=== PATIENT | male | born 1940 | race Caucasian/White ===

== ENCOUNTER → 2017-01-22 | Outpatient (CLI) | payer MEDICARE ==
--- NOTE | 2017-01-22 09:26 | US ---
EXAMINATION TYPE: US abdomen complete DATE OF EXAM: 01/22/2017 8:11 AM COMPARISON: CT chest April 20, 2010. CLINICAL HISTORY: R10.9 Abdominal pain. Pelvic pain per patient with scrotal pain. Patient had bilate ral inguinal hernia repair with mesh EXAM MEASUREMENTS: Liver Length: 10.5 cm Gallbladder Wall: 0.1 cm CBD: 0.4 cm Spleen: 11.0 cm Right Kidney: 9.7 x 6.0 x 5.4 cm Left Kidney: 10.1 x 5.5 x 5.0 cm Pancreas: hyperchoic Liver: fatty and heterogeneous Gallbladder: wnl Evidence for sonographic Benitez's sign: No CBD: wnl Spleen: wnl Right Kidney: wnl Left Kidney: wnl Upper IVC: wnl Abd Aorta: intimal wall thickening mid and distally, ectatic appearance distally Visualized liver is heterogeneously hyperechoic in appearance. Evaluation for focal masses is subopti mal due to the heterogeneity. Aorta is ectatic measuring up to 2.8 cm transversely distally. IMPRESSION: Diffuse fatty infiltration of liver is felt present. Ectasia of distal abdominal aorta bu t no greater than 3 cm aneurysmal change. No significant acute finding is seen.
--- NOTE | 2017-01-22 10:16 | US ---
EXAMINATION TYPE: US scrotum with doppler. Grayscale and color Doppler Duplex imaging performed of eugenio pittman scrotum. DATE OF EXAM: 01/22/2017 8:39 AM COMPARISON: NONE CLINICAL HISTORY: N45.1 Epididymitis; bilateral scrotal pain radiating to pelvis; taking testosterone injections for small gland size; bilateral inguinal hernia repair with mesh per patient history. EXAM MEASUREMENTS: TESTICLES: Right Testicle: 2.2 x 1.2 x 1.5 cm Left Testicle: 2.2 x 1.0 x 1.6 cm EPIDIDYMIS HEAD: Right Epididymis: 0.7 x 0.6 x 0.6 cm Left Epididymis: 1.0 x 0.4 x 0.6 cm Doppler performed to assess for testicular vascularity; good bilateral color flow and waveforms are s een. There is no evidence of testicular torsion. Hydrocele noted in right scrotal sac = 1.0 x 1.1 x 1.5cm . Left epididymal head cyst is imaged = 1.0 x 0.3 x 1.0cm. Left testicular appendix noted superiorly = 0.2 x 0.3 x 0.4cm. Cyst noted medially within left testicle = 0.2 x 0.1 x 0.1cm. Hydrocele is noted i n left scrotal sac = 3.2 x 1.7 x 0.5cm. Presence of varicoceles: none There is small right scrotal fluid collection or hydroceles seen medially. There is 3 mm cyst in the left epididymis. There is slightly larger but small sized left scrotal flui d collection or hydrocele. There is 1 mm simple appearing cyst in the periphery of the left testicle. Comparison views shows symmetric blood flow to both testicles without abnormal eccentric skin thicken ing. IMPRESSION: Symmetric small appearing bilateral testicles confirmed.
== END | disposition home or self-care (01) ==
LOC: RADUSWWP 07:36
PROVIDERS: ATTEND Family Medicine
DX: K76.0 Fatty (change of) liver, not elsewhere classified (principal); I77.811 Abdominal aortic ectasia
CPT/HCPCS: 76700; 76870; 93975

== ENCOUNTER → 2018-04-04 | Outpatient (CLI) | payer MEDICARE ==
--- NOTE | 2018-04-04 12:31 | XR ---
EXAMINATION TYPE: XR foot complete bilateral DATE OF EXAM: 04/04/2018 CLINICAL HISTORY: Bilateral feet pain for 8 months with no known injury. TECHNIQUE: Frontal, lateral, and oblique images of the bilateral feet were obtained. COMPARISON: None FINDINGS: There is no acute fracture/dislocation evident in either foot. With regards to the left foot there is a small Achilles enthesophyte and spurring of the dorsal midfo ot. There is also mild joint space narrowing and small marginal osteophytes as well as opposing surfa ce sclerosis of the first metatarsophalangeal joint and distal interphalangeal joints. No suspicious osseous lesion is seen. Small vessel atherosclerosis is noted. With regards to the right foot there is a similar-appearing degree of opposing surface sclerosis, nicole nt space narrowing and small marginal osteophytes of the first metatarsal phalangeal joint and distal interphalangeal joints with a lesser degree of dorsal spurring of the midfoot. Small vessel atherosc lerosis is also seen. No suspicious osseous lesion. IMPRESSION: 1. No acute fracture or dislocation in either foot. 2. Moderate midfoot and forefoot arthropathy, left greater than right. 3. Small left Achilles enthesophyte/heel spur. 4. Small vessel atherosclerosis that may indicate peripheral arterial disease.
== END | disposition home or self-care (01) ==
LOC: RADXRMAIN 11:15
PROVIDERS: ATTEND Podiatrist Foot Surgery
DX: M19.072 Primary osteoarthritis, left ankle and foot (principal); M19.071 Primary osteoarthritis, right ankle and foot; M77.52 Other enthesopathy of left foot and ankle; I70.203 Unspecified atherosclerosis of native arteries of extremities, bilateral legs

== ENCOUNTER 2018-04-16 10:32 | Emergency (ER) | payer MEDICARE ==
[2018-04-16 10:45] VITALS: BP 137/80; PULSE 83; RESP 18; TEMP 98.4
[2018-04-16] MEDS ORDERED: AMOXIC-POT CLAV 875-125MG 1 EACH TAB PO STA (11:05)
[2018-04-16] MEDS ORDERED: DIPH,PERTUS(ACELL)TETVAC-LF 0.5 ML VIAL IM ONE (11:05)
--- NOTE | 2018-04-16 11:06 | ED ---
General Adult HPI - General Chief complaint: Animal Bite Stated complaint: Cat Bite Time Seen by Provider: 04/16/18 10:54 Source: patient, RN notes reviewed, old records reviewed Mode of arrival: ambulatory Limitations: no limitations - History of Present Illness Initial comments: This is a 77-year-old male the ER for evaluation. Patient presents today for evaluation for Rate. Patient is Right to right hand. Right arm. Patient denies medical complaints. Patient was just concerned about possible need of tetanus shot. Patient remains asymptomatic. Denies any bleeding from the site currently, he did wash site thoroughly - Related Data Home Medications Medication Instructions Recorded Confirmed Aspirin 81 mg PO DAILY 05/23/15 08/29/16 Atorvastatin [Lipitor] 80 mg PO DAILY 05/23/15 08/29/16 Metoprolol Succinate [Toprol XL] 25 mg PO DAILY 05/23/15 08/29/16 Omeprazole 20 mg PO DAILY 05/23/15 08/29/16 Previous Rx's Medication Instructions Recorded Acetaminophen-Codeine 300-30mg 1 each PO Q6H PRN #20 tablet 05/23/15 [Tylenol #3] Acyclovir [Zovirax] 800 mg PO 5XD 7 Days cap 05/23/15 Hofzdwlw-Pvqsopahj-Ox Ophth 2 drops BOTH EYES TID 7 Days ml 05/23/15 [Cortisporin Ophth Susp] Amoxic-Pot Clav 875-125Mg 1 tab PO Q12HR #20 tablet 04/16/18 [Augmentin 875-125] Allergies Allergy/AdvReac Type Severity Reaction Status Date / Time heparin Allergy Unknown Verified 04/16/18 10:45 Childhood Review of Systems ROS Statement: Those systems with pertinent positive or pertinent negative responses have been documented in the HPI. ROS Other: All systems not noted in ROS Statement are negative. Past Medical History Past Medical History: Coronary Artery Disease (CAD), Chest Pain / Angina, GERD/ Reflux, Hyperlipidemia, Hypertension History of Any Multi-Drug Resistant Organisms: None Reported Past Surgical History: Coronary Bypass/CABG, Heart Catheterization With Stent, Hernia Repair Additional Past Surgical History / Comment(s): quadruple bypass Past Psychological History: No Psychological Hx Reported Smoking Status: Never smoker Past Alcohol Use History: Occasional Past Drug Use History: None Reported General Exam - General Exam Comments Initial Comments: Right hand puncture wound forearm Limitations: no limitations General appearance: alert, in no apparent distress Head exam: Present: atraumatic, normocephalic, normal inspection Eye exam: Present: normal appearance, PERRL, EOMI. Absent: scleral icterus, conjunctival injection, periorbital swelling ENT exam: Present: normal exam, mucous membranes moist Neck exam: Present: normal inspection. Absent: tenderness, meningismus, lymphadenopathy Respiratory exam: Present: normal lung sounds bilaterally. Absent: respiratory distress, wheezes, rales, rhonchi, stridor Cardiovascular Exam: Present: regular rate, normal rhythm, normal heart sounds. Absent: systolic murmur, diastolic murmur, rubs, gallop, clicks GI/Abdominal exam: Present: soft, normal bowel sounds. Absent: distended, tenderness, guarding, rebound, rigid Extremities exam: Present: normal inspection, full ROM, normal capillary refill. Absent: tenderness, pedal edema, joint swelling, calf tenderness Back exam: Present: normal inspection Neurological exam: Present: alert, oriented X3, CN II-XII intact Psychiatric exam: Present: normal affect, normal mood Skin exam: Present: warm, dry, intact, normal color. Absent: rash Course Vital Signs 04/16/18 10:41 Temperature 98.4 F Pulse Rate 83 Respiratory 18 Rate Blood Pressure 137/80 O2 Sat by Pulse 97 Oximetry - Reevaluation(s) Reevaluation #1: Patient spoke at length regarding possible need for rabies shots prophylaxis, patient is refusing treatment at this time Medical Decision Making - Medical Decision Making 77 male the ER for Leg, patient given antibiotics and tetanus, patient can be discharged home, patient encouraged to return if he second gases not taking medication today as the cat is a feral cat Disposition Clinical Impression: Bite by animal, Cat bite Disposition: HOME SELF-CARE Condition: Good Instructions: Animal Bite (ED) Prescriptions: Amoxic-Pot Clav 875-125Mg [Augmentin 875-125] 1 tab PO Q12HR #20 tablet Is patient prescribed a controlled substance at d/c from ED?: No Referrals: Kevin Gann MD [Primary Care Provider] - 1-2 days
== END 2018-04-16 11:40 | disposition home or self-care (01) ==
LOC: EC 10:32
DX: S51.831A Puncture wound without foreign body of right forearm, initial encounter (principal); S61.431A Puncture wound without foreign body of right hand, initial encounter; I25.119 Atherosclerotic heart disease of native coronary artery with unspecified angina pectoris; K21.9 Gastro-esophageal reflux disease without esophagitis; E78.5 Hyperlipidemia, unspecified; I10 Essential (primary) hypertension; Z23 Encounter for immunization; Z79.82 Long term (current) use of aspirin; Z79.899 Other long term (current) drug therapy; Z88.8 Allergy status to other drugs, medicaments and biological substances; Z95.5 Presence of coronary angioplasty implant and graft; W55.01XA Bitten by cat, initial encounter
CPT/HCPCS: 90471; 90715; 99283

== ENCOUNTER → 2018-12-28 | Outpatient (CLI) | payer OTHER ==
--- NOTE | 2018-12-28 17:16 | CT ---
EXAMINATION TYPE: CT chest wo con DATE OF EXAM: 12/28/2018 COMPARISON: 04/20/2010 HISTORY: cough. exposure to asbestos years ago. CT DLP: 678.3 mGycm, Automated exposure control for dose reduction was used. CONTRAST: None TECHNIQUE: Axial images were obtained at 1 mm thick sections at 10 mm intervals. This will limit po rtions of the examination which may not be visualized within the [id number]. Images were obtained in the prone and supine views. FINDINGS: Portion of the thyroid visualized is normal. Scattered peripheral linear markings are pres ent compatible some pulmonary fibrosis. Tiny nodules within the periphery of the right upper lobe. Se rachel 4 image 14. Additional nodules are not identified. Significant change between the prone and supi ne views is not identified. There is a prominent pretracheal lymph node measuring 1.2 cm. The ascending aorta diameter at the le bharati of the main pulmonary artery is 3.2 cm. The main pulmonary artery diameter at the bifurcation is 2.7 cm. Moderate coronary artery calcification is present. Limited CT sections are obtained through the upper abdomen. Large hiatal hernia is present. IMPRESSIONS: 1. Peripheral increased lung markings compatible some early pulmonary fibrosis. 2. Large hiatal hernia. 3. Prominent lymph node measuring 1.2 cm. Normal less than 1 cm pretracheal space.
== END | disposition home or self-care (01) ==
LOC: RADCTMAIN 14:30
PROVIDERS: ATTEND Internal Medicine Critical Care Medicine
DX: J98.4 Other disorders of lung (principal); K44.9 Diaphragmatic hernia without obstruction or gangrene
CPT/HCPCS: 71250

== ENCOUNTER → 2019-02-02 | Outpatient (CLI) | payer MEDICARE, OTHER ==
[2019-02-02 15:38] LABS: Basophils % (A) 1 %; Eosinophils # (A) 0.1 k/uL (0-0.7); Eosinophils % (A) 1 %; HCT 43.1 % (39.0-53.0); HGB 13.8 gm/dL (13.0-17.5); Lymphocytes # (A) 1.5 k/uL (1.0-4.8); Lymphocytes % (A) 23 %; MCH 27.5 pg (25.0-35.0); Mean Platelet Volume 7.3; Monocytes # (A) 0.4 k/uL (0-1.0); Monocytes % (A) 7 %; Neutrophils # (A) 4.2 k/uL (1.3-7.7); Neutrophils % (A) 66 %; Platelet Count 216 k/uL (150-450); RBC 5.01 m/uL (4.30-5.90); RDW 15.4 % (11.5-15.5); WBC 6.5 k/uL (3.8-10.6)
[2019-02-02 15:58] LABS: INR 0.9 (<1.2); Partial Thromboplastin Time 23.3 sec (22.0-30.0); Prothrombin Time 10.2 sec (9.0-12.0)
[2019-02-02 16:00] LABS: Anion Gap 7 mmol/L; Blood Urea Nitrogen 16 mg/dL (9-20); Carbon Dioxide 28 mmol/L (22-30); Chloride 104 mmol/L (98-107); Potassium 4.8 mmol/L (3.5-5.1); Sodium 139 mmol/L (137-145)
== END ==
LOC: LABWHC1 14:12
PROVIDERS: ATTEND Thoracic Surgery (Cardiothoracic Vascular Surgery)
DX: Z01.818 Encounter for other preprocedural examination (principal); Z01.812 Encounter for preprocedural laboratory examination; R91.8 Other nonspecific abnormal finding of lung field
CPT/HCPCS: 36415; 80051; 82565; 84520; 85025; 85610; 85730; 93005

== ENCOUNTER 2019-02-16 05:56 | Inpatient (IN) | payer OTHER ==
[2019-02-14 08:22] VITALS: BMI 22.2
[~2019-02-16 05:56] MED LIST: ceFAZolin IN SWFI 2 GM/20 ML SYRINGE IVP ONE
[2019-02-16] MEDS ORDERED: LACTATED RINGERS 1,000 ML IV SCH (06:08)
[2019-02-16] MEDS ORDERED: ONDANSETRON 4 MG/2 ML VIAL IVP ONE (06:08)
[2019-02-16] MEDS ORDERED: LIDOCAINE 1% 20 ML VIAL (10MG/ML) FOR IV START INTRADERMA PRN (06:08)
[2019-02-16] MEDS ORDERED: DEXAMETHASONE SOD PHOSPHATE 10 MG/ML 1 ML VIAL IV ONE (06:08)
[2019-02-16] MEDS ORDERED: MIDAZOLAM 2 MG/2 ML VIAL IV PRN (06:08)
[2019-02-16] MEDS ORDERED: HYDROmorphone 0.5 MG/0.5 ML SYRINGE IVP PRN (06:08)
[2019-02-16] MEDS ORDERED: SCOPOLAMINE 1.5MG/72HR PATCH TRANSDERM ONE (06:08)
[2019-02-16 06:34] LABS: Glucose,Whole Blood 99 mg/dL (75-99)
[2019-02-16] MEDS ORDERED: NEOSTIGMINE 1 MG/ML 10 ML VIAL ONE (07:25)
[2019-02-16] MEDS ORDERED: SUCCINYLCHOLINE CHLORIDE 100 MG/5 ML SYR IV ONE (07:25)
[2019-02-16] MEDS ORDERED: ROCURONIUM BROMIDE 10 MG/ML 10 ML VIAL IV ONE (07:25)
[2019-02-16] MEDS ORDERED: MIDAZOLAM 2 MG/2 ML VIAL ONE (07:25)
[2019-02-16] MEDS ORDERED: PHENYLEPHRINE-0.9% NACL SYG 1 MG/10 ML SYRINGE ONE (07:25)
[2019-02-16] MEDS ORDERED: LIDOCAINE 1% INJ 10MG/ML (20 ML MDV) ONE (07:25)
[2019-02-16] MEDS ORDERED: GLYCOPYRROLATE 0.2 MG/ML 2 ML VIAL ONE (07:25)
[2019-02-16] MEDS ORDERED: fentaNYL (PF) 50 MCG/ML 2 ML AMP ONE (07:25)
[2019-02-16] MEDS ORDERED: PROPOFOL 10 MG/ML 20 ML VIAL IV ONE (07:25)
[2019-02-16] MEDS ORDERED: HYDROmorphone (PF) 1 MG/ML ONE (07:25)
[2019-02-16] MEDS ORDERED: BUPIVACAINE (PF) 0.5% 30 ML VIAL SQ ONE ×2 (07:33→08:37)
[2019-02-16] MEDS ORDERED: GLUCOSAMINE CHONDR PO SCH (09:00)
[2019-02-16] MEDS ORDERED: NON-FORMULARY DRUG (Omega-3 Fatty Acids/Fish Oil [Fish Oil 1,000 Mg Softgel] 1 EACH) PO SCH (09:00)
--- NOTE | 2019-02-16 09:02 | P.OP ---
Date of Procedure: 02/16/19 Preoperative Diagnosis: Bilateral pulmonary infiltrates, history of his asbestos exposure Postoperative Diagnosis: Same Procedure(s) Performed: Right thoracoscopic lung biopsy Anesthesia: JERICHOA Surgeon: Juan David Gonzalez Flour Distributor #1: Ludin Harrison Estimated Blood Loss (ml): 5 IV fluids (ml): 250 Pathology: other (Biopsies of right upper middle and lower lobe were each sent for pathology and culture including routine AFB and fungal cultures) Condition: stable Disposition: PACU Indications for Procedure: 78-year-old male with history of his spasticity exposure well in the [place]. He presents with progressive dyspnea. He is noted to have marketed interstitial disease on his computed tomography scan of the chest. Bronchoscopic workup was negative. Lung biopsy was requested by pulmonary medicine. Operative Findings: There were moderate intrapleural adhesions. The lung tissue itself was of poor compliance and somewhat gritty in consistency. There was moderate anthracotic pigmentation of the lung. Description of Procedure: The patient was brought to the operating room, placed supine on the operating table, anesthetized and intubated. Double lumen endotracheal tube was placed and positioned with fiberoptic bronchoscopy and secured. Patient was turned in the left lateral decubitus position and the right chest sterilely prepped and draped. Bronchoscopic reevaluation of the endotracheal tube noted it to be out of position and it was repositioned appropriately. 3 one-inch incisions were made in the right chest. The right lung was deflated. Pleural space was e ntered and the video thoracoscope placed. The lung was examined with findings as noted above. Biopsies of the upper middle and lower lobes were taken with multiple firings of Endo HUI stapler. Some electrocautery was used to take down adhesions. Each specimen was divided on the back table and portions sent for culture and the remainder sent for pathology. A 28-Japanese chest tube was placed through separate stab incision and positioned posterior apically. It was secured with 0 Ethibond suture. Rib blocks were performed at the level of the incisions with half percent Marcaine. Incisions were closed with layers of Vicryl suture. Prior to closure the lung was reinflated under thoracoscopic guidance. On completion of the procedure skin glue and dry sterile dressings were applied. The patient was turned supine and extubated and transferred to recovery in stable condition.
[2019-02-16 09:20] LABS: Glucose,Whole Blood 108 mg/dL (75-99)
--- NOTE | 2019-02-16 09:27 | XR ---
EXAMINATION TYPE: XR chest 1V portable DATE OF EXAM: 02/16/2019 COMPARISON: 12/23/2018 HISTORY: Chest pain status post VATS TECHNIQUE: Single frontal view of the chest is obtained. FINDINGS: Right-sided thoracostomy tube terminates at the right lung apex. There is no appreciable r esidual pneumothorax. Post CABG changes of the chest are noted. Patchy right basilar consolidation an d trace pleural effusions with retrocardiac airspace disease has developed in the interim. Large hiat al hernia is noted. Osseous structures are mildly demineralized. IMPRESSION: New bibasilar opacities, likely atelectasis and trace pleural effusions. Right thoracost anna tube terminates at the right lung apex with no residual pneumothorax noted.
[2019-02-16] MEDS ORDERED: fentaNYL (PF) 50 MCG/ML 2 ML AMP IVP ONE ×2 (09:28→09:47)
[2019-02-16 11:24] LABS: Glucose,Whole Blood 101 mg/dL (75-99)
[2019-02-16] MEDS ORDERED: IPRATROPIUM-ALBUTEROL 3 ML NEB IH PRN (11:33)
[2019-02-16] MEDS ORDERED: ONDANSETRON 4 MG/2 ML VIAL IVP PRN (11:33)
[2019-02-16] MEDS ORDERED: DEXTROSE 5%-0.45% NACL 1,000 ML IV SCH (11:33)
[2019-02-16] MEDS: MULTIVITAMINS, THERA 1 EACH TAB PO SCH (11:42)
[2019-02-16] MEDS: traMADol 50 MG TAB PO SCH ×4 (11:42→21:50)
[2019-02-16] MEDS: PANTOPRAZOLE 40 MG TABLET PO SCH (11:42)
[2019-02-16] MEDS: KETOROLAC 30 MG/ML 1 ML VIAL IVP SCH ×3 (11:44→23:04)
[2019-02-16] MEDS: CLOPIDOGREL 75 MG TAB PO SCH (11:44)
[2019-02-16] MEDS: METOPROLOL SUCCINATE (ER) 25 MG TAB.ER.24H PO SCH (11:44)
[2019-02-16] MEDS: IPRATROPIUM-ALBUTEROL 3 ML NEB IH SCH ×3 (12:53→21:52)
[2019-02-16] MEDS: HEPARIN SODIUM,PORCINE 5,000 UNIT/ML 1 ML VIAL SQ SCH ×2 (15:15→22:59)
[2019-02-16] MEDS: ceFAZolin IN SWFI 2 GM/20 ML SYRINGE IVP SCH ×2 (15:18→23:04)
[2019-02-16] MEDS ORDERED: MELATONIN 3 MG TABLET PO PRN (15:43)
[2019-02-16] MEDS ORDERED: ACETAMINOPHEN TAB 500 MG TAB PO PRN (15:43)
[2019-02-16 16:26] LABS: Glucose,Whole Blood 155 mg/dL (75-99)
--- NOTE | 2019-02-16 19:19 | P.CNPUL ---
History of Present Illness Consult date: 02/16/19 Chief complaint: Interstitial lung disease History of present illness: This is a 78-year-old male patient who has been followed up in our office regarding interstitial lung disease. The patient has a history of asbestos exposure to the [place]. The patient has developed bilateral pulmonary fibrosis and facility diagnosis was needed to establish a final diagnoses and for that reason the patient was brought in for a wedge biopsy of the lung. For now, the patient is known to have coronary disease and previous bypass surgery in 2009. He has undergone further cardiac intervention and stenting. He is also known to have repair of a previous hiatal hernia back in 1991 and has hypertension and hyperlipidemia. I saw this patient immediately after his surgery. He was doing well. He underwent a right thoracoscopy with biopsy of the right upper and middle and lower lobe where the sample was sent for microbial cultures and pathologic analysis. This was done on the right side. The patient currently is a chest tube in place. There is minimal amount of air leak. No significant bloody output. He postop chest x-ray shows some basilar opacity likely atelectasis and trace pleural effusion. The right-sided chest tube is in place. No evidence of any pneumothorax. Review of Systems Constitutional: Denies chills, Denies fever Eyes: right as per HPI Ears: deny: decreased hearing, ear discharge, earache, tinnitus Cardiovascular: Reports decreased exercise tolerance, Reports dyspnea on exertion, Reports shortness of breath Respiratory: Reports cough, Reports dyspnea Gastrointestinal: Reports as per HPI Genitourinary: Reports as per HPI Musculoskeletal: Reports as per HPI Musculoskeletal: absent: ankle pain, ankle stiffness, ankle swelling Integumentary: Reports as per HPI Neurological: Reports as per HPI Psychiatric: Reports as per HPI Endocrine: Reports as per HPI Hematologic/Lymphatic: Reports as per HPI Allergic/Immunologic: Reports as per HPI Past Medical History Past Medical History: Coronary Artery Disease (CAD), Diabetes Mellitus, GERD/Reflux, Hyperlipidemia, Hypertension, Osteoarthritis (OA) Additional Past Medical History / Comment(s): RLS, SOB w/exertion, weight loss, cough started in Aug., diet controlled diabetic, has hiatal hernia History of Any Multi-Drug Resistant Organisms: None Reported Past Surgical History: Coronary Bypass/CABG, Heart Catheterization With Stent, Hernia Repair, Tonsillectomy Additional Past Surgical History / Comment(s): quadruple bypass 2009 Past Anesthesia/Blood Transfusion Reactions: No Reported Reaction Date of Last Stent Placement:: 2010 Smoking Status: Never smoker - Past Family History Father Family Medical History: Congestive Heart Failure (CHF) Medications and Allergies Home Medications Medication Instructions Recorded Confirmed Type Aspirin 81 mg PO HS 05/23/15 02/16/19 History Atorvastatin [Lipitor] 80 mg PO HS 05/23/15 02/16/19 History Metoprolol Succinate [Toprol XL] 25 mg PO DAILY 05/23/15 02/16/19 History Omeprazole 20 mg PO DAILY 05/23/15 02/16/19 History Clopidogrel [Plavix] 75 mg PO DAILY 02/14/19 02/16/19 History Glucosamine-Chondr 500-400Mg 1 tab PO BID 02/14/19 02/16/19 History Multivitamins, Thera [Multivitamin 1 tab PO DAILY 02/14/19 02/16/19 History (formulary)] Naproxen Sodium [Aleve] 220 mg PO BID PRN 02/14/19 02/16/19 History [place]-3 Fatty Acids/Fish Oil [Fish 1 cap PO BID 02/14/19 02/16/19 History Oil 1,000 mg Softgel] Allergies Allergy/AdvReac Type Severity Reaction Status Date / Time heparin Allergy caused Verified 02/16/19 10:02 blood clotting Physical Exam Vitals: Vital Signs Temp Pulse Pulse Resp BP Pulse Ox 02/16/19 16:44 88 02/16/19 16:30 92 18 100 02/16/19 15:29 98.2 F 92 18 122/78 91 L 02/16/19 12:54 86 18 02/16/19 12:30 86 145/85 97 02/16/19 12:00 84 18 154/92 100 02/16/19 11:30 96.4 F L 82 154/86 97 02/16/19 11:00 73 133/85 99 02/16/19 10:45 71 129/83 99 02/16/19 10:30 77 135/86 98 02/16/19 10:15 96.2 F L 83 16 132/89 91 L 02/16/19 09:48 69 16 134/76 100 02/16/19 09:37 69 17 134/75 100 02/16/19 09:23 70 16 133/69 99 02/16/19 09:14 81 17 141/74 94 L 02/16/19 09:04 97.5 F L 87 16 156/83 95 02/16/19 06:18 98.4 F 84 16 144/65 93 L Intake and Output 02/16/19 02/16/19 02/16/19 06:59 14:59 22:59 Intake Total 500 1426 320 Output Total 5 27 Balance 500 1421 293 Intake: IV 500 1200 Oral 226 320 Output: Chest Tube Drainage 27 Chest Tube Right 27 Estimated Blood Loss 5 Gen. appearance, comfortable in no acute respiratory distress. The patient is sedated lethargic following his surgery. Head exam was generally normal. There was no scleral icterus or corneal arcus. Mucous membranes were moist. Neck was supple and without jugular venous distension, thyromegaly, or carotid bruits. Carotids were easily palpable bilaterally. There was no adenopathy. Lungs sounds revealed coarse crackles in the mid and lower lung lowe bilaterally. There is a right-sided chest tube in place. Surgical wound site over the right chest that is dry clean and intact. There is a sternotomy scar from previous bypass surgery over the anterior chest. Cardiac exam revealed the PMI to be normally situated and sized. The rhythm was regular and no extrasystoles were noted during several minutes of auscultation. The first and second heart sounds were normal and physiologic splitting of the second heart sound was noted. There were no murmurs, rubs, clicks, or gallops. BeAbdominal exam revealed normal bowel sounds. The abdomen was soft, non-tender, and without masses, organomegaly, or appreciable enlargement of the abdominal aorta Examination of the extremities revealed easily palpable radial, femoral and pedal pulses. There was no cyanosis, clubbing or edema. Examination of the skin revealed no evidence of significant rashes, suspicious appearing nevi or other concerning lesions. Neurologically the patient is awake and alert and there is no focal neurological deficits. 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 The patient underwent a thoracoscopic assisted wedge biopsy of the right lung awaiting final pathologic evaluation and answer. Currently is postop day #0. He is doing well. The right-sided chest tube in place. Right lung is well expanded and there is no evidence of any pneumothorax. Pain is under good control. 2 coronary artery disease with previous bypass surgery in 2009 and previous coronary intervention stenting in 2010 3 diabetes mellitus 4 hypertension 5 hyperlipidemia 6 restless leg syndrome syndrome 7 history of hiatal hernia and has been surgically fixed Plan Doing well. No complaints. Continue pain control with Toradol and Ultram on a when necessary basis. Incentive spirometer. Monitor chest tube output and air leak. Repeat chest x-ray in the morning. DuoNeb nebulized treatments around the clock. We'll continue to follow. He is offered heparin subcu for DVT prophylaxis.
[2019-02-16] MEDS: ASPIRIN 81 MG PO SCH (20:09)
[2019-02-16] MEDS: ATORVASTATIN 80 MG TAB PO SCH (20:09)
[2019-02-16 20:42] LABS: Glucose,Whole Blood 173 mg/dL (75-99)
[2019-02-17] MEDS: KETOROLAC 30 MG/ML 1 ML VIAL IVP SCH ×4 (05:35→23:16)
[2019-02-17 06:03] LABS: Glucose,Whole Blood 123 mg/dL (75-99)
[2019-02-17 06:27] LABS: Basophils % (A) 0 %; Eosinophils # (A) 0.1 k/uL (0-0.7); Eosinophils % (A) 1 %; HCT 37.5 % (39.0-53.0); HGB 12.3 gm/dL (13.0-17.5); Lymphocytes # (A) 0.9 k/uL (1.0-4.8); Lymphocytes % (A) 10 %; MCH 27.5 pg (25.0-35.0); MCHC 32.8 g/dL (31.0-37.0); MCV 83.8 fL (80.0-100.0); Mean Platelet Volume 6.9; Monocytes # (A) 0.6 k/uL (0-1.0); Monocytes % (A) 7 %; Neutrophils % (A) 80 %; Platelet Count 192 k/uL (150-450); RBC 4.48 m/uL (4.30-5.90); RDW 15.3 % (11.5-15.5); WBC 8.7 k/uL (3.8-10.6)
[2019-02-17 06:36] LABS: Anion Gap 6 mmol/L; Blood Urea Nitrogen 12 mg/dL (9-20); Calcium 8.6 mg/dL (8.4-10.2); Carbon Dioxide 30 mmol/L (22-30); Chloride 97 mmol/L (98-107); Glucose 109 mg/dL (74-99); Potassium 4.4 mmol/L (3.5-5.1); Sodium 133 mmol/L (137-145)
[2019-02-17] MEDS ORDERED: PANTOPRAZOLE 40 MG TABLET PO SCH (07:30)
[2019-02-17] MEDS: IPRATROPIUM-ALBUTEROL 3 ML NEB IH SCH ×4 (08:11→19:38)
--- NOTE | 2019-02-17 09:08 | XR ---
EXAMINATION TYPE: XR chest 1V DATE OF EXAM: 02/17/2019 COMPARISON: 02/16/2019 INDICATION: Post VATS TECHNIQUE: Single frontal view of the chest is obtained. FINDINGS: The heart size is prominent. The pulmonary vasculature is normal. There is increased density in the right lower lung field. Nodular type density may be in the right in frahilar region. Increased infiltrate is through the left base. A small pleural effusion may be prese nt. There is interval development of a right-sided pneumothorax. Significant subcutaneous emphysema is de veloping over the interval. The right-sided chest tube remains in position with the tip near the apex . IMPRESSION: 1. Developing right side pneumothorax. 2. Subcutaneous emphysema 3. Bibasilar infiltrates.
[2019-02-17] MEDS: HEPARIN SODIUM,PORCINE 5,000 UNIT/ML 1 ML VIAL SQ SCH ×3 (09:43→23:16)
[2019-02-17] MEDS: MULTIVITAMINS, THERA 1 EACH TAB PO SCH (09:47)
[2019-02-17] MEDS: METOPROLOL SUCCINATE (ER) 25 MG TAB.ER.24H PO SCH (09:47)
[2019-02-17] MEDS: PANTOPRAZOLE 40 MG TABLET PO SCH (09:47)
[2019-02-17] MEDS: CLOPIDOGREL 75 MG TAB PO SCH (09:48)
[2019-02-17] MEDS: traMADol 50 MG TAB PO SCH ×4 (09:48→20:34)
[2019-02-17 11:48] LABS: Glucose,Whole Blood 135 mg/dL (75-99)
--- NOTE | 2019-02-17 13:11 | P.PN ---
Subjective Progress Note Date: 02/17/19 Principal diagnosis: Bilateral pulmonary infiltrates, history of asbestos exposure. Previous medical history of coronary artery disease status post CABG in [address] ents in 2010, hiatal hernia status post mesh repair in 1991 with subsequent recurrence, diet controlled diabetes, hypertension, hypercholesterolemia. POD #1 right thoracoscopic lung biopsy The patient is currently sitting up in bed in no acute distress on the cardiac stepdown unit. He states pain is controlled with current medication regimen, denies shortness of breath. Right pleural chest tube remains to waterseal, tiny intermittent air leak present with a strong coughing. Patient has been ambulatory without any difficulty. He is working diligently on his incentive spirometer. Objective - Vital Signs Vital signs: Vital Signs Temp 97.5 F L 02/17/19 04:00 Pulse 89 02/17/19 04:00 Resp 16 02/17/19 04:00 BP 112/73 02/17/19 04:00 Pulse Ox 91 L 02/17/19 04:00 Intake & Output 02/16/19 02/17/19 02/17/19 18:59 06:59 18:59 Intake Total 1746 Output Total 32 56 Balance 1714 -56 Weight 63.5 kg Intake: IV 1200 Oral 546 Output: Chest Tube Drainage 27 6 Chest Tube Right 27 6 Urine 50 Estimated Blood Loss 5 Other: Voiding Method Toilet # Voids 1 - Constitutional General appearance: Present: cooperative, no acute distress - Respiratory Details: Lungs sounds diminished bilaterally. Respirations even, nonlabored. Currently on room air with oxygen saturation 91%. Able to achieve 1500 mL on his incentive spirometry. Right pleural chest tube to waterseal, no drainage overnight, 55 mL serosanguineous drainage since surgery, tiny intermittent air leak present with forceful coughing. - Cardiovascular Details: S1, S2 present. Regular rate and rhythm, sinus rhythm on telemetry. Palpable pulses bilaterally. No edema present. No calf pain or tenderness noted. SCDs present. - Gastrointestinal Gastrointestinal Comment(s): Abdomen soft, non-tender, non-distended. Active bowel sounds x 4 quadrants. Tolerating diet. - Genitourinary Genitourinary Comment(s): Voiding clear, yellow urine. - Integumentary Integumentary Comment(s): Skin warm and dry with evidence of good perfusion. Right chest tube site covered with dry, intact dressing. - Neurologic Neurologic: Present: CNII-XII intact - Musculoskeletal Musculoskeletal: Present: gait normal, strength equal bilaterally - Psychiatric Psychiatric: Present: A&O x's 3, appropriate affect, intact judgment & insight - Allied health notes Allied health notes reviewed: nursing - Labs CBC & Chem 7: 02/17/19 05:57 02/17/19 05:57 Labs: Abnormal Lab Results - Last 24 Hours (Table) 02/16/19 02/16/19 02/16/19 Range/Units 09:17 11:22 16:24 Hgb (13.0-17.5) gm/dL Hct (39.0-53.0) % Lymphocytes # (1.0-4.8) k/uL Sodium (137-145) mmol/L Chloride (98-107) mmol/L Glucose (74-99) mg/dL POC Glucose (mg/dL) 108 H 101 H 155 H (75-99) mg/dL 02/16/19 02/17/19 02/17/19 Range/Units 20:35 05:57 05:57 Hgb 12.3 L (13.0-17.5) gm/dL Hct 37.5 L (39.0-53.0) % Lymphocytes # 0.9 L (1.0-4.8) k/uL Sodium 133 L (137-145) mmol/L Chloride 97 L (98-107) mmol/L Glucose 109 H (74-99) mg/dL POC Glucose (mg/dL) 173 H (75-99) mg/dL 02/17/19 Range/Units 06:01 Hgb (13.0-17.5) gm/dL Hct (39.0-53.0) % Lymphocytes # (1.0-4.8) k/uL Sodium (137-145) mmol/L Chloride (98-107) mmol/L Glucose (74-99) mg/dL POC Glucose (mg/dL) 123 H (75-99) mg/dL Microbiology - Last 24 Hours (Table) 02/16/19 08:40 Gram Stain - Preliminary Lung - Right Tissue Culture - Preliminary 02/16/19 08:40 Acid Fast Bacilli Smear - Final Lung - Right Lower Lobe Acid Fast Bacilli Culture - Preliminary 02/16/19 08:40 Acid Fast Bacilli Smear - Final Lung - Right Upper Lobe Acid Fast Bacilli Culture - Preliminary 02/16/19 08:40 Acid Fast Bacilli Smear - Final Lung - Right Acid Fast Bacilli Culture - Preliminary 02/16/19 08:40 Gram Stain - Preliminary Lung - Right Lower Lobe Tissue Culture - Preliminary 02/16/19 08:40 Gram Stain - Preliminary Lung - Right Upper Lobe Tissue Culture - Preliminary 02/16/19 08:40 Fungal Culture - Preliminary Lung - Right 02/16/19 08:40 Anaerobic Culture - Preliminary Lung - Right Lower Lobe 02/16/19 08:40 Anaerobic Culture - Preliminary Lung - Right Upper Lobe 02/16/19 08:40 Fungal Culture - Preliminary Lung - Right Lower Lobe 02/16/19 08:40 Fungal Culture - Preliminary Lung - Right Upper Lobe 02/16/19 08:40 Anaerobic Culture - Preliminary Lung - Right - Imaging and Cardiology Chest x-ray: image reviewed Assessment and Plan Assessment: 1. Bilateral pulmonary infiltrates, history of asbestos exposure, s/p right thoracoscopic lung biopsy 2. History of coronary artery disease status post CABG in 2009 with subsequent stents in 2010 3. Hiatal hernia status post mesh repair in 1991 with subsequent recurrence 4. Diet controlled diabetes 5. Hypertension 6. Hypercholesterolemia Plan: 1. Will keep chest tube for another 24 hours. Repeat CXR in the morning. 2. Encourage continued incentive spirometry at home. 3. Pain control per current medication regimen. 4. Increase activity, ambulate as tolerated. 5. More recommendations to follow Time with Patient: Greater than 30
--- NOTE | 2019-02-17 14:56 | P.PN ---
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 The patient has a history of asbestos exposure to the [employer]. The patient has developed bilateral pulmonary fibrosis and facility diagnosis was needed to establish a final diagnoses and for that reason the patient was brought in for a wedge biopsy of the lung. For now, the patient is known to have coronary disease and previous bypass surgery in 2009. He has undergone further cardiac intervention and stenting. He is also known to have repair of a previous hiatal hernia back in 1991 and has hypertension and hyperlipidemia. I saw this patient immediately after his surgery. He was doing well. He underwent a right thoracoscopy with biopsy of the right upper and middle and lower lobe where the sample was sent for microbial cultures and pathologic analysis. This was done on the right side. The patient currently is a chest tube in place. There is minimal amount of air leak. No significant bloody output. He postop chest x-ray shows some basilar opacity likely atelectasis and trace pleural effusion. The right-sided chest tube is in place. No evidence of any pneumothorax. On 02/17/2019 patient seen in follow-up in selective care unit, he is resting comfortably in bed, in no acute distress, room air pulse ox is 92%, patient is afebrile, hemodynamically stable, respirations are even and nonlabored, today's chest x-ray has been reviewed, showing some increased density in the right lower lung field, developing right-sided pneumothorax, subcutaneous emphysema, and bibasilar infiltrates. Patient is working on his incentive spirometer. right pleural chest tube remains to water seal with a tiny intermittent air leak. Objective - Vital Signs Vital signs: Vital Signs Temp 98 F 02/17/19 12:00 Pulse 73 02/17/19 12:00 Resp 16 02/17/19 12:00 BP 135/70 02/17/19 12:00 Pulse Ox 92 L 02/17/19 12:00 Intake & Output 02/16/19 02/17/19 02/17/19 18:59 06:59 18:59 Intake Total 1746 240 Output Total 32 56 Balance 1714 -56 240 Weight 63.5 kg Intake: IV 1200 Oral 546 240 Output: Chest Tube Drainage 27 6 Chest Tube Right 27 6 Urine 50 Estimated Blood Loss 5 Other: Voiding Method Toilet Toilet # Voids 1 - Exam GENERAL EXAM: Alert, pleasant, 78-year-old white male, comfortable in no apparent distress. HEAD: Normocephalic/atraumatic. EYES: Normal reaction of pupils, equal size. Conjunctiva pink, sclera white. NOSE: Clear with pink turbinates. THROAT: No erythema or exudates. NECK: No masses, no JVD, no thyroid enlargement, no adenopathy. CHEST: No chest wall deformity. Symmetrical expansion. LUNGS: Equal air entry with no crackles, wheeze, rhonchi or dullness. Right-s ided pleural chest tube to waterseal, no drainage or night, 55 mL of serosanguineous output, and there is a tiny intermittent air leak present with coughing CVS: Regular rate and rhythm, normal S1 and S2, no gallops, no murmurs, no rubs ABDOMEN: Soft, nontender. No hepatosplenomegaly, normal bowel sounds, no guarding or rigidity. EXTREMITIES: No clubbing, no edema, no cyanosis, 2+ pulses and upper and lower extremities. MUSCULOSKELETAL: Muscle strength and tone normal. SPINE: No scoliosis or deformity SKIN: No rashes CENTRAL NERVOUS SYSTEM: Alert and oriented -3. No focal deficits, tone is normal in all 4 extremities. PSYCHIATRIC: Alert and oriented -3. Appropriate affect. Intact judgment and insight. - Labs CBC & Chem 7: 02/17/19 05:57 02/17/19 05:57 Labs: Abnormal Lab Results - Last 24 Hours (Table) 02/16/19 02/16/19 02/17/19 Range/Units 16:24 20:35 05:57 Hgb 12.3 L (13.0-17.5) gm/dL Hct 37.5 L (39.0-53.0) % Lymphocytes # 0.9 L (1.0-4.8) k/uL Sodium (137-145) mmol/L Chloride (98-107) mmol/L Glucose (74-99) mg/dL POC Glucose (mg/dL) 155 H 173 H (75-99) mg/dL 02/17/19 02/17/19 02/17/19 Range/Units 05:57 06:01 11:39 Hgb (13.0-17.5) gm/dL Hct (39.0-53.0) % Lymphocytes # (1.0-4.8) k/uL Sodium 133 L (137-145) mmol/L Chloride 97 L (98-107) mmol/L Glucose 109 H (74-99) mg/dL POC Glucose (mg/dL) 123 H 135 H (75-99) mg/dL Microbiology - Last 24 Hours (Table) 02/16/19 08:40 Gram Stain - Preliminary Lung - Right Lower Lobe Tissue Culture - Preliminary 02/16/19 08:40 Gram Stain - Preliminary Lung - Right Upper Lobe Tissue Culture - Preliminary 02/16/19 08:40 Gram Stain - Preliminary Lung - Right Tissue Culture - Preliminary 02/16/19 08:40 Acid Fast Bacilli Smear - Final Lung - Right Lower Lobe Acid Fast Bacilli Culture - Preliminary 02/16/19 08:40 Acid Fast Bacilli Smear - Final Lung - Right Upper Lobe Acid Fast Bacilli Culture - Preliminary 02/16/19 08:40 Acid Fast Bacilli Smear - Final Lung - Right Acid Fast Bacilli Culture - Preliminary 02/16/19 08:40 Fungal Culture - Preliminary Lung - Right 02/16/19 08:40 Anaerobic Culture - Preliminary Lung - Right Lower Lobe 02/16/19 08:40 Anaerobic Culture - Preliminary Lung - Right Upper Lobe 02/16/19 08:40 Fungal Culture - Preliminary Lung - Right Lower Lobe 02/16/19 08:40 Fungal Culture - Preliminary Lung - Right Upper Lobe 02/16/19 08:40 Anaerobic Culture - Preliminary Lung - Right Assessment and Plan Plan: 1 interstitial lung disease, 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 The patient underwent a thoracoscopic assisted wedge biopsy of the right lung awaiting final pathologic evaluation and answer. Currently is postop day #1. He is doing well. The right-sided chest tube in place. Right lung is well expanded and there is no evidence of any pneumothorax. Pain is under good control. On 02/17/2019 chest x-ray shows a developing right-sided pneumothorax, cutaneous emphysema, and bibasilar infiltrates 2 coronary artery disease with previous bypass surgery in 2009 and previous coronary intervention stenting in 2010 3 diabetes mellitus 4 hypertension 5 hyperlipidemia 6 restless leg syndrome syndrome 7 history of hiatal hernia and has been surgically fixed Plan: Continue encouraging deep breathing and coughing, today's chest x-ray has been reviewed with Dr. Hall, patient has been seeing and evaluated by Dr. Hall, denies any shortness of breath, maintaining good oxygenation, pain is under control. Today's chest x-ray shows developing weakness or pneumothorax, chest tube will remain in place, and there is intermittent air leak present. Wedge biopsy is still pending. We'll continue to follow I performed a history & physical examination of the patient and discussed their management with my nurse practitioner, Kaycee Benitez. I reviewed the nurse practitioner's note and agree with the documented findings and plan of care. Lung sounds are positive for diminished breath sounds at the bases. The findings and the impression was discussed with the patient. I attest to the documentation by the nurse practitioner. Time with Patient: Less than 30
[2019-02-17 16:35] LABS: Glucose,Whole Blood 66 mg/dL (75-99)
[2019-02-17 16:35] LABS: Glucose,Whole Blood 87 mg/dL (75-99)
[2019-02-17 20:32] LABS: Glucose,Whole Blood 77 mg/dL (75-99)
[2019-02-17] MEDS: ASPIRIN 81 MG PO SCH (20:34)
[2019-02-17] MEDS: ATORVASTATIN 80 MG TAB PO SCH (20:34)
[2019-02-18 05:44] LABS: Glucose,Whole Blood 107 mg/dL (75-99)
[2019-02-18] MEDS: KETOROLAC 30 MG/ML 1 ML VIAL IVP SCH ×4 (06:07→23:30)
--- NOTE | 2019-02-18 07:28 | XR ---
EXAMINATION TYPE: XR chest 2V DATE OF EXAM: 02/18/2019 COMPARISON: 02/17/2019 INDICATION: Pneumothorax, post VATS TECHNIQUE: Frontal and lateral views of the chest are obtained. FINDINGS: The heart size is mildly prominent. The pulmonary vasculature is normal. There is a density in the right perihilar region. Some mild increased density is within the right chacorta g base. Previous pneumothorax has diminished over the interval. Some residual remains along the lateral deya n greater towards the lung base.. Extensive subcutaneous emphysema is present some of which is cross ing the midline. IMPRESSION: 1. Diminished right pneumothorax with minimal residual greater at the lung bases.
[2019-02-18] MEDS: MULTIVITAMINS, THERA 1 EACH TAB PO SCH (08:26)
[2019-02-18] MEDS: CLOPIDOGREL 75 MG TAB PO SCH (08:26)
[2019-02-18] MEDS: HEPARIN SODIUM,PORCINE 5,000 UNIT/ML 1 ML VIAL SQ SCH ×3 (08:26→23:29)
[2019-02-18] MEDS: METOPROLOL SUCCINATE (ER) 25 MG TAB.ER.24H PO SCH (08:26)
[2019-02-18] MEDS: PANTOPRAZOLE 40 MG TABLET PO SCH (08:26)
[2019-02-18] MEDS: traMADol 50 MG TAB PO SCH ×4 (08:26→22:05)
[2019-02-18] MEDS: IPRATROPIUM-ALBUTEROL 3 ML NEB IH SCH ×4 (09:33→19:13)
--- NOTE | 2019-02-18 11:25 | P.PN ---
Subjective Progress Note Date: 02/18/19 Principal diagnosis: Bilateral pulmonary infiltrates, history of asbestos exposure. Previous medical history of coronary artery disease status post CABG in [address] ents in 2010, hiatal hernia status post mesh repair in 1991 with subsequent recurrence, diet controlled diabetes, hypertension, hypercholesterolemia. POD #2 right thoracoscopic lung biopsy Continued air leak from chest tube, expected outcome from this type of surgery The patient is currently sitting up in bed in no acute distress on the cardiac stepdown unit. He states pain is controlled with current medication regimen, denies shortness of breath. Right pleural chest tube remains to waterseal, air leak remains present but less than yesterday. Patient has been ambulatory without any difficulty. He is working diligently on his incentive spirometer. Objective - Vital Signs Vital signs: Vital Signs Temp 98.3 F 02/18/19 08:00 Pulse 95 02/18/19 09:50 Resp 18 02/18/19 08:00 BP 140/63 02/18/19 08:00 Pulse Ox 92 L 02/18/19 09:33 Intake & Output 02/17/19 02/18/19 02/18/19 18:59 06:59 18:59 Intake Total 480 280 Output Total 25 Balance 455 280 Weight 65.6 kg Intake: Oral 480 280 Output: Chest Tube Drainage 25 Chest Tube Right 25 Other: Voiding Method Toilet Toilet # Voids 1 - Constitutional General appearance: Present: cooperative, no acute distress - Respiratory Details: Lungs sounds diminished bilaterally. Respirations even, nonlabored. Currently on room air with oxygen saturation 93%. Able to achieve 1500 mL on his incentive spirometry. Right pleural chest tube to waterseal, no drainage overnight, 90 mL serosanguineous drainage since surgery, air leak present but less than yesterday, subcutaneous emphysema present to right chest wall extending superiorly into the right neck. - Cardiovascular Details: S1, S2 present. Regular rate and rhythm, sinus rhythm on telemetry. Palpable pulses bilaterally. No edema present. No calf pain or tenderness noted. SCDs present. - Gastrointestinal Gastrointestinal Comment(s): Abdomen soft, non-tender, non-distended. Active bowel sounds x 4 quadrants. Tolerating diet. - Genitourinary Genitourinary Comment(s): Voiding clear, yellow urine. - Integumentary Integumentary Comment(s): Skin warm and dry with evidence of good perfusion. Right chest tube site covered with dry, intact dressing. - Neurologic Neurologic: Present: CNII-XII intact - Musculoskeletal Musculoskeletal: Present: gait normal, strength equal bilaterally - Psychiatric Psychiatric: Present: A&O x's 3, appropriate affect, intact judgment & insight - Allied health notes Allied health notes reviewed: nursing - Labs CBC & Chem 7: 02/17/19 05:57 02/17/19 05:57 Labs: Abnormal Lab Results - Last 24 Hours (Table) 02/17/19 02/17/19 02/18/19 Range/Units 11:39 16:24 05:34 POC Glucose (mg/dL) 135 H 66 L 107 H (75-99) mg/dL Microbiology - Last 24 Hours (Table) 02/16/19 08:40 Gram Stain - Preliminary Lung - Right Lower Lobe Tissue Culture - Preliminary 02/16/19 08:40 Gram Stain - Preliminary Lung - Right Upper Lobe Tissue Culture - Preliminary 02/16/19 08:40 Gram Stain - Preliminary Lung - Right Tissue Culture - Preliminary - Imaging and Cardiology Chest x-ray: report reviewed, image reviewed Assessment and Plan Assessment: 1. Bilateral pulmonary infiltrates, history of asbestos exposure, s/p right thoracoscopic lung biopsy 2. History of coronary artery disease status post CABG in 2009 with subsequent stents in 2010 3. Hiatal hernia status post mesh repair in 1991 with subsequent recurrence 4. Diet controlled diabetes 5. Hypertension 6. Hypercholesterolemia Plan: 1. Will keep chest tube for another 24 hours. Repeat CXR in the morning. 2. Encourage continued incentive spirometry 10 times every hour while awake. 3. Pain control per current medication regimen. 4. Increase activity, ambulate as tolerated. 5. More recommendations to follow Time with Patient: Greater than 30
[2019-02-18 12:02] LABS: Glucose,Whole Blood 85 mg/dL (75-99)
--- NOTE | 2019-02-18 14:22 | P.PN ---
Subjective Progress Note Date: 02/18/19 This is a 78-year-old male patient who has been followed up in our office regarding interstitial lung disease. The patient has a history of asbestos exposure to the [place]. The patient has developed bilateral pulmonary fibrosis and facility diagnosis was needed to establish a final diagnoses and for that reason the patient was brought in for a wedge biopsy of the lung. For now, the patient is known to have coronary disease and previous bypass surgery in 2009. He has undergone further cardiac intervention and stenting. He is also known to have repair of a previous hiatal hernia back in 1991 and has hypertension and hyperlipidemia. I saw this patient immediately after his surgery. He was doing well. He underwent a right thoracoscopy with biopsy of the right upper and middle and lower lobe where the sample was sent for microbial cultures and pathologic analysis. This was done on the right side. The patient currently is a chest tube in place. There is minimal amount of air leak. No significant bloody output. He postop chest x-ray shows some basilar opacity likely atelectasis and trace pleural effusion. The right-sided chest tube is in place. No evidence of any pneumothorax. On 02/17/2019 patient seen in follow-up in selective care unit, he is resting comfortably in bed, in no acute distress, room air pulse ox is 92%, patient is afebrile, hemodynamically stable, respirations are even and nonlabored, today's chest x-ray has been reviewed, showing some increased density in the right lower lung field, developing right-sided pneumothorax, subcutaneous emphysema, and bibasilar infiltrates. Patient is working on his incentive spirometer. right pleural chest tube remains to water seal with a tiny intermittent air leak. On 02/18/2019, the patient has subclinical minutes emphysema across his right chest area. The chest x-ray still showing small pneumothorax. The patient has episodic air leak from his Pleur-evac. No other complaints otherwise for now. No chest pain. His on room air oxygen. Is ambulating. In fact he is eager to go home. The chest x-ray showed diminishment of the right-sided pneumothorax and there is obvious subcu essentially most was quite extensive and crossing the midline. Objective - Vital Signs Vital signs: Vital Signs Temp 98.0 F 02/18/19 11:12 Pulse 93 02/18/19 11:12 Resp 18 02/18/19 12:00 BP 122/57 02/18/19 11:12 Pulse Ox 92 L 02/18/19 11:12 Intake & Output 02/17/19 02/18/19 02/18/19 18:59 06:59 18:59 Intake Total 480 280 Output Total 25 Balance 455 280 Weight 65.6 kg Intake: Oral 480 280 Output: Chest Tube Drainage 25 Chest Tube Right 25 Other: Voiding Method Toilet Toilet # Voids 1 1 - Exam - Constitutional General appearance: Present: cooperative, no acute distress - Respiratory Details: Lungs sounds diminished bilaterally. Respirations even, nonlabored. Currently on room air with oxygen saturation 93%. Able to achieve 1500 mL on his incentiv e spirometry. Right pleural chest tube to waterseal, no drainage overnight, 90 mL serosanguineous drainage since surgery, air leak present but less than yesterday, subcutaneous emphysema present to right chest wall extending superiorly into the right neck. - Cardiovascular Details: S1, S2 present. Regular rate and rhythm, sinus rhythm on telemetry. Palpable pulses bilaterally. No edema present. No calf pain or tenderness noted. SCDs present. - Gastrointestinal Gastrointestinal Comment(s): Abdomen soft, non-tender, non-distended. Active bowel sounds x 4 quadrants. Tolerating diet. - Genitourinary Genitourinary Comment(s): Voiding clear, yellow urine. - Integumentary Integumentary Comment(s): Skin warm and dry with evidence of good perfusion. Right chest tube site covered with dry, intact dressing. - Neurologic Neurologic: Present: CNII-XII intact - Musculoskeletal Musculoskeletal: Present: gait normal, strength equal bilaterally - Psychiatric Psychiatric: Present: A&O x's 3, appropriate affect, intact judgment & insight - Labs CBC & Chem 7: 02/17/19 05:57 02/17/19 05:57 Labs: Abnormal Lab Results - Last 24 Hours (Table) 02/17/19 02/18/19 Range/Units 16:24 05:34 POC Glucose (mg/dL) 66 L 107 H (75-99) mg/dL Microbiology - Last 24 Hours (Table) 02/16/19 08:40 Anaerobic Culture - Preliminary Lung - Right Lower Lobe 02/16/19 08:40 Anaerobic Culture - Preliminary Lung - Right 02/16/19 08:40 Anaerobic Culture - Preliminary Lung - Right Upper Lobe 02/16/19 08:40 Gram Stain - Preliminary Lung - Right Lower Lobe Tissue Culture - Preliminary 02/16/19 08:40 Gram Stain - Preliminary Lung - Right Upper Lobe Tissue Culture - Preliminary 02/16/19 08:40 Gram Stain - Preliminary Lung - Right Tissue Culture - Preliminary Assessment and Plan Plan: 1 interstitial lung disease, 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 The patient underwent a thoracoscopic assisted wedge biopsy of the r ight lung awaiting final pathologic evaluation and answer. Currently is postop day #2. He is doing well. The right-sided chest tube in place. Right lung has a tiny pneumothorax with persistent air leak which is intermittent for now and the patient has developed substantial emphysema mainly across the right chest extending the midline. The patient's hemodynamically stable. He is on room air oxygen. No signs of any respiratory distress. 2 coronary artery disease with previous bypass surgery in 2009 and previous coronary intervention stenting in 2010 3 diabetes mellitus 4 hypertension 5 hyperlipidemia 6 restless leg syndrome syndrome 7 history of hiatal hernia and has been surgically fixed Plan Doing well. No complaints. Continue pain control with Toradol and Ultram on a when necessary basis. Incentive spirometer. Monitor chest tube output and air leak. Repeat chest x-ray in the morning. DuoNeb nebulized treatments around the clock. We'll continue to follow. He will have another chest x-ray in the morning. Not ready for discharge. The chest she will be kept in place for another 24 hours. She is ambulating.
[2019-02-18 17:04] LABS: Glucose,Whole Blood 108 mg/dL (75-99)
[2019-02-18 20:53] LABS: Glucose,Whole Blood 132 mg/dL (75-99)
[2019-02-18] MEDS: ATORVASTATIN 80 MG TAB PO SCH (22:05)
[2019-02-18] MEDS: ASPIRIN 81 MG PO SCH (22:05)
[2019-02-19] MEDS: KETOROLAC 30 MG/ML 1 ML VIAL IVP SCH ×2 (06:10→11:17)
[2019-02-19 06:11] LABS: Glucose,Whole Blood 106 mg/dL (75-99)
[2019-02-19] MEDS: IPRATROPIUM-ALBUTEROL 3 ML NEB IH SCH ×2 (07:22→11:20)
[2019-02-19] MEDS: HEPARIN SODIUM,PORCINE 5,000 UNIT/ML 1 ML VIAL SQ SCH (08:28)
[2019-02-19] MEDS: PANTOPRAZOLE 40 MG TABLET PO SCH (08:29)
[2019-02-19 08:30] VITALS: RESP 18
[2019-02-19] MEDS: traMADol 50 MG TAB PO SCH ×2 (08:30→11:18)
[2019-02-19] MEDS: METOPROLOL SUCCINATE (ER) 25 MG TAB.ER.24H PO SCH (08:31)
[2019-02-19] MEDS: MULTIVITAMINS, THERA 1 EACH TAB PO SCH (08:31)
[2019-02-19] MEDS: CLOPIDOGREL 75 MG TAB PO SCH (08:31)
--- NOTE | 2019-02-19 08:34 | P.PN ---
Subjective Progress Note Date: 02/19/19 Principal diagnosis: Bilateral pulmonary infiltrates, history of asbestos exposure. Previous medical history of coronary artery disease status post CABG in [address] ents in 2010, hiatal hernia status post mesh repair in 1991 with subsequent recurrence, diet controlled diabetes, hypertension, hypercholesterolemia. POD #3 right thoracoscopic lung biopsy Continued air leak from chest tube, expected outcome from this type of surgery The patient is currently sitting up in bed in no acute distress on the cardiac stepdown unit. He states pain is controlled with current medication regimen, denies shortness of breath. Right pleural chest tube remains to waterseal, no air leak present. Patient has been ambulatory without any difficulty. He is working diligently on his incentive spirometer. Objective - Vital Signs Vital signs: Vital Signs Temp 97.5 F L 02/19/19 04:40 Pulse 86 02/19/19 07:34 Resp 20 02/19/19 07:17 BP 131/66 02/19/19 04:40 Pulse Ox 92 L 02/19/19 04:40 Intake & Output 02/18/19 02/19/19 02/19/19 18:59 06:59 18:59 Intake Total 510 Balance 510 Weight 106 kg Intake: Oral 510 Other: # Voids 2 - Constitutional General appearance: Present: cooperative, no acute distress - Respiratory Details: Lungs sounds diminished bilaterally. Respirations even, nonlabored. Currently on room air with oxygen saturation 92%. Able to achieve 1500 mL on his incentive spirometry. Right pleural chest tube to waterseal, no drainage overni ght, 60 mL serosanguineous drainage in the last 24 hours, no air leak present, subcutaneous emphysema present to right chest wall extending superiorly into the right neck, decreased from yesterday. - Cardiovascular Details: S1, S2 present. Regular rate and rhythm, sinus rhythm on telemetry. Palpable pulses bilaterally. No edema present. No calf pain or tenderness noted. SCDs present. - Gastrointestinal Gastrointestinal Comment(s): Abdomen soft, non-tender, non-distended. Active bowel sounds x 4 quadrants. Tolerating diet. - Genitourinary Genitourinary Comment(s): Voiding clear, yellow urine. - Integumentary Integumentary Comment(s): Skin warm and dry with evidence of good perfusion. Right chest tube site covered with dry, intact dressing. - Neurologic Neurologic: Present: CNII-XII intact - Musculoskeletal Musculoskeletal: Present: gait normal, strength equal bilaterally - Psychiatric Psychiatric: Present: A&O x's 3, appropriate affect, intact judgment & insight - Allied health notes Allied health notes reviewed: nursing - Labs CBC & Chem 7: 02/17/19 05:57 02/17/19 05:57 Labs: Abnormal Lab Results - Last 24 Hours (Table) 02/18/19 02/18/19 02/19/19 Range/Units 16:52 20:51 06:06 POC Glucose (mg/dL) 108 H 132 H 106 H (75-99) mg/dL Microbiology - Last 24 Hours (Table) 02/16/19 08:40 Anaerobic Culture - Preliminary Lung - Right Lower Lobe 02/16/19 08:40 Anaerobic Culture - Preliminary Lung - Right 02/16/19 08:40 Anaerobic Culture - Preliminary Lung - Right Upper Lobe 02/16/19 08:40 Gram Stain - Preliminary Lung - Right Lower Lobe Tissue Culture - Preliminary 02/16/19 08:40 Gram Stain - Preliminary Lung - Right Upper Lobe Tissue Culture - Preliminary 02/16/19 08:40 Gram Stain - Preliminary Lung - Right Tissue Culture - Preliminary - Imaging and Cardiology Chest x-ray: image reviewed Assessment and Plan Assessment: 1. Bilateral pulmonary infiltrates, history of asbestos exposure, s/p right thoracoscopic lung biopsy 2. History of coronary artery disease status post CABG in 2009 with subsequent stents in 2010 3. Hiatal hernia status post mesh repair in 1991 with subsequent recurrence 4. Diet controlled diabetes 5. Hypertension 6. Hypercholesterolemia Plan: 1. Will clamp chest tube for 2 hours, if no air leak when clamp released will discontinue chest tube. If air leak still present will disconnect atrium and attached Pneumostat. 2. Encourage continued incentive spirometry 10 times every hour while awake. 3. Pain control per current medication regimen. 4. Increase activity, ambulate as tolerated. 5. Will discharge later this afternoon with either no chest tube, or chest tube connected to Pneumostat. If the patient is discharged with Pneumostat will give extensive teaching regarding care for the Pneumostat. 6. Patient has follow-up appointment with Dr. Gonzalez, Dr. Morelos, and his primary care physician already scheduled. 7. More recommendations to follow Time with Patient: Greater than 30
--- NOTE | 2019-02-19 08:36 | XR ---
EXAMINATION TYPE: XR chest 2V DATE OF EXAM: 02/19/2019 COMPARISON: Prior chest x-ray 02/18/2019 HISTORY: Chest tube TECHNIQUE: Frontal and lateral views of the chest are obtained. FINDINGS: Right-sided chest tube remains in place. There is extensive subcutaneous emphysema. This m ay obscure underlying detail. No sizable pneumothorax. Patient is post median sternotomy. Heart remai ns enlarged. Minimal patchy basilar density is noted. There are overlying cardiac leads. There is a s izable hiatal hernia. IMPRESSION: No sizable pneumothorax.
[2019-02-19 11:33] VITALS: BP 124/58; PULSE 68; TEMP 97.4
[2019-02-19 11:53] LABS: Glucose,Whole Blood 90 mg/dL (75-99)
--- NOTE | 2019-02-19 12:18 | XR ---
EXAMINATION TYPE: XR chest 2V DATE OF EXAM: 02/19/2019 COMPARISON: 02/19/2019 earlier exam INDICATION: Post chest tube removal TECHNIQUE: Frontal and lateral views of the chest are obtained. FINDINGS: There is extensive subcutaneous emphysema. The right-sided chest tube is been removed. The heart size is normal. The pulmonary vasculature is normal. Mild infiltrate may be within the right mid and lower lung field. More focal nodularity within the ri ght midlung. No pneumothorax is evident. IMPRESSION: 1. Mild infiltrate at the right base. 2. Extensive subcutaneous emphysema. 3. No significant pneumothorax post chest tube. 4. Continued follow-up is recommended
--- NOTE | 2019-02-19 12:21 | P.DS ---
Providers Date of admission: 02/16/19 05:56 Expected date of discharge: 02/19/19 Attending physician: Juan David Gonzalez Consults: 02/16/19 11:33 Consult Physician Routine Consulting Provider: Erasmo Hall Consult Reason/Comments: post beth mccabe patient Do you want consulting provider notified?: Yes Primary care physician: [facility] Course: FINAL DIAGNOSIS: 1. Bilateral pulmonary infiltrates, history of asbestos exposure 2. History of coronary artery disease status post CABG in 2009 with subsequent stents in 2010 3. Hiatal hernia status post mesh repair in 1991 with subsequent recurrence 4. Diet-controlled diabetes 5. Hypertension 6. Hypercholesterolemia 7. Continued air leak from chest tube PRINCIPAL PROCEDURE: 1. Right thoracoscopic lung biopsy HISTORY OF PRESENT ILLNESS: This is a 78-year-old gentleman who follows on an outpatient basis with Dr. Gann and Dr. Morelos. He was exposed to as best as well in the [employer] and recently has developed increasing shortness of breath and fatigue. Chest x-ray demonstrated interstitial change consistent with fibrosis, and computed tomography scan of the chest was read as showing lung markings consistent with early pulmonary fibrosis, a large hiatal hernia, and mildly prominent lymph nodes in the paratracheal region. The patient was referred to Dr. Gonzalez from cardiothoracic surgery. He was recommended to undergo thoracoscopic lung biopsy. The usual perioperative course was discussed in detail with the patient, all risks and benefits were explained, all questions were answered, and consent was obtained to proceed with surgery. The patient was scheduled for surgery at the earliest possible date. HOSPITAL COURSE: The patient was brought to the hospital on 02/16/2019, taken to the preoperative area, prepared in the usual fashion, and subsequently taken to the operating room where Dr. Gonzalez performed a right thoracoscopic lung biopsy. The right side was the preferential approach secondary to previous coronary bypass surgery and previous hiatal hernia surgery. Upon completion of surgery the patient was extubated and admitted to [address] [place] [address] cardiac stepdown unit where he was recovered and monitored hemodynamically. During his recovery he did experience continued air leak from his chest tube and it was maintained to waterseal. On postop day #3 there was no air leak present, chest x-ray was stable, and his right pleural chest tube was discontinued without incident. Repeat follow-up chest x-ray was stable. His oxygen was titrated down, he was tolerating oral diet, his pain was controlled, and he was ready to be discharged to home on postoperative day #3. He received written and verbal instruction regarding his medications, activity restrictions, signs and symptoms requiring physician notification, and follow-up appointments. COMPLICATIONS: The patient experienced postoperative continuous air leak which resolved. Patient Condition at Discharge: Stable Plan - Discharge Summary Discharge Rx Participant: Yes New Discharge Prescriptions: New Acetaminophen Tab [Tylenol] 1,000 mg PO Q6HR PRN tab PRN Reason: Fever And/ Or Pain Continue Omeprazole 20 mg PO DAILY Atorvastatin [Lipitor] 80 mg PO HS Aspirin 81 mg PO HS Metoprolol Succinate [Toprol XL] 25 mg PO DAILY Multivitamins, Thera [Multivitamin (formulary)] 1 tab PO DAILY Clopidogrel [Plavix] 75 mg PO DAILY Naproxen Sodium [Aleve] 220 mg PO BID PRN PRN Reason: Pain Glucosamine-Chondr 500-400Mg 1 tab PO BID [place]-3 Fatty Acids/Fish Oil [Fish Oil 1,000 mg Softgel] 1 cap PO BID Discharge Medication List Aspirin 81 mg PO HS 05/23/15 [History] Atorvastatin [Lipitor] 80 mg PO HS 05/23/15 [History] Metoprolol Succinate [Toprol XL] 25 mg PO DAILY 05/23/15 [History] Omeprazole 20 mg PO DAILY 05/23/15 [History] Clopidogrel [Plavix] 75 mg PO DAILY 02/14/19 [History] Glucosamine-Chondr 500-400Mg 1 tab PO BID 02/14/19 [History] Multivitamins, Thera [Multivitamin (formulary)] 1 tab PO DAILY 02/14/19 [History] Naproxen Sodium [Aleve] 220 mg PO BID PRN 02/14/19 [History] [place]-3 Fatty Acids/Fish Oil [Fish Oil 1,000 mg Softgel] 1 cap PO BID 02/14/19 [History] Acetaminophen Tab [Tylenol] 1,000 mg PO Q6HR PRN tab 02/17/19 [Rx] Follow up Appointment(s)/Referral(s): Kevin Gann MD [STAFF PHYSICIAN] - 02/23/19 2:15 pm () Juan David Gonzalez MD [STAFF PHYSICIAN] - 03/02/19 1:45 pm Jose Morelos DO [Doctor of Osteopathic Medicine] - 03/06/19 9:00 am Activity/Diet/Wound Care/Special Instructions: DISCHARGE INSTRUCTIONS: 1. No driving for 2 weeks, or until physician gives their ok. 2. No lifting, pushing, or pulling more than 10 pounds for 2 weeks. The physician will advise of any restriction changes. 3. Continue pain control per as needed orders. Alternate acetaminophen (Tylenol) and ibuprofen (Motrin/Advil) for pain. 4. Continue with incentive spirometry and splinting until otherwise directed by the physician. 5. Leave chest tube dressing for 48 hours. After that, remove all dressings and shower daily. 6. Routine incision care. No powders, lotions, ointments on incisions. 7. Please call surgeon/[employer]K [employer]ODUCT LIABILITY DIRECTOR for temp greater than 101 F or purulent drainage from incisions. Discharge Disposition: HOME SELF-CARE
--- NOTE | 2019-02-19 12:52 | P.PN ---
Subjective Progress Note Date: 02/19/19 This is a 78-year-old male patient who has been followed up in our office regarding interstitial lung disease. The patient has a history of asbestos exposure to the [place]. The patient has developed bilateral pulmonary fibrosis and facility diagnosis was needed to establish a final diagnoses and for that reason the patient was brought in for a wedge biopsy of the lung. For now, the patient is known to have coronary disease and previous bypass surgery in 2009. He has undergone further cardiac intervention and stenting. He is also known to have repair of a previous hiatal hernia back in 1991 and has hypertension and hyperlipidemia. I saw this patient immediately after his surgery. He was doing well. He underwent a right thoracoscopy with biopsy of the right upper and middle and lower lobe where the sample was sent for microbial cultures and pathologic analysis. This was done on the right side. The patient currently is a chest tube in place. There is minimal amount of air leak. No significant bloody output. He postop chest x-ray shows some basilar opacity likely atelectasis and trace pleural effusion. The right-sided chest tube is in place. No evidence of any pneumothorax. On 02/17/2019 patient seen in follow-up in selective care unit, he is resting comfortably in bed, in no acute distress, room air pulse ox is 92%, patient is afebrile, hemodynamically stable, respirations are even and nonlabored, today's chest x-ray has been reviewed, showing some increased density in the right lower lung field, developing right-sided pneumothorax, subcutaneous emphysema, and bibasilar infiltrates. Patient is working on his incentive spirometer. right pleural chest tube remains to water seal with a tiny intermittent air leak. On 02/18/2019, the patient has subclinical minutes emphysema across his right chest area. The chest x-ray still showing small pneumothorax. The patient has episodic air leak from his Pleur-evac. No other complaints otherwise for now. No chest pain. His on room air oxygen. Is ambulating. In fact he is eager to go home. The chest x-ray showed diminishment of the right-sided pneumothorax and there is obvious subcu essentially most was quite extensive and crossing the midline. on 02/19/2019, the patient is postop day #3 following his thoracoscopic lung biopsy. No significant air leak on today's evaluation a chest x-ray shows subcu insulin for edema in the right lung is well expanded. The right-sided chest tube was on waterseal. Based on that, the surgery team decided to remove the chest tube and a follow-up chest x-rays to follow. He is ambulating. Pulse ox is 92% on room air. No respiratory issues. On examination the patient has some subcutaneous emphysema over the anterior chest area. Objective - Vital Signs Vital signs: Vital Signs Temp 97.4 F L 02/19/19 11:31 Pulse 68 02/19/19 11:31 Resp 18 02/19/19 11:31 BP 124/58 02/19/19 11:31 Pulse Ox 93 L 02/19/19 11:31 Intake & Output 02/18/19 02/19/19 02/19/19 18:59 06:59 18:59 Intake Total 510 230 Balance 510 230 Weight 106 kg Intake: Oral 510 230 Other: # Voids 2 - Exam - Constitutional General appearance: Present: cooperative, no acute distress - Respiratory Details: Lungs sounds diminished bilaterally. Respirations even, nonlabored. Currently on room air with oxygen saturation 93%. Able to achieve 1500 mL on his incen tive spirometry. Right pleural chest tube is removed. - Cardiovascular Details: S1, S2 present. Regular rate and rhythm, sinus rhythm on telemetry. Palpable pulses bilaterally. No edema present. No calf pain or tenderness noted. SCDs present. - Gastrointestinal Gastrointestinal Comment(s): Abdomen soft, non-tender, non-distended. Active bowel sounds x 4 quadrants. Tolerating diet. - Genitourinary Genitourinary Comment(s): Voiding clear, yellow urine. - Integumentary Integumentary Comment(s): Skin warm and dry with evidence of good perfusion. Right chest tube site covered with dry, intact dressing. - Neurologic Neurologic: Present: CNII-XII intact - Musculoskeletal Musculoskeletal: Present: gait normal, strength equal bilaterally - Psychiatric Psychiatric: Present: A&O x's 3, appropriate affect, intact judgment & insight - Labs CBC & Chem 7: 02/17/19 05:57 02/17/19 05:57 Labs: Abnormal Lab Results - Last 24 Hours (Table) 02/18/19 02/18/19 02/19/19 Range/Units 16:52 20:51 06:06 POC Glucose (mg/dL) 108 H 132 H 106 H (75-99) mg/dL Microbiology - Last 24 Hours (Table) 02/16/19 08:40 Gram Stain - Preliminary Lung - Right Lower Lobe Tissue Culture - Preliminary 02/16/19 08:40 Gram Stain - Preliminary Lung - Right Upper Lobe Tissue Culture - Preliminary 02/16/19 08:40 Gram Stain - Preliminary Lung - Right Tissue Culture - Preliminary 02/16/19 08:40 Anaerobic Culture - Preliminary Lung - Right Lower Lobe 02/16/19 08:40 Anaerobic Culture - Preliminary Lung - Right 02/16/19 08:40 Anaerobic Culture - Preliminary Lung - Right Upper Lobe Assessment and Plan Plan: 1 interstitial lung disease, 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 The patient underwent a thoracoscopic assisted wedge biopsy of the right lung awaiting final pathologic evaluation and answer. Currently is postop day #3. The patient has success emphysema. The right-sided chest tube has been removed. No evidence of any pneumothorax and today's chest x-ray. Awaiting a follow-up chest x-ray prior to him being discharged home. 2 coronary artery disease with previous bypass surgery in 2009 and previous coronary intervention stenting in 2010 3 diabetes mellitus 4 hypertension 5 hyperlipidemia 6 restless leg syndrome syndrome 7 history of hiatal hernia and has been surgically fixed Plan Doing well. No complaints. Continue pain control with Toradol and Ultram on a when necessary basis. Incentive spirometer. possible discharge today after repeat chest x-ray post tube insertion showed no evidence of any pneumothorax. Follow up on outpatient basis.
== END 2019-02-19 14:38 | disposition home or self-care (01) | DRG 167 ==
LOC: 2ORMAIN 05:56 → 3SCARD 09:24
PROVIDERS: ADMIT Thoracic Surgery (Cardiothoracic Vascular Surgery); ATTEND Thoracic Surgery (Cardiothoracic Vascular Surgery)
PROC: 0BBC4ZX Excision of Right Upper Lung Lobe, Percutaneous Endoscopic Approach, Diagnostic (ICD-10-PCS; 2019-02-16)
PROC: 0BBD4ZX Excision of Right Middle Lung Lobe, Percutaneous Endoscopic Approach, Diagnostic (ICD-10-PCS; 2019-02-16)
PROC: 0BBF4ZX Excision of Right Lower Lung Lobe, Percutaneous Endoscopic Approach, Diagnostic (ICD-10-PCS; principal; 2019-02-16 07:30)
DX: J84.10 Pulmonary fibrosis, unspecified (principal); J98.11 Atelectasis; J93.9 Pneumothorax, unspecified; J93.82 Other air leak; J98.2 Interstitial emphysema; E11.9 Type 2 diabetes mellitus without complications; E78.00 Pure hypercholesterolemia, unspecified; E78.5 Hyperlipidemia, unspecified; G25.81 Restless legs syndrome; I10 Essential (primary) hypertension; I25.10 Atherosclerotic heart disease of native coronary artery without angina pectoris; K21.9 Gastro-esophageal reflux disease without esophagitis; M47.9 Spondylosis, unspecified; K44.9 Diaphragmatic hernia without obstruction or gangrene; I73.9 Peripheral vascular disease, unspecified; H53.8 Other visual disturbances; M19.90 Unspecified osteoarthritis, unspecified site; Z77.090 Contact with and (suspected) exposure to asbestos; Z79.02 Long term (current) use of antithrombotics/antiplatelets; Z79.82 Long term (current) use of aspirin; Z79.899 Other long term (current) drug therapy; Z95.1 Presence of aortocoronary bypass graft; Z95.5 Presence of coronary angioplasty implant and graft; Z88.8 Allergy status to other drugs, medicaments and biological substances; Z86.718 Personal history of other venous thrombosis and embolism; Z82.49 Family history of ischemic heart disease and other diseases of the circulatory system
CPT/HCPCS: 71045; 71046; 80048; 85025; 87070; 87075; 87102; 87116; 87205; 87206; 88307; 94640; 94760

== ENCOUNTER 2019-03-11 15:37 | Inpatient (IN) | payer OTHER ==
[2019-03-11] MEDS ORDERED: SODIUM CHLORIDE 0.9% 1,000 ML IV STA (16:54)
[2019-03-11] MEDS ORDERED: ONDANSETRON 4 MG/2 ML VIAL IVP STA (16:54)
[2019-03-11] MEDS ORDERED: MORPHINE SULFATE 4 MG/ML SYRINGE IV STA (16:54)
[2019-03-11] MEDS ORDERED: PANTOPRAZOLE 40 MG/10 ML VIAL IVP STA (16:54)
[2019-03-11 17:05] LABS: Anisocytosis Slight; Basophils # (A) 0.1 k/uL (0-0.2); Basophils % (A) 1 %; Eosinophils # (A) 0.2 k/uL (0-0.7); Eosinophils % (A) 2 %; HCT 45.7 % (39.0-53.0); HGB 14.7 gm/dL (13.0-17.5); Hypochromasia Slight; Lymphocytes % (A) 26 %; MCH 26.8 pg (25.0-35.0); MCHC 32.2 g/dL (31.0-37.0); MCV 83.1 fL (80.0-100.0); Mean Platelet Volume 7.5; Monocytes # (A) 0.5 k/uL (0-1.0); Monocytes % (A) 7 %; Neutrophils # (A) 4.6 k/uL (1.3-7.7); Neutrophils % (A) 61 %; Platelet Count 314 k/uL (150-450); RBC 5.49 m/uL (4.30-5.90); RDW 16.4 % (11.5-15.5); WBC 7.6 k/uL (3.8-10.6)
[2019-03-11 17:12] LABS: ALT 31 U/L (21-72); AST 42 U/L (17-59); African American GFR (CKD) >90 (>60 ml/min/1.73 sqM); Albumin 4.5 g/dL (3.5-5.0); Alkaline Phosphatase 85 U/L (38-126); Amylase 131 U/L (30-110); Anion Gap 9 mmol/L; Blood Urea Nitrogen 14 mg/dL (9-20); Calcium 9.7 mg/dL (8.4-10.2); Carbon Dioxide 28 mmol/L (22-30); Chloride 100 mmol/L (98-107); Glucose 126 mg/dL (74-99); Lipase 232 U/L (23-300); Potassium 4.7 mmol/L (3.5-5.1); Sodium 137 mmol/L (137-145)
--- NOTE | 2019-03-11 17:53 | ED ---
Abdominal Pain HPI - General Chief Complaint: Abdominal Pain Stated Complaint: Abd.pain Time Seen by Provider: 03/11/19 16:34 Source: patient, RN notes reviewed, old records reviewed Mode of arrival: ambulatory Limitations: no limitations - History of Present Illness Initial Comments: This is a 78-year-old male the ER for evaluation presents today for evaluation of abdominal pain. No prior history of bowel pain no prior history of bowel surgeries. Pain started today he also broke up with diaphoresis denies fever but does have chills. Patient denies any recent travel history no nausea vomiting or diarrhea. Upon arrival to ER patient did begin to have vomiting secondary to pain. Patient is currently admits to swelling feels like pain is to his epigastric and pulmonary MD Complaint: abdominal pain -: hour(s) Location: epigastric Radiation: epigastric, back Migration to: no migration Severity: moderate Severity scale (1-10): 5 Quality: stabbing, aching Consistency: constant Improves With: nothing Worsens With: nothing Associated Symptoms: nausea, vomiting - Related Data Home Medications Medication Instructions Recorded Confirmed Aspirin 81 mg PO HS 05/23/15 03/11/19 Atorvastatin [Lipitor] 80 mg PO HS 05/23/15 03/11/19 Metoprolol Succinate [Toprol XL] 25 mg PO DAILY 05/23/15 03/11/19 Omeprazole 20 mg PO DAILY 05/23/15 03/11/19 Clopidogrel [Plavix] 75 mg PO DAILY 02/14/19 03/11/19 Glucosamine-Chondr 500-400Mg 1 tab PO BID 02/14/19 03/11/19 Multivitamins, Thera [Multivitamin 1 tab PO DAILY 02/14/19 03/11/19 (formulary)] Naproxen Sodium [Aleve] 220 mg PO BID PRN 02/14/19 03/11/19 [place]-3 Fatty Acids/Fish Oil [Fish 1 cap PO BID 02/14/19 03/11/19 Oil 1,000 mg Softgel] Previous Rx's Medication Instructions Recorded Acetaminophen Tab [Tylenol] 1,000 mg PO Q6HR PRN tab 02/17/19 Allergies Allergy/AdvReac Type Severity Reaction Status Date / Time heparin AdvReac caused Verified 03/11/19 17:21 blood clotting Review of Systems ROS Statement: Those systems with pertinent positive or pertinent negative responses have been documented in the HPI. ROS Other: All systems not noted in ROS Statement are negative. Past Medical History Past Medical History: Coronary Artery Disease (CAD), Diabetes Mellitus, GERD/Reflux, Hyperlipidemia, Hypertension, Osteoarthritis (OA) Additional Past Medical History / Comment(s): RLS, SOB w/exertion, weight loss, cough started in Dec., diet controlled diabetic, has hiatal hernia History of Any Multi-Drug Resistant Organisms: None Reported Past Surgical History: Coronary Bypass/CABG, Heart Catheterization With Stent, Hernia Repair, Tonsillectomy Additional Past Surgical History / Comment(s): quadruple bypass 2009 Past Anesthesia/Blood Transfusion Reactions: No Reported Reaction Date of Last Stent Placement:: 2010 Past Psychological History: No Psychological Hx Reported Smoking Status: Never smoker Past Alcohol Use History: None Reported Past Drug Use History: None Reported - Past Family History Father Family Medical History: Congestive Heart Failure (CHF) General Exam Limitations: no limitations General appearance: alert, anxious, in distress Head exam: Present: atraumatic, normocephalic, normal inspection Eye exam: Present: normal appearance, PERRL, EOMI. Absent: scleral icterus, conjunctival injection, periorbital swelling ENT exam: Present: normal exam, mucous membranes moist Neck exam: Present: normal inspection. Absent: tenderness, meningismus, lymph adenopathy Respiratory exam: Present: normal lung sounds bilaterally. Absent: respiratory distress, wheezes, rales, rhonchi, stridor Cardiovascular Exam: Present: regular rate, normal rhythm, normal heart sounds. Absent: systolic murmur, diastolic murmur, rubs, gallop, clicks GI/Abdominal exam: Present: soft, tenderness (Epigastric to periumbilical), guarding, normal bowel sounds. Absent: distended, rebound, rigid Extremities exam: Present: normal inspection, full ROM, normal capillary refill. Absent: tenderness, pedal edema, joint swelling, calf tenderness Back exam: Present: normal inspection Neurological exam: Present: alert, oriented X3, CN II-XII intact Psychiatric exam: Present: normal affect, normal mood Skin exam: Present: warm, dry, intact, normal color. Absent: rash Course Vital Signs 03/11/19 15:40 Temperature 98.0 F Pulse Rate 86 Respiratory 18 Rate Blood Pressure 133/74 O2 Sat by Pulse 99 Oximetry - Reevaluation(s) Reevaluation #1: 03/11/19 17:59 Medical records reviewed Reevaluation #2: 03/11/19 17:59 Patient not currently has pain control Reevaluation #3: 03/11/19 19:25 Patient has adequate pain control Medical Decision Making - Medical Decision Making The ER for evaluation. Patient presents today for evaluation regarding abdominal pain severe abdominal pain small bowel structure will admit for surgical evaluation and treatment. is about 1 month out of cart, bypass grafting. We'll consult surgery secondary to recent CT of surgery. Medicine for medical management. NG tube was placed and patient's pain is controlled - Lab Data Result diagrams: 03/11/19 16:35 03/11/19 16:35 Lab Results 03/11/19 03/11/19 03/11/19 Range/Units 16:35 16:35 16:35 WBC 7.6 (3.8-10.6) k/uL RBC 5.49 (4.30-5.90) m/uL Hgb 14.7 (13.0-17.5) gm/dL Hct 45.7 (39.0-53.0) % MCV 83.1 (80.0-100.0) fL MCH 26.8 (25.0-35.0) pg MCHC 32.2 (31.0-37.0) g/dL RDW 16.4 H (11.5-15.5) % Plt Count 314 (150-450) k/uL Neutrophils % 61 % Lymphocytes % 26 % Monocytes % 7 % Eosinophils % 2 % Basophils % 1 % Neutrophils # 4.6 (1.3-7.7) k/uL Lymphocytes # 2.0 (1.0-4.8) k/uL Monocytes # 0.5 (0-1.0) k/uL Eosinophils # 0.2 (0-0.7) k/uL Basophils # 0.1 (0-0.2) k/uL Hypochromasia Slight Anisocytosis Slight Sodium 137 (137-145) mmol/L Potassium 4.7 (3.5-5.1) mmol/L Chloride 100 (98-107) mmol/L Carbon Dioxide 28 (22-30) mmol/L Anion Gap 9 mmol/L BUN 14 (9-20) mg/dL Creatinine 0.85 (0.66-1.25) mg/dL Est GFR (CKD-EPI)AfAm >90 (>60 ml/min/1.73 sqM) Est GFR (CKD-EPI)NonAf 85 (>60 ml/min/1.73 sqM) Glucose 126 H (74-99) mg/dL Plasma Lactic Acid Vladimir 1.0 (0.7-2.0) mmol/L Calcium 9.7 (8.4-10.2) mg/dL Total Bilirubin 1.0 (0.2-1.3) mg/dL AST 42 (17-59) U/L ALT 31 (21-72) U/L Alkaline Phosphatase 85 (38-126) U/L Troponin I (0.000-0.034) ng/mL Total Protein 8.0 (6.3-8.2) g/dL Albumin 4.5 (3.5-5.0) g/dL Amylase 131 H (30-110) U/L Lipase 232 (23-300) U/L 03/11/19 Range/Units 16:35 WBC (3.8-10.6) k/uL RBC (4.30-5.90) m/uL Hgb (13.0-17.5) gm/dL Hct (39.0-53.0) % MCV (80.0-100.0) fL MCH (25.0-35.0) pg MCHC (31.0-37.0) g/dL RDW (11.5-15.5) % Plt Count (150-450) k/uL Neutrophils % % Lymphocytes % % Monocytes % % Eosinophils % % Basophils % % Neutrophils # (1.3-7.7) k/uL Lymphocytes # (1.0-4.8) k/uL Monocytes # (0-1.0) k/uL Eosinophils # (0-0.7) k/uL Basophils # (0-0.2) k/uL Hypochromasia Anisocytosis Sodium (137-145) mmol/L Potassium (3.5-5.1) mmol/L Chloride (98-107) mmol/L Carbon Dioxide (22-30) mmol/L Anion Gap mmol/L BUN (9-20) mg/dL Creatinine (0.66-1.25) mg/dL Est GFR (CKD-EPI)AfAm (>60 ml/min/1.73 sqM) Est GFR (CKD-EPI)NonAf (>60 ml/min/1.73 sqM) Glucose (74-99) mg/dL Plasma Lactic Acid Vladimir (0.7-2.0) mmol/L Calcium (8.4-10.2) mg/dL Total Bilirubin (0.2-1.3) mg/dL AST (17-59) U/L ALT (21-72) U/L Alkaline Phosphatase (38-126) U/L Troponin I <0.012 (0.000-0.034) ng/mL Total Protein (6.3-8.2) g/dL Albumin (3.5-5.0) g/dL Amylase (30-110) U/L Lipase (23-300) U/L - EKG Data -: EKG Interpreted by Me (EKG shows sinus rhythm rate of 69, NC 226, QRS 80, QTC 437) - Radiology Data Radiology results: report reviewed (CT head and pelvis is positive for significant small bowel obstruction), image reviewed Disposition Clinical Impression: Small bowel obstruction, Abdominal pain Disposition: ADMITTED IP TO THIS HOSP Condition: Fair Is patient prescribed a controlled substance at d/c from ED?: No Referrals: Kevin Gann MD [Primary Care Provider] - 1-2 days
[2019-03-11] MEDS ORDERED: MORPHINE SULFATE 4 MG/ML SYRINGE IVP STA (18:35)
--- NOTE | 2019-03-11 18:44 | CT ---
EXAMINATION TYPE: CT abdomen pelvis w con DATE OF EXAM: 03/11/2019 COMPARISON: NONE HISTORY: 78-year-old male with generalized abdominal pain. TECHNIQUE: Contiguous axial scanning of the abdomen and pelvis following administration of 100 ml Iso yarely 300 IV contrast. Delayed images through the kidneys and coronal/sagittal reconstructions perform ed. CT DLP: 655.4 mGycm Automated exposure control for dose reduction was used. FINDINGS: Heart mildly enlarged without pericardial effusion. Median sternotomy wires. Mild bibasilar bronchiec tasis with reticular changes. No pleural effusion. Moderate to large hiatal hernia containing approximately half the stomach. There is prominent fluid d istending the stomach. Proximal jejunum and distal ileum is collapsed. Mid small bowel loops show dil atation up to 3.2 cm with air-fluid levels. There are 2 areas of beaked tapering of small bowel and t ransition points and pulling of the mesentery, refer to coronal images 42 and 43. Associated mesenter ic edema in the anterior left mid abdomen, axial image 47. No pneumatosis or free air is identified. No portal venous gas. However, there is prominent subcutaneous emphysema along the right anterolateral abdomen uncertain et iology. No mesenteric or retroperitoneal lymphadenopathy. Moderate atherosclerotic calcifications abdominal aorta. An IVC filter is present. Moderate pelvic free fluid. Bladder is urine distended. Some ascites fluid extends into bilateral ing uinal canals. No pelvic lymphadenopathy. Bones: Mild degenerative changes at the hips. Facet arthropathy lower lumbar spine with grade 1 anter olisthesis L4-L5. Moderate to advanced degenerative disc disease L5-S1. IMPRESSION: 1. FINDINGS HIGHLY SUGGESTIVE OF A CLOSED LOOP OBSTRUCTION INVOLVING THE MID SMALL BOWEL POSSIBLY SEC ONDARY TO INTERNAL HERNIA OR ADHESIONS. MID SMALL BOWEL CONTAINS AIR-FLUID LEVELS, IS DILATED UP TO 3 .2 CM, AND DEMONSTRATES 2 TRANSITION POINTS. 2. MODERATE PELVIC FREE FLUID AND LOCALIZED MESENTERIC EDEMA LIKELY REACTIVE. NO EVIDENCE FOR FREE AI R OR PNEUMATOSIS AT THIS TIME. 3. MODERATE TO LARGE HIATAL HERNIA CONTAINING HALF THE STOMACH. PROMINENT FLUID WITHIN THE STOMACH. C ORRELATE FOR RECENT LIQUID INGESTION. 4. CORRELATE TO THE CAUSE OF PROMINENT SUBCUTANEOUS EMPHYSEMA ALONG THE RIGHT ANTEROLATERAL ABDOME N.
[2019-03-11] MEDS ORDERED: SODIUM CHLORIDE 0.9% 1,000 ML IV ONE (19:22)
[2019-03-11] MEDS: ONDANSETRON 4 MG/2 ML VIAL IVP PRN (20:59)
[2019-03-11] MEDS: MORPHINE SULFATE 4 MG/ML SYRINGE IVP PRN (21:05)
--- NOTE | 2019-03-11 21:48 | P.GSHP ---
History of Present Illness H&P Date: 03/11/19 Chief Complaint: Small bowel obstruction Patient presents to the ER with complaints of pain that began this morning. Pain is mid abdominal. He has had episodes of dry heaves. History of known hiatal hernia. Underwent a recent right thoracoscopy. Biopsies from wedge rese ction benign. No similar events in the past. He does have a lower midline incision although does not recall what that was from. States he has had bilateral inguinal hernias repaired. Underwent CAT scan which showed findings suspicious for closed loop obstruction. Amylase slightly elevated. White blood cell count normal. Lactic acid normal. Hemodynamically stable. Nasogastric tube ordered but apparently not placed yet. Patient is on Plavix. - Review of Systems Comment: The patient denies any acute changes in vision or hearing, no dysphagia or o dynophagia, no chest pain or shortness of breath, no dysuria or hematuria, no headache, no runny nose, no rectal bleeding or melena, no unexplained weight loss Past Medical History Past Medical History: Coronary Artery Disease (CAD), Diabetes Mellitus, GERD/R eflux, Hyperlipidemia, Hypertension, Osteoarthritis (OA) Additional Past Medical History / Comment(s): RLS, SOB w/exertion, weight loss, cough started in Aug., diet controlled diabetic, has hiatal hernia History of Any Multi-Drug Resistant Organisms: None Reported Past Surgical History: Coronary Bypass/CABG, Heart Catheterization With Stent, Hernia Repair, Tonsillectomy Additional Past Surgical History / Comment(s): quadruple bypass 2009 Past Anesthesia/Blood Transfusion Reactions: No Reported Reaction Date of Last Stent Placement:: 2010 Past Psychological History: No Psychological Hx Reported Smoking Status: Never smoker Past Alcohol Use History: None Reported Past Drug Use History: None Reported - Past Family History Father Family Medical History: Congestive Heart Failure (CHF) Medications and Allergies Home Medications Medication Instructions Recorded Confirmed Type Aspirin 81 mg PO HS 05/23/15 03/11/19 History Atorvastatin [Lipitor] 80 mg PO HS 05/23/15 03/11/19 History Metoprolol Succinate [Toprol XL] 25 mg PO DAILY 05/23/15 03/11/19 History Omeprazole 20 mg PO DAILY 05/23/15 03/11/19 History Clopidogrel [Plavix] 75 mg PO DAILY 02/14/19 03/11/19 History Glucosamine-Chondr 500-400Mg 1 tab PO BID 02/14/19 03/11/19 History Multivitamins, Thera [Multivitamin 1 tab PO DAILY 02/14/19 03/11/19 History (formulary)] Naproxen Sodium [Aleve] 220 mg PO BID PRN 02/14/19 03/11/19 History [place]-3 Fatty Acids/Fish Oil [Fish 1 cap PO BID 02/14/19 03/11/19 History Oil 1,000 mg Softgel] Acetaminophen Tab [Tylenol] 1,000 mg PO Q6HR PRN tab 02/17/19 03/11/19 Rx Allergies Allergy/AdvReac Type Severity Reaction Status Date / Time heparin AdvReac caused Verified 03/11/19 17:21 blood clotting Surgical - Exam Vital Signs Temp Pulse Resp BP Pulse Ox 98.0 F 86 18 133/74 99 03/11/19 15:40 03/11/19 15:40 03/11/19 15:40 03/11/19 15:40 03/11/19 15:40 Physical exam: General: Well-developed, well-nourished HEENT: Normocephalic, sclerae nonicteric Abdomen: Mid abdominal tenderness, no rebound or guarding, minimally distended Extremities: No edema Neuro: Alert and oriented Results - Labs 03/11/19 16:35 03/11/19 16:35 Abnormal Lab Results - Last 24 Hours (Table) 03/11/19 03/11/19 Range/Units 16:35 16:35 RDW 16.4 H (11.5-15.5) % Glucose 126 H (74-99) mg/dL Amylase 131 H (30-110) U/L Diabetes panel 03/11/19 Range/Units 16:35 Sodium 137 (137-145) mmol/L Potassium 4.7 (3.5-5.1) mmol/L Chloride 100 (98-107) mmol/L Carbon Dioxide 28 (22-30) mmol/L BUN 14 (9-20) mg/dL Creatinine 0.85 (0.66-1.25) mg/dL Glucose 126 H (74-99) mg/dL Calcium 9.7 (8.4-10.2) mg/dL AST 42 (17-59) U/L ALT 31 (21-72) U/L Alkaline Phosphatase 85 (38-126) U/L Total Protein 8.0 (6.3-8.2) g/dL Albumin 4.5 (3.5-5.0) g/dL Calcium panel 03/11/19 Range/Units 16:35 Calcium 9.7 (8.4-10.2) mg/dL Albumin 4.5 (3.5-5.0) g/dL Pituitary panel 03/11/19 Range/Units 16:35 Sodium 137 (137-145) mmol/L Potassium 4.7 (3.5-5.1) mmol/L Chloride 100 (98-107) mmol/L Carbon Dioxide 28 (22-30) mmol/L BUN 14 (9-20) mg/dL Creatinine 0.85 (0.66-1.25) mg/dL Glucose 126 H (74-99) mg/dL Calcium 9.7 (8.4-10.2) mg/dL Adrenal panel 03/11/19 Range/Units 16:35 Sodium 137 (137-145) mmol/L Potassium 4.7 (3.5-5.1) mmol/L Chloride 100 (98-107) mmol/L Carbon Dioxide 28 (22-30) mmol/L BUN 14 (9-20) mg/dL Creatinine 0.85 (0.66-1.25) mg/dL Glucose 126 H (74-99) mg/dL Calcium 9.7 (8.4-10.2) mg/dL Total Bilirubin 1.0 (0.2-1.3) mg/dL AST 42 (17-59) U/L ALT 31 (21-72) U/L Alkaline Phosphatase 85 (38-126) U/L Total Protein 8.0 (6.3-8.2) g/dL Albumin 4.5 (3.5-5.0) g/dL Assessment and Plan (1) Small bowel obstruction Narrative/Plan: 78-year-old male admitted for abdominal pain with CAT scan findings showing small bowel obstruction. Signs on CAT scan suspicious for possible closed loop obstruction. Clinical scenario discussed in detail with the patient. Advise exploratory laparotomy given the appearance. Will place nasogastric tube at this time and start IV antibiotics. Risks of bleeding, infection, possible need for bowel resection, leak, abscess, hernia, recurrent obstruction, respiratory and cardiac complications reviewed. He understands and wishes to proceed. Current Visit: Yes Status: Acute Code(s): K56.609 - UNSP INTESTNL OBST, UNSP TO PARTIAL VERSUS COMPLETE OBST SNOMED Code(s): 078106475
--- NOTE | 2019-03-11 22:46 | XR ---
EXAM: XR Abdomen 2 Views With XR Chest CLINICAL HISTORY: NG tube placement TECHNIQUE: Frontal view of the chest, frontal view of the abdomen/pelvis and upright or decubitus view of the abdomen. COMPARISON: Chest x-ray dated 02/19/2019 FINDINGS: Lungs: Diffuse airspace opacities which may represent mild perivascular congestion versus an infectious process. Pleural space: Unremarkable. No pneumothorax. Heart: Unremarkable. No cardiomegaly. Mediastinum: Unremarkable. Intraperitoneal space: No free air. Gastrointestinal tract: Unremarkable. No dilation. Organs: Contrast is noted within the urinary bladder. Bones/joints: Gender change in the osseous structures. Evidence of prior median sternotomy. Vasculature: IVC filter is noted. Tubes, lines and devices: Enteric tube is seen with tip in the gastric body. IMPRESSION: 1. Enteric tube is seen with tip in the gastric body. 2. Diffuse airspace opacities which may represent mild perivascular congestion versus an infectious process.
--- NOTE | 2019-03-11 22:50 | XR ---
EXAM: XR Abdomen, 2 Views CLINICAL HISTORY: NG tube placement TECHNIQUE: Frontal view of the abdomen/pelvis with upright view of the abdomen. COMPARISON: No relevant prior studies available. FINDINGS: Intraperitoneal space: No free air. Gastrointestinal tract: Unremarkable. No dilation. Organs: Contrasted noted within the urinary bladder. Bones/joints: Degenerative changes of the spine. Vasculature: IVC filter is noted. Tubes, lines and devices: Enteric tube with tip in the gastric body. IMPRESSION: Enteric tube with tip in the gastric body.
[2019-03-12 00:09] VITALS: BMI 22.6
[2019-03-12] MEDS: MORPHINE SULFATE 4 MG/ML SYRINGE IVP PRN ×5 (00:32→23:28)
[2019-03-12] MEDS: PIPERACILLIN-TAZOBACTAM 3.375 GM in SODIUM CHLORIDE 0.9% 100 ML IVPB SCH ×4 (00:32→23:26)
[2019-03-12] MEDS: ONDANSETRON 4 MG/2 ML VIAL IVP PRN (04:42)
[2019-03-12] MEDS ORDERED: SODIUM CHLORIDE 0.9% 500 ML 500 ML IV ONE ×2 (05:49→12:07)
[2019-03-12 07:10] LABS: Glucose,Whole Blood 165 mg/dL (75-99)
[2019-03-12 07:34] LABS: Basophils % (A) 0 %; Eosinophils % (A) 0 %; HCT 48.3 % (39.0-53.0); HGB 14.9 gm/dL (13.0-17.5); Hypochromasia Slight; Lymphocytes # (A) 0.9 k/uL (1.0-4.8); Lymphocytes % (A) 6 %; MCH 26.4 pg (25.0-35.0); MCHC 30.9 g/dL (31.0-37.0); MCV 85.6 fL (80.0-100.0); Monocytes # (A) 0.6 k/uL (0-1.0); Monocytes % (A) 4 %; Neutrophils # (A) 12.6 k/uL (1.3-7.7); Neutrophils % (A) 89 %; Platelet Count 345 k/uL (150-450); RBC 5.65 m/uL (4.30-5.90); RDW 15.5 % (11.5-15.5); WBC 14.2 k/uL (3.8-10.6)
[2019-03-12 07:48] LABS: ALT 21 U/L (21-72); AST 31 U/L (17-59); African American GFR (CKD) >90 (>60 ml/min/1.73 sqM); Albumin 3.9 g/dL (3.5-5.0); Alkaline Phosphatase 70 U/L (38-126); Anion Gap 11 mmol/L; Blood Urea Nitrogen 17 mg/dL (9-20); Calcium 8.5 mg/dL (8.4-10.2); Carbon Dioxide 25 mmol/L (22-30); Chloride 104 mmol/L (98-107); Glucose 171 mg/dL (74-99); Sodium 140 mmol/L (137-145); Total Bilirubin 0.9 mg/dL (0.2-1.3); Total Protein 7.1 g/dL (6.3-8.2)
[2019-03-12 08:05] LABS: INR 0.9 (<1.2); Partial Thromboplastin Time 22.3 sec (22.0-30.0)
[2019-03-12 09:08] LABS: Appearance,Urine Turbid (Clear); Bilirubin,Urine Negative (Negative); Blood,Urine Negative (Negative); Color,Urine Yellow; Glucose,Urine (UA) Negative (Negative); Ketones,Urine 1+ (Negative); Leukocyte Esterase,Urine Negative (Negative); Nitrite,Urine Negative (Negative); PH, Urine 5.5 (5.0-8.0); Protein,Urine Trace (Negative); Specific Gravity,Urine 1.037 (1.001-1.035); Urobilinogen,Urine <2.0 mg/dL (<2.0); WBC,Urine 3 /hpf (0-5)
[2019-03-12] MEDS: PANTOPRAZOLE 40 MG/10 ML VIAL IVP SCH (09:12)
[2019-03-12] MEDS: SODIUM CHLORIDE 0.9% 1,000 ML IV SCH ×3 (09:12→16:32)
[2019-03-12 09:41] LABS: Glucose,Whole Blood 156 mg/dL (75-99)
[2019-03-12] MEDS ORDERED: KETAMINE 10 MG/ML 20 ML VIAL ONE (10:46)
[2019-03-12] MEDS ORDERED: PROPOFOL 10 MG/ML 20 ML VIAL IV ONE (10:46)
[2019-03-12] MEDS ORDERED: SUCCINYLCHOLINE CHLORIDE 100 MG/5 ML SYR IV ONE (10:46)
[2019-03-12] MEDS ORDERED: ROCURONIUM BROMIDE 10 MG/ML 10 ML VIAL IV ONE (10:46)
[2019-03-12] MEDS ORDERED: NEOSTIGMINE 1 MG/ML 10 ML VIAL ONE (10:46)
[2019-03-12] MEDS ORDERED: MIDAZOLAM 2 MG/2 ML VIAL ONE (10:46)
[2019-03-12] MEDS ORDERED: GLYCOPYRROLATE 0.2 MG/ML 2 ML VIAL ONE (10:46)
[2019-03-12] MEDS ORDERED: SODIUM CHLORIDE 0.9% 1,000 ML IV ONE (10:46)
--- NOTE | 2019-03-12 12:16 | P.OP ---
Date of Procedure: 03/12/19 Procedure(s) Performed: PREOPERATIVE DIAGNOSIS: Small bowel obstruction POSTOPERATIVE DIAGNOSIS: Gangrenous small bowel secondary to internal hernia with resultant bowel obstruction PROCEDURE: Exploratory laparotomy, lysis of adhesions, small bowel resection SURGEON: Raul EBL: 25 mL ANESTHESIA: General COMPLICATIONS: None OPERATIVE PROCEDURE: Place never table in the supine position. The patient was placed under general anesthesia. The abdomen was prepped and draped sterilely. The patient had a previous lower midline incision extending above the umbilicus. This incision was re-incised above and below the umbilicus. Dissection through the subcutaneous fat took place using electrocautery. The fascia was divided in a similar fashion. The patient had some adhesions to the undersurface of the fascia which were lysed sharply. We were able to visualize a loop of gangrenous small bowel. There was some marr-colored fluid throughout the abdominal cavity. This was evacuated. There were adhesions between the abdominal wall, omentum, and small bowel loops. One of these adhesions appeared to be creating an internal hernia through which a portion of the bowel had become incarcerated and subsequently gangrenous. The bowel was divided proximal and distal to this segment using a linear 75 stapler.. The length of his portion of small bowel was approximately 4-5 feet. The mesentery was then divided using a LigaSure device. No bleeding was seen along the resection site. A [id number] anastomosis then took place between these 2 portions of viable small bowel. The antimesenteric portion of the staple line was excised. Linear stapler was fired along the antimesenteric border. The remaining defect was closed transversely using a TX 60 device. The TX 60 stapler line was indicated using 3-0 GI silk sutures. A 3-0 GI silk crotch stitch was placed. The mesenteric defect was jamel pproximated using interrupted 3-0 GI silk sutures. The abdomen was then copiously irrigated. There were still some adhesions between the small bowel and itself and also the omentum and the pelvis that were left intact. The bowel however did not reveal any evidence of obstruction. The patient still had approximately 200-300 under cc of fluid within the stomach. The nasogastric tube was positioned more appropriately. Most of this fluid was then evacuated. The midline fascia was then reapproximated using 2 separate double-stranded #1 PDS sutures. The skin was closed using bi. 2 separate openings in the midline incision were left and Telfa mercedes were placed there. Sterile dressings were applied. DISPOSITION: Stable to recovery room
[2019-03-12 12:41] LABS: Glucose,Whole Blood 122 mg/dL (75-99)
[2019-03-12] MEDS ORDERED: ONDANSETRON 4 MG/2 ML VIAL IVP ONE (12:47)
[2019-03-12] MEDS ORDERED: ACETAMINOPHEN IV (For NPO) 1,000 MG/100 ML VIAL IVPB ONE (12:53)
[2019-03-12] MEDS: INSULIN ASPART (NovoLOG) 100 UNIT/ML VIAL SQ SCH ×3 (13:42→23:23)
--- NOTE | 2019-03-12 15:01 | P.CONS ---
History of Present Illness - Reason for Consult Consult date: 03/12/19 Medical management of hypertension and diabetes Requesting physician: Eliazar Carter - Chief Complaint Consult for medical management of hypertension diabetes - History of Present Illness The patient is a 78-year-old male with a past medical history of essential hypertension, type 2 diabetes, hyperlipidemia, coronary artery disease with CABG in 2009, insists interstitial lung disease secondary to idiopathic pulmonary fibrosis with recent right thorascopy with biopsis proven to be benign that presented to the ER with abdominal pain, and dry heaves and was admitted to general surgery under Dr. Carter after computed tomography scan showed findings consistent with a closed loop obstruction. The patient taken to the OR, exploratory laparoscopy was performed and a gangrenous small bowel with internal hernia resultant bowel obstruction was noted, the patient went on to have lysis of adhesions and small bowel resection. Postoperatively the patient's pain is adequately controlled, but he has been confused and disoriented at times. He denies any chest pain or shortness of breath, does complain of abdominal discomfort when he has the hiccups. Patient appears hemodynamically stable. Review of Systems Pertinent positives per HPI all other review of systems are otherwise negative Past Medical History Past Medical History: Coronary Artery Disease (CAD), Diabetes Mellitus, GERD/Ref lux, Hyperlipidemia, Hypertension, Osteoarthritis (OA), Respiratory Disorder Additional Past Medical History / Comment(s): RLS, SOB w/exertion, weight loss, cough started in Aug., diet controlled diabetic, has hiatal hernia History of Any Multi-Drug Resistant Organisms: None Reported Past Surgical History: Coronary Bypass/CABG, Heart Catheterization With Stent, Hernia Repair, Tonsillectomy Additional Past Surgical History / Comment(s): quadruple bypass 2009 Past Anesthesia/Blood Transfusion Reactions: No Reported Reaction Date of Last Stent Placement:: 2010 Past Psychological History: No Psychological Hx Reported Smoking Status: Never smoker Past Alcohol Use History: None Reported Past Drug Use History: None Reported - Past Family History Father Family Medical History: Congestive Heart Failure (CHF) Medications and Allergies Home Medications Medication Instructions Recorded Confirmed Type Aspirin 81 mg PO HS 05/23/15 03/11/19 History Atorvastatin [Lipitor] 80 mg PO HS 05/23/15 03/11/19 History Metoprolol Succinate [Toprol XL] 25 mg PO DAILY 05/23/15 03/11/19 History Omeprazole 20 mg PO DAILY 05/23/15 03/11/19 History Clopidogrel [Plavix] 75 mg PO DAILY 02/14/19 03/11/19 History Glucosamine-Chondr 500-400Mg 1 tab PO BID 02/14/19 03/11/19 History Multivitamins, Thera [Multivitamin 1 tab PO DAILY 02/14/19 03/11/19 History (formulary)] Naproxen Sodium [Aleve] 220 mg PO BID PRN 02/14/19 03/11/19 History [place]-3 Fatty Acids/Fish Oil [Fish 1 cap PO BID 02/14/19 03/11/19 History Oil 1,000 mg Softgel] Acetaminophen Tab [Tylenol] 1,000 mg PO Q6HR PRN tab 02/17/19 03/11/19 Rx Allergies Allergy/AdvReac Type Severity Reaction Status Date / Time heparin AdvReac caused Verified 03/11/19 17:21 blood clotting Physical Exam Vitals: Vital Signs Temp Pulse Pulse Resp BP BP BP 03/12/19 09:41 104 H 22 135/83 03/12/19 07:10 98.0 F 95 20 137/83 03/12/19 01:02 97.5 F L 86 15 148/80 03/12/19 00:55 15 03/11/19 20:33 97.4 F L 98 16 145/86 03/11/19 19:45 98.2 F 79 18 121/82 03/11/19 15:40 98.0 F 86 18 133/74 Pulse Ox 03/12/19 09:41 03/12/19 07:10 93 L 03/12/19 01:02 100 03/12/19 00:55 03/11/19 20:33 93 L 03/11/19 19:45 94 L 03/11/19 15:40 99 Intake and Output 03/11/19 03/12/19 03/12/19 22:59 06:59 14:59 Other: Voiding Method Urinal # Voids 0 Weight 63.503 kg Constitutional: No acute distress, conversant, pleasant Eyes: Anicteric sclerae, moist conjunctiva, no lid-lag, PERRLA ENMT: NC/AT,Oropharynx clear, no erythema, exudates Neck:Supple, FROM, no masses, or JVD, No carotid bruits; No thyromegaly Lungs: Clear to auscultation, Clear to percussion, Normal respiratory effort, no accessory muscle use Cardiovascular: Heart regular in rate and rhythm, No murmurs, gallops, or rubs no peripheral edema Abdominal: Soft tender to palpation around laparotomy incision sites, non distended, no guarding, no rebound or rigidity, hypoactive bowel sounds Skin: Normal temperature, tone, texture, turgor, No induration No subcutaneous nodules, No rash, lesions, No ulcers Extremities:No digital cyanosis No clubbing, Pedal pulses intact and symmetrical Radial pulses intact and symmetrical Normal gait and station, No calf tenderness Psychiatric: Alert and awake but confused at times, Appropriate affect Intact judgement Neuro: Muscles Strength 5/5 in all 4 extremities, Sensation to light touch grossly present throughout, Cranial nerves II-XII grossly intact. No focal sensory deficits Results CBC & Chem 7: 03/12/19 06:44 03/12/19 06:44 Labs: Abnormal Lab Results - Last 24 Hours (Table) 03/11/19 03/11/19 03/12/19 Range/Units 16:35 16:35 06:44 WBC 14.2 H (3.8-10.6) k/uL MCHC 30.9 L (31.0-37.0) g/dL RDW 16.4 H (11.5-15.5) % Neutrophils # 12.6 H (1.3-7.7) k/uL Lymphocytes # 0.9 L (1.0-4.8) k/uL Glucose 126 H (74-99) mg/dL POC Glucose (mg/dL) (75-99) mg/dL Amylase 131 H (30-110) U/L Ur Specific [place] (1.001-1.035) Urine Protein (Negative) Urine Ketones (Negative) 03/12/19 03/12/19 03/12/19 Range/Units 06:44 06:45 07:08 WBC (3.8-10.6) k/uL MCHC (31.0-37.0) g/dL RDW (11.5-15.5) % Neutrophils # (1.3-7.7) k/uL Lymphocytes # (1.0-4.8) k/uL Glucose 171 H (74-99) mg/dL POC Glucose (mg/dL) 165 H (75-99) mg/dL Amylase (30-110) U/L Ur Specific [place] 1.037 H (1.001-1.035) Urine Protein Trace H (Negative) Urine Ketones 1+ H (Negative) 03/12/19 Range/Units 09:38 WBC (3.8-10.6) k/uL MCHC (31.0-37.0) g/dL RDW (11.5-15.5) % Neutrophils # (1.3-7.7) k/uL Lymphocytes # (1.0-4.8) k/uL Glucose (74-99) mg/dL POC Glucose (mg/dL) 156 H (75-99) mg/dL Amylase (30-110) U/L Ur Specific [place] (1.001-1.035) Urine Protein (Negative) Urine Ketones (Negative) Assessment and Plan (1) Essential hypertension Current Visit: Yes Status: Acute Code(s): I10 - ESSENTIAL (PRIMARY) HYPERTENSION SNOMED Code(s): 89103931 (2) Leukocytosis Current Visit: Yes Status: Acute Code(s): D72.829 - ELEVATED WHITE BLOOD CELL COUNT, UNSPECIFIED SNOMED Code(s): 607571726 (3) Type 2 diabetes mellitus Current Visit: Yes Status: Acute Code(s): E11.9 - TYPE 2 DIABETES MELLITUS WITHOUT COMPLICATIONS SNOMED Code(s): 47263573 (4) CAD (coronary artery disease) Current Visit: Yes Status: Acute Code(s): I25.10 - ATHSCL HEART DISEASE OF [place] CORONARY ARTERY W/O ANG PCTRS SNOMED Code(s): 06227337 (5) Confusion Current Visit: Yes Status: Acute Code(s): R41.0 - DISORIENTATION, UNSPECIFIED SNOMED Code(s): 731720888 (6) Small bowel obstruction Current Visit: Yes Status: Acute Code(s): K56.609 - UNSP INTESTNL OBST, UNSP TO PARTIAL VERSUS COMPLETE OBST SNOMED Code(s): 590867784 Plan: Patient is admitted to general surgery with an acute small bowel obstruction and is postop after having an exploratory laparoscopy with lysis of adhesion and bowel resection secondary to a internal hernia and subsequent gangrenous small bowel. The patient is afebrile, does have a leukocytosis agree with continuing broad-spectrum antibiotic coverage with Zosyn. I will continue IV fluids patient has an NG tube in place, will defer analgesic but management to Dr. Carter. The patient is hemodynamically stable his blood pressure is normal, blood sugars are slightly elevated, implement sliding scale coverage. Continue with SCDs and PPI therapy for DVT and GI prophylaxis respectively. Continue to follow clinical course CODE STATUS: Full code
[2019-03-12 17:13] LABS: Glucose,Whole Blood 110 mg/dL (75-99)
[2019-03-12 20:43] LABS: Glucose,Whole Blood 91 mg/dL (75-99)
[2019-03-13] MEDS: SODIUM CHLORIDE 0.9% 1,000 ML IV SCH ×4 (03:27→22:14)
[2019-03-13 07:10] LABS: Glucose,Whole Blood 104 mg/dL (75-99)
[2019-03-13] MEDS: MORPHINE SULFATE 4 MG/ML SYRINGE IVP PRN ×2 (07:11→17:22)
[2019-03-13] MEDS: INSULIN ASPART (NovoLOG) 100 UNIT/ML VIAL SQ SCH ×4 (07:12→21:27)
[2019-03-13 07:45] LABS: Basophils % (A) 0 %; Eosinophils % (A) 0 %; HCT 37.2 % (39.0-53.0); Hypochromasia Moderate; Lymphocytes # (A) 0.8 k/uL (1.0-4.8); Lymphocytes % (A) 9 %; MCH 27.2 pg (25.0-35.0); MCHC 32.1 g/dL (31.0-37.0); MCV 84.8 fL (80.0-100.0); Mean Platelet Volume 7.2; Monocytes # (A) 0.4 k/uL (0-1.0); Monocytes % (A) 5 %; Neutrophils % (A) 85 %; Platelet Count 225 k/uL (150-450); RBC 4.38 m/uL (4.30-5.90); RDW 15.8 % (11.5-15.5); WBC 8.3 k/uL (3.8-10.6)
[2019-03-13] MEDS: PIPERACILLIN-TAZOBACTAM 3.375 GM in SODIUM CHLORIDE 0.9% 100 ML IVPB SCH ×2 (07:49→15:44)
[2019-03-13] MEDS: PANTOPRAZOLE 40 MG/10 ML VIAL IVP SCH (07:49)
[2019-03-13 07:57] LABS: ALT 24 U/L (21-72); AST 35 U/L (17-59); African American GFR (CKD) >90 (>60 ml/min/1.73 sqM); Albumin 2.8 g/dL (3.5-5.0); Alkaline Phosphatase 48 U/L (38-126); Anion Gap 4 mmol/L; Blood Urea Nitrogen 14 mg/dL (9-20); Calcium 7.4 mg/dL (8.4-10.2); Carbon Dioxide 28 mmol/L (22-30); Chloride 108 mmol/L (98-107); Glucose 101 mg/dL (74-99); Potassium 4.3 mmol/L (3.5-5.1); Sodium 140 mmol/L (137-145); Total Bilirubin 0.7 mg/dL (0.2-1.3); Total Protein 5.5 g/dL (6.3-8.2)
[2019-03-13 08:12] LABS: HGB 11.9 gm/dL (13.0-17.5)
[2019-03-13] MEDS ORDERED: KETOTIFEN 0.025% OPHTH DROPS 5 ML BTL BOTH EYES SCH (10:39)
[2019-03-13 11:27] LABS: Glucose,Whole Blood 99 mg/dL (75-99)
[2019-03-13] MEDS: NEOMYCIN-POLYMYXIN-DEXAMETH (3.5-10,000-0.1) DROPS 5 ML BTL BOTH EYES SCH ×2 (12:21→22:28)
--- NOTE | 2019-03-13 13:30 | P.PN ---
Subjective Progress Note Date: 03/13/19 Principal diagnosis: Small bowel obstruction Patient feels better today. His pain is improved. He is afebrile. Mild tachycardia. Labs noted. Objective - Vital Signs Vital signs: Vital Signs Temp 98.7 F 03/13/19 07:00 Pulse 102 H 03/13/19 07:00 Resp 16 03/13/19 07:00 BP 130/77 03/13/19 07:00 Pulse Ox 94 L 03/13/19 07:00 Intake & Output 03/12/19 03/13/19 03/13/19 18:59 06:59 18:59 Intake Total 1600 Output Total 537 640 7897 Balance 960 -425 -1100 Intake: IV 1600 Sodium Chloride 0.9% 1, 1000 000 ml @ 125 mls/hr IV . Q8H [facility] Rx#:[id number] Output: Gastric Drainage 20 Urine 215 399 6203 Uretheral ([place]) 1100 Estimated Blood Loss 50 Other: Voiding Method Indwelling Catheter Indwelling Catheter Indwelling Catheter - Exam Abdomen: Soft, mild tenderness, dressing clean and dry - Labs CBC & Chem 7: 03/13/19 07:08 03/13/19 07:08 Labs: Abnormal Lab Results - Last 24 Hours (Table) 03/12/19 03/13/19 03/13/19 Range/Units 17:11 07:08 07:08 Hgb 11.9 L D (13.0-17.5) gm/dL Hct 37.2 L (39.0-53.0) % RDW 15.8 H (11.5-15.5) % Lymphocytes # 0.8 L (1.0-4.8) k/uL Chloride 108 H (98-107) mmol/L Glucose 101 H (74-99) mg/dL POC Glucose (mg/dL) 110 H (75-99) mg/dL Calcium 7.4 L (8.4-10.2) mg/dL Total Protein 5.5 L (6.3-8.2) g/dL Albumin 2.8 L (3.5-5.0) g/dL 03/13/19 Range/Units 07:08 Hgb (13.0-17.5) gm/dL Hct (39.0-53.0) % RDW (11.5-15.5) % Lymphocytes # (1.0-4.8) k/uL Chloride (98-107) mmol/L Glucose (74-99) mg/dL POC Glucose (mg/dL) 104 H (75-99) mg/dL Calcium (8.4-10.2) mg/dL Total Protein (6.3-8.2) g/dL Albumin (3.5-5.0) g/dL Microbiology - Last 24 Hours (Table) 03/12/19 06:45 Urine Culture - Final Urine,Clean Catch Assessment and Plan (1) Small bowel obstruction Narrative/Plan: Continue IV antibiotics. Keep nothing by mouth with nasogastric tube to suction . Gradually increase activity. Current Visit: Yes Status: Acute Code(s): K56.609 - UNSP INTESTNL OBST, UNSP TO PARTIAL VERSUS COMPLETE OBST SNOMED Code(s): 090165095
[2019-03-13 14:05] LABS: Hemoglobin A1C 6.2 % (4.0-6.0)
--- NOTE | 2019-03-13 15:41 | P.PN ---
Subjective Progress Note Date: 03/13/19 Principal diagnosis: possible SBO Patient was seen and examined. No acute events overnight. Patient complains of 3 out of 10 pain, at the site of incision. States that the pain is worsened with movement. Can't exacerbate to 10 out of 10 with movement. Patient is currently nothing by mouth with NG tube to suction. He denies any chest pain, shortness of breath or palpitations. Objective - Vital Signs Vital signs: Vital Signs Temp 98.7 F 03/13/19 07:00 Pulse 102 H 03/13/19 07:00 Resp 16 03/13/19 07:00 BP 130/77 03/13/19 07:00 Pulse Ox 94 L 03/13/19 07:00 Intake & Output 03/12/19 03/13/19 03/13/19 18:59 06:59 18:59 Intake Total 1600 Output Total 207 014 9529 Balance 960 -425 -1100 Intake: IV 1600 Sodium Chloride 0.9% 1, 1000 000 ml @ 125 mls/hr IV . Q8H [facility] Rx#:[id number] Output: Gastric Drainage 20 Urine 449 450 9820 Uretheral ([place]) 1100 Estimated Blood Loss 50 Other: Voiding Method Indwelling Catheter Indwelling Catheter Indwelling Catheter - Exam General: [non toxic], [no distress], [appears at stated age] Derm: [warm], [dry] Head: [atraumatic], [normocephalic], [symmetric], [NG tube to suction] Eyes: [EOMI], [no lid lag], [anicteric sclera] Mouth: [no lip lesion], [mucus membranes moist] Cardiovascular: [S1S2 reg], [no murmur], [positive posterior tibial pulse bilateral], Lungs: [CTA bilateral], [no rhonchi, no rales] , [no accessory muscle use] Abdominal: [soft], [tenderness to palpation along the incision of the abdominal wall, dressing clear dry and intact], [no guarding], [no appreciable organomegaly] Ext: [no gross muscle atrophy], [no edema], [no contractures] Neuro: [no focal neuro deficits] Psych: [Alert], [oriented], [appropriate affect] - Labs CBC & Chem 7: 03/13/19 07:08 03/13/19 07:08 Labs: Abnormal Lab Results - Last 24 Hours (Table) 03/12/19 03/13/19 03/13/19 Range/Units 17:11 07:08 07:08 Hgb 11.9 L D (13.0-17.5) gm/dL Hct 37.2 L (39.0-53.0) % RDW 15.8 H (11.5-15.5) % Lymphocytes # 0.8 L (1.0-4.8) k/uL Chloride 108 H (98-107) mmol/L Glucose 101 H (74-99) mg/dL POC Glucose (mg/dL) 110 H (75-99) mg/dL Calcium 7.4 L (8.4-10.2) mg/dL Total Protein 5.5 L (6.3-8.2) g/dL Albumin 2.8 L (3.5-5.0) g/dL 03/13/19 Range/Units 07:08 Hgb (13.0-17.5) gm/dL Hct (39.0-53.0) % RDW (11.5-15.5) % Lymphocytes # (1.0-4.8) k/uL Chloride (98-107) mmol/L Glucose (74-99) mg/dL POC Glucose (mg/dL) 104 H (75-99) mg/dL Calcium (8.4-10.2) mg/dL Total Protein (6.3-8.2) g/dL Albumin (3.5-5.0) g/dL Microbiology - Last 24 Hours (Table) 03/12/19 06:45 Urine Culture - Final Urine,Clean Catch Assessment and Plan Assessment: Assessment and Plan Hypertension Diabetes mellitus CAD Anemia likely secondary to acute blood loss from surgery Small bowel obstruction BP 130/77. Plans:continue metoprolol. Monitor vitals, adjust medications as necessary. Oxfqx-fw-yfzb glucose 101. Plans: Insulin sliding scale. Regular Accu-Cheks. Hypoglycemic precautions. Follow A1c. Stable. Plans: Continue metoprolol. Restart Lipitor. Restart aspirin and Plavix when okay by general surgery. Hemoglobin 14.9-11.9. Likely secondary to acute blood loss from surgery. Plans: Daily CBC. Transfuse if hemoglobin less than 7. Postop day 1 exploratory laparotomy. Plans: Keep nothing by mouth. NG tube to suction. Continue Zosyn for IV antibiotic coverage. Continue normal saline at 125 mL per hour. Zofran as needed for nausea and vomiting. Follow general surgery recommendations. Thank you for this consult. Please call with any additional questions.
[2019-03-13 17:14] LABS: Glucose,Whole Blood 69 mg/dL (75-99)
[2019-03-13 20:51] LABS: Glucose,Whole Blood 121 mg/dL (75-99)
[2019-03-13] MEDS: ATORVASTATIN 80 MG TAB PO SCH (22:26)
[2019-03-14] MEDS: PIPERACILLIN-TAZOBACTAM 3.375 GM in SODIUM CHLORIDE 0.9% 100 ML IVPB SCH ×3 (00:07→17:02)
[2019-03-14] MEDS: MORPHINE SULFATE 4 MG/ML SYRINGE IVP PRN ×2 (00:10→08:19)
[2019-03-14] MEDS: SODIUM CHLORIDE 0.9% 1,000 ML IV SCH ×3 (04:53→22:52)
[2019-03-14 06:59] LABS: Glucose,Whole Blood 96 mg/dL (75-99)
[2019-03-14] MEDS: INSULIN ASPART (NovoLOG) 100 UNIT/ML VIAL SQ SCH ×4 (07:19→20:57)
[2019-03-14] MEDS: NEOMYCIN-POLYMYXIN-DEXAMETH (3.5-10,000-0.1) DROPS 5 ML BTL BOTH EYES SCH ×2 (08:21→21:01)
[2019-03-14] MEDS: PANTOPRAZOLE 40 MG/10 ML VIAL IVP SCH (08:22)
[2019-03-14] MEDS: METOPROLOL SUCCINATE (ER) 25 MG TAB.ER.24H PO SCH (10:08)
[2019-03-14 11:29] LABS: Glucose,Whole Blood 87 mg/dL (75-99)
--- NOTE | 2019-03-14 16:19 | P.PN ---
Subjective Progress Note Date: 03/14/19 Principal diagnosis: Small bowel obstruction Patient doing better today. Still nauseated at times. No flatus or bowel movement. No CBC today. T-max 99.3 Objective - Vital Signs Vital signs: Vital Signs Temp 99.0 F 03/14/19 14:48 Pulse 90 03/14/19 14:48 Resp 15 03/14/19 14:48 BP 136/75 03/14/19 14:48 Pulse Ox 93 L 03/14/19 14:48 Intake & Output 03/13/19 03/14/19 03/14/19 18:59 06:59 18:59 Intake Total 975 1000 Output Total 1400 450 200 Balance -425 -450 800 Weight 63.503 kg Intake: IV 1000 Sodium Chloride 0.9% 1, 1000 000 ml @ 125 mls/hr IV . Q8H [facility] Rx#:[id number] Intake, IV Titration 975 Amount Piperacillin-Tazobactam 3 100 .375 gm In Sodium Chloride 0.9% 100 ml @ 25 mls/hr IVPB Q8HR [facility] Rx# :[id number] Sodium Chloride 0.9% 1, 875 000 ml @ 125 mls/hr IV . Q8H [facility] Rx#:[id number] Output: Urine 1400 450 200 Uretheral ([place]) 1100 Other: Voiding Method Indwelling Catheter Urinal Toilet Urinal - Exam Abdomen: Soft, nondistended, mild tenderness, dressing clean and dry - Labs CBC & Chem 7: 03/13/19 07:08 03/13/19 07:08 Labs: Abnormal Lab Results - Last 24 Hours (Table) 03/13/19 03/13/19 Range/Units 17:12 20:49 POC Glucose (mg/dL) 69 L 121 H (75-99) mg/dL Microbiology - Last 24 Hours (Table) 03/12/19 06:45 Urine Culture - Final Urine,Clean Catch Assessment and Plan (1) Small bowel obstruction Narrative/Plan: Continue broad-spectrum antibiotics. Keep nothing by mouth. Continue gastric suction. Ambulate. We'll consult physical therapy. Begin changing mercedes. Current Visit: Yes Status: Acute Code(s): K56.609 - UNSP INTESTNL OBST, UNSP TO PARTIAL VERSUS COMPLETE OBST SNOMED Code(s): 466914335
[2019-03-14 17:03] LABS: Glucose,Whole Blood 82 mg/dL (75-99)
--- NOTE | 2019-03-14 18:55 | P.PN ---
Subjective Progress Note Date: 03/14/19 Principal diagnosis: SBO Patient was seen and examined. No acute events overnight. Patient reports great improvement in his abdominal pain. Currently 0 out of 10 in severity. Patient reports no nausea or vomiting. Accidentally pulled out his NG tube. No fever or chills. He denies any chest pain, shortness of breath or palpitations. Objective - Vital Signs Vital signs: Vital Signs Temp 99.0 F 03/14/19 14:48 Pulse 90 03/14/19 14:48 Resp 15 03/14/19 14:48 BP 136/75 03/14/19 14:48 Pulse Ox 93 L 03/14/19 14:48 Intake & Output 03/13/19 03/14/19 03/14/19 18:59 06:59 18:59 Intake Total 975 1000 Output Total 1400 450 200 Balance -425 -450 800 Weight 63.503 kg Intake: IV 1000 Sodium Chloride 0.9% 1, 1000 000 ml @ 125 mls/hr IV . Q8H [facility] Rx#:[id number] Intake, IV Titration 975 Amount Piperacillin-Tazobactam 3 100 .375 gm In Sodium Chloride 0.9% 100 ml @ 25 mls/hr IVPB Q8HR [facility] Rx# :[id number] Sodium Chloride 0.9% 1, 875 000 ml @ 125 mls/hr IV . Q8H [facility] Rx#:[id number] Output: Urine 1400 450 200 Uretheral ([place]) 1100 Other: Voiding Method Indwelling Catheter Urinal Toilet Urinal - Exam General: [non toxic], [no distress], [appears at stated age] Derm: [warm], [dry] Head: [atraumatic], [normocephalic], [symmetric] Eyes: [EOMI], [no lid lag], [anicteric sclera] Mouth: [no lip lesion], [mucus membranes moist] Cardiovascular: [S1S2 reg], [no murmur], [positive DP pulse bilateral], Lungs: [CTA bilateral], [no rhonchi, no rales] , [no accessory muscle use] Abdominal: [soft], [ nontender to palpation], [no guarding], [no appreciable organomegaly], [laparoscopic scars intact] Ext: [no gross muscle atrophy], [no edema], [no contractures] Neuro: [no focal neuro deficits] Psych: [Alert], [oriented], [appropriate affect] - Labs CBC & Chem 7: 03/13/19 07:08 03/13/19 07:08 Labs: Abnormal Lab Results - Last 24 Hours (Table) 03/13/19 Range/Units 20:49 POC Glucose (mg/dL) 121 H (75-99) mg/dL Assessment and Plan Assessment: Assessment and Plan Assessment and Plan Hypertension Diabetes mellitus CAD Anemia likely secondary to acute blood loss from surgery Small bowel obstruction BP 136/75. Plans: Continue metoprolol. Monitor vitals, adjust medications as necessary. Sbbfx-ub-nknr glucose 82. Plans: Insulin sliding scale. Regular Accu-Cheks. Hypoglycemic precautions. Follow A1c. Stable. Plans: Continue metoprolol. Restart Lipitor. Restart aspirin and Plavix when okay by general surgery. Hemoglobin 14.9-11.9. Likely secondary to acute blood loss from surgery. Plans: Daily CBC. Transfuse if hemoglobin less than 7. Postop day 1 exploratory laparotomy. Plans: Keep nothing by mouth. NG tube to suction. Continue Zosyn for IV antibiotic coverage. Continue normal saline at 125 mL per hour. Zofran as needed for nausea and vomiting. Follow general surgery recommendations. No bowel movement or passing gas as of yet. Going to work with PT tomorrow. DC planning as per general surgery recommendations.
[2019-03-14 20:17] LABS: Glucose,Whole Blood 85 mg/dL (75-99)
[2019-03-14] MEDS: ATORVASTATIN 80 MG TAB PO SCH (21:00)
[2019-03-15] MEDS: PIPERACILLIN-TAZOBACTAM 3.375 GM in SODIUM CHLORIDE 0.9% 100 ML IVPB SCH ×3 (00:33→15:47)
[2019-03-15] MEDS: MORPHINE SULFATE 4 MG/ML SYRINGE IVP PRN (00:34)
[2019-03-15] MEDS: SODIUM CHLORIDE 0.9% 1,000 ML IV SCH ×3 (05:29→22:22)
[2019-03-15 07:03] LABS: Glucose,Whole Blood 75 mg/dL (75-99)
[2019-03-15] MEDS: INSULIN ASPART (NovoLOG) 100 UNIT/ML VIAL SQ SCH ×4 (07:38→22:20)
[2019-03-15] MEDS: PANTOPRAZOLE 40 MG/10 ML VIAL IVP SCH (08:12)
[2019-03-15] MEDS: METOPROLOL SUCCINATE (ER) 25 MG TAB.ER.24H PO SCH (08:12)
[2019-03-15] MEDS: NEOMYCIN-POLYMYXIN-DEXAMETH (3.5-10,000-0.1) DROPS 5 ML BTL BOTH EYES SCH ×2 (08:13→22:20)
[2019-03-15 09:32] LABS: Basophils % (A) 0 %; Eosinophils # (A) 0.4 k/uL (0-0.7); Eosinophils % (A) 5 %; HCT 35.6 % (39.0-53.0); Hypochromasia Slight; Lymphocytes # (A) 0.9 k/uL (1.0-4.8); Lymphocytes % (A) 12 %; MCH 26.8 pg (25.0-35.0); MCV 86.5 fL (80.0-100.0); Mean Platelet Volume 7.3; Monocytes # (A) 0.3 k/uL (0-1.0); Monocytes % (A) 3 %; Neutrophils # (A) 6.2 k/uL (1.3-7.7); Neutrophils % (A) 79 %; Platelet Count 243 k/uL (150-450); RBC 4.11 m/uL (4.30-5.90); RDW 15.9 % (11.5-15.5); WBC 7.9 k/uL (3.8-10.6)
[2019-03-15 09:57] LABS: African American GFR (CKD) >90 (>60 ml/min/1.73 sqM); Anion Gap 7 mmol/L; Blood Urea Nitrogen 14 mg/dL (9-20); Calcium 7.7 mg/dL (8.4-10.2); Carbon Dioxide 25 mmol/L (22-30); Chloride 107 mmol/L (98-107); Glucose 75 mg/dL (74-99); Potassium 3.8 mmol/L (3.5-5.1); Sodium 139 mmol/L (137-145)
[2019-03-15 12:02] LABS: Glucose,Whole Blood 65 mg/dL (75-99)
[2019-03-15 12:22] LABS: Glucose,Whole Blood 68 mg/dL (75-99)
[2019-03-15 13:26] LABS: Glucose,Whole Blood 97 mg/dL (75-99)
--- NOTE | 2019-03-15 16:39 | P.PN ---
Subjective Progress Note Date: 03/15/19 Principal diagnosis: SBO Patient was seen and examined. No acute events overnight. Patient reports improvement in his abdominal pain from the last 2 days. Current pain is located in the location of laparoscopic surgical scars. He denies any nausea or vomiting. No fever or chills. Patient reports passing gas but has not had a bowel movement yet. He denies any chest pain, shortness of breath or palpitations. Objective - Vital Signs Vital signs: Vital Signs Temp 98.7 F 03/15/19 14:10 Pulse 83 03/15/19 14:10 Resp 18 03/15/19 14:10 BP 137/77 03/15/19 14:10 Pulse Ox 91 L 03/15/19 14:10 Intake & Output 03/14/19 03/15/19 03/15/19 18:59 06:59 18:59 Intake Total 1000 1000 Output Total 200 Balance 800 1000 Weight 63.503 kg Intake: IV 1000 Sodium Chloride 0.9% 1, 1000 000 ml @ 125 mls/hr IV . Q8H [facility] Rx#:[id number] Intake, IV Titration 1000 Amount Sodium Chloride 0.9% 1, 1000 000 ml @ 125 mls/hr IV . Q8H [facility] Rx#:[id number] Output: Urine 200 Other: Voiding Method Toilet Toilet Urinal Urinal # Voids 2 3 # Bowel Movements 1 - Exam General: [non toxic], [no distress], [appears at stated age] Derm: [warm], [dry] Head: [atraumatic], [normocephalic], [symmetric] Eyes: [EOMI], [no lid lag], [anicteric sclera] Mouth: [no lip lesion], [mucus membranes moist] Cardiovascular: [S1S2 reg], [no murmur], [positive DP pulse bilateral], Lungs: [CTA bilateral], [no rhonchi, no rales] , [no accessory muscle use] Abdominal: [soft], [ nontender to palpation], [no guarding], [no appreciable organomegaly], [laparoscopic scars intact] Ext: [no gross muscle atrophy], [no edema], [no contractures] Neuro: [no focal neuro deficits] Psych: [Alert], [oriented], [appropriate affect] - Labs CBC & Chem 7: 03/15/19 08:20 03/15/19 08:20 Labs: Abnormal Lab Results - Last 24 Hours (Table) 03/15/19 03/15/19 03/15/19 Range/Units 08:20 08:20 11:42 RBC 4.11 L (4.30-5.90) m/uL Hgb 11.0 L (13.0-17.5) gm/dL Hct 35.6 L (39.0-53.0) % RDW 15.9 H (11.5-15.5) % Lymphocytes # 0.9 L (1.0-4.8) k/uL POC Glucose (mg/dL) 65 L (75-99) mg/dL Calcium 7.7 L (8.4-10.2) mg/dL 03/15/19 Range/Units 12:09 RBC (4.30-5.90) m/uL Hgb (13.0-17.5) gm/dL Hct (39.0-53.0) % RDW (11.5-15.5) % Lymphocytes # (1.0-4.8) k/uL POC Glucose (mg/dL) 68 L (75-99) mg/dL Calcium (8.4-10.2) mg/dL Assessment and Plan Assessment: Assessment and Plan Hypertension Diabetes mellitus CAD Anemia likely secondary to acute blood loss from surgery Small bowel obstruction BP 137/77. Plans: Continue metoprolol. Monitor vitals, adjust medications as necessary. Kogjk-ot-jcgp glucose 97. Plans: Insulin sliding scale. Regular Accu-Cheks. Hypoglycemic precautions. Follow A1c. Stable. Plans: Continue metoprolol. Restart Lipitor. Restart aspirin and Plavix when okay by general surgery. Hemoglobin 14.9-11.9-11. Likely secondary to acute blood loss from surgery. Plans: Daily CBC. Transfuse if hemoglobin less than 7. Postop day 2 exploratory laparotomy. Plans: Keep nothing by mouth. NG tube to suction. Continue Zosyn for IV antibiotic coverage. Continue normal saline at 125 mL per hour. Zofran as needed for nausea and vomiting. Follow general surgery recommendations. Passing gas with no bowel movement. Anticipate advance diet based on surgery recommendations. Discharge planning as per general surgery recommendations.
[2019-03-15 16:58] LABS: Glucose,Whole Blood 74 mg/dL (75-99)
[2019-03-15] MEDS ORDERED: ACETAMINOPHEN TAB 500 MG TAB PO PRN (19:18)
[2019-03-15] MEDS ORDERED: HYDROcodone/APAP 5-325MG 1 EACH TAB PO PRN (19:18)
--- NOTE | 2019-03-15 19:20 | P.PN ---
Subjective Progress Note Date: 03/15/19 Principal diagnosis: Small bowel obstruction Patient doing well today. His pain is improved. He is passing flatus. Nasogastric tube fell out last night. He is quite anxious for solid foods. He would like to go home tomorrow. He is afebrile. Objective - Vital Signs Vital signs: Vital Signs Temp 98.7 F 03/15/19 14:10 Pulse 83 03/15/19 14:10 Resp 18 03/15/19 14:10 BP 137/77 03/15/19 14:10 Pulse Ox 91 L 03/15/19 14:10 Intake & Output 03/15/19 03/15/19 03/16/19 06:59 18:59 06:59 Intake Total 1000 Balance 1000 Intake: Intake, IV Titration 1000 Amount Sodium Chloride 0.9% 1, 1000 000 ml @ 125 mls/hr IV . Q8H [facility] Rx#:[id number] Other: Voiding Method Toilet Urinal # Voids 2 3 # Bowel Movements 1 - Exam Abdomen: Soft, nondistended, incision clean and dry, [place] placed - Labs CBC & Chem 7: 03/15/19 08:20 03/15/19 08:20 Labs: Abnormal Lab Results - Last 24 Hours (Table) 03/15/19 03/15/19 03/15/19 Range/Units 08:20 08:20 11:42 RBC 4.11 L (4.30-5.90) m/uL Hgb 11.0 L (13.0-17.5) gm/dL Hct 35.6 L (39.0-53.0) % RDW 15.9 H (11.5-15.5) % Lymphocytes # 0.9 L (1.0-4.8) k/uL POC Glucose (mg/dL) 65 L (75-99) mg/dL Calcium 7.7 L (8.4-10.2) mg/dL 03/15/19 03/15/19 Range/Units 12:09 16:45 RBC (4.30-5.90) m/uL Hgb (13.0-17.5) gm/dL Hct (39.0-53.0) % RDW (11.5-15.5) % Lymphocytes # (1.0-4.8) k/uL POC Glucose (mg/dL) 68 L 74 L (75-99) mg/dL Calcium (8.4-10.2) mg/dL Assessment and Plan (1) Small bowel obstruction Narrative/Plan: Continue antibiotics. Add oral analgesics. Advance diet to full liquids. Possible discharge tomorrow. Current Visit: Yes Status: Acute Code(s): K56.609 - UNSP INTESTNL OBST, UNSP TO PARTIAL VERSUS COMPLETE OBST SNOMED Code(s): 297564388
[2019-03-15 21:34] LABS: Glucose,Whole Blood 93 mg/dL (75-99)
[2019-03-15] MEDS: ATORVASTATIN 80 MG TAB PO SCH (22:20)
[2019-03-16] MEDS: KETOROLAC 30 MG/ML 1 ML VIAL IVP SCH ×3 (01:00→11:50)
[2019-03-16] MEDS: PIPERACILLIN-TAZOBACTAM 3.375 GM in SODIUM CHLORIDE 0.9% 100 ML IVPB SCH ×2 (01:01→08:12)
[2019-03-16] MEDS: SODIUM CHLORIDE 0.9% 1,000 ML IV SCH ×2 (06:05→13:52)
[2019-03-16 07:16] LABS: Glucose,Whole Blood 78 mg/dL (75-99)
[2019-03-16] MEDS: INSULIN ASPART (NovoLOG) 100 UNIT/ML VIAL SQ SCH ×2 (07:36→12:00)
[2019-03-16 07:59] VITALS: BP 149/74; PULSE 71; RESP 15; TEMP 98.3
[2019-03-16] MEDS: METOPROLOL SUCCINATE (ER) 25 MG TAB.ER.24H PO SCH (08:11)
[2019-03-16] MEDS: PANTOPRAZOLE 40 MG/10 ML VIAL IVP SCH (08:12)
[2019-03-16] MEDS: NEOMYCIN-POLYMYXIN-DEXAMETH (3.5-10,000-0.1) DROPS 5 ML BTL BOTH EYES SCH (08:13)
[2019-03-16 12:10] LABS: Glucose,Whole Blood 78 mg/dL (75-99)
--- NOTE | 2019-03-16 14:31 | P.DS ---
Providers Date of admission: 03/11/19 19:22 Expected date of discharge: 03/16/19 Attending physician: Eliazar Carter Consults: 03/11/19 19:22 Consult Physician Routine Consulting Provider: Jean Babb Consult Reason/Comments: medMgmnt Do you want consulting provider notified?: Already Contacted Primary care physician: Kevin Gann - Discharge Diagnosis(es) (1) Small bowel obstruction Patient admitted 5 days ago with bowel obstruction. He was taken to the operative room on Wednesday and underwent small bowel resection for a ischemic loop of bowel from internal herniation. Patient has done well postoperatively. He is now on a full liquid diet and tolerating that well. He is having flatus and bowel movements. He is quite anxious to go home today. Denies pain. We'll discharged today with home care. Aquacel silver dressing changes every other day. Prescription for [place] and Levaquin provided. He will follow-up in the office 1 week. Current Visit: Yes Status: Acute Patient Condition at Discharge: Fair Plan - Discharge Summary Discharge Rx Participant: No New Discharge Prescriptions: No Action Omeprazole 20 mg PO DAILY Atorvastatin [Lipitor] 80 mg PO HS Aspirin 81 mg PO HS Metoprolol Succinate [Toprol XL] 25 mg PO DAILY Multivitamins, Thera [Multivitamin (formulary)] 1 tab PO DAILY Clopidogrel [Plavix] 75 mg PO DAILY Naproxen Sodium [Aleve] 220 mg PO BID PRN PRN Reason: Pain Glucosamine-Chondr 500-400Mg 1 tab PO BID [place]-3 Fatty Acids/Fish Oil [Fish Oil 1,000 mg Softgel] 1 cap PO BID Acetaminophen Tab [Tylenol] 1,000 mg PO Q6HR PRN tab PRN Reason: Fever And/ Or Pain Discharge Medication List Aspirin 81 mg PO HS 05/23/15 [History] Atorvastatin [Lipitor] 80 mg PO HS 05/23/15 [History] Metoprolol Succinate [Toprol XL] 25 mg PO DAILY 05/23/15 [History] Omeprazole 20 mg PO DAILY 05/23/15 [History] Clopidogrel [Plavix] 75 mg PO DAILY 02/14/19 [History] Glucosamine-Chondr 500-400Mg 1 tab PO BID 02/14/19 [History] Multivitamins, Thera [Multivitamin (formulary)] 1 tab PO DAILY 02/14/19 [History] Naproxen Sodium [Aleve] 220 mg PO BID PRN 02/14/19 [History] [place]-3 Fatty Acids/Fish Oil [Fish Oil 1,000 mg Softgel] 1 cap PO BID 02/14/19 [History] Acetaminophen Tab [Tylenol] 1,000 mg PO Q6HR PRN tab 02/17/19 [Rx] Follow up Appointment(s)/Referral(s): Kevin Gann MD [Primary Care Provider] - 1-2 days
--- NOTE | 2019-03-17 05:37 | PN ---
PROGRESS NOTE DATE OF SERVICE: 03/16/2019 PRESENTING COMPLAINT: Bowel surgery. INTERVAL HISTORY: I saw this patient this morning, status post small bowel obstruction surgery. Did tolerate a diet. Passed some flatus. No abdominal pain. No nausea, vomiting. Doing well, up and down the hallway. Very keen to go home. Breathing is stable. REVIEW OF SYSTEMS: Done for constitutional, cardiovascular, GI, pulmonary; relevant findings as above. CURRENT MEDICATIONS: Current medications are reviewed. PHYSICAL EXAMINATION: On examination, temperature 98.7, pulse 83, respiration 18, blood pressure 137/77, pulse ox 91% on room air. LUNGS: Fair entry. CARDIOVASCULAR: First and second sounds normal. ABDOMEN: Soft. Minimal tenderness. Bowel sounds are present. PSYCHIATRY: Alert and oriented x3. Mood and affect normal. EYES: Pupils equal. Conjunctivae normal. INVESTIGATIONS: Accu-Cheks are noted. ASSESSMENT: 1. Small bowel obstruction followed by surgical intervention. 2. Coronary artery disease, prior history of bypass and stent. 3. Diabetes mellitus type 2. 4. Gastroesophageal reflux disease. 5. Hyperlipidemia. 6. Essential hypertension. 7. Primary osteoarthritis. 8. Restless legs syndrome. PLAN: Patient is very keen to go home. Did discuss with the patient to keep a close eye on his Accu-Cheks. Pain medications per Dr. Carter. Patient to follow up with his family doctor in next 2 or 3 days. Thank you, Dr. Carter. MMDMITRYL / DEANNE: [id number] /
== END 2019-03-16 15:21 | disposition home health service (06) | DRG 329 ==
LOC: EC 15:37 → 4SSUR 19:22
PROVIDERS: ADMIT Surgery; ATTEND Surgery
PROC: 0D9670Z Drainage of Stomach with Drainage Device, Via Natural or Artificial Opening (ICD-10-PCS; 2019-03-11)
PROC: 0DT80ZZ Resection of Small Intestine, Open Approach (ICD-10-PCS; principal; 2019-03-12 10:00)
DX: K56.50 Intestinal adhesions [bands], unspecified as to partial versus complete obstruction (principal); K55.029 Acute infarction of small intestine, extent unspecified; D62 Acute posthemorrhagic anemia; J84.112 Idiopathic pulmonary fibrosis; E11.9 Type 2 diabetes mellitus without complications; E78.5 Hyperlipidemia, unspecified; I25.10 Atherosclerotic heart disease of native coronary artery without angina pectoris; I10 Essential (primary) hypertension; K21.9 Gastro-esophageal reflux disease without esophagitis; G25.81 Restless legs syndrome; M19.91 Primary osteoarthritis, unspecified site; K44.9 Diaphragmatic hernia without obstruction or gangrene; R41.0 Disorientation, unspecified; Z79.82 Long term (current) use of aspirin; Z79.02 Long term (current) use of antithrombotics/antiplatelets; Z79.899 Other long term (current) drug therapy; Z95.1 Presence of aortocoronary bypass graft; Z95.5 Presence of coronary angioplasty implant and graft; Z98.890 Other specified postprocedural states; Z88.8 Allergy status to other drugs, medicaments and biological substances; Z82.49 Family history of ischemic heart disease and other diseases of the circulatory system
CPT/HCPCS: 36415; 71045; 74018; 74177; 80048; 80053; 81001; 82150; 83036; 83605; 83690; 84484; 85025; 85610; 85730; 87086; 88307; 93005; 94760; 96361; 96374; 96375; 96376; 99285

== ENCOUNTER → 2019-03-31 | Outpatient (CLI) | payer OTHER ==
--- NOTE | 2019-03-31 10:37 | US ---
EXAMINATION TYPE: US abdomen complete DATE OF EXAM: 03/31/2019 COMPARISON: NONE CLINICAL HISTORY: 78-year-old male K85.90 Pancreatitis. TECHNIQUE: Multiple sonographic images of the abdomen are obtained. FINDINGS: EXAM MEASUREMENTS: Liver Length: 14.3 cm Gallbladder Wall: 1.5 mm CBD: 2.9 mm Spleen: 10.0 cm Right Kidney: 10.1 cm Left Kidney: 10.8 cm Pancreas: Obscured by bowel gas shadowing. Liver: Very slightly echogenic as compared to the adjacent right kidney. This may reflect mild fatty infiltration. Gallbladder: wnl CBD: wnl Spleen: wnl Kidneys: No hydronephrosis on either side Upper IVC: wnl Abd Aorta: wnl IMPRESSION: There may be mild fatty infiltration of the liver. The pancreas is obscured by bowel gas and not assessed by ultrasound. Otherwise, unremarkable sonographic examination of the abdomen.
== END | disposition home or self-care (01) ==
LOC: RADUSWWP 09:45
PROVIDERS: ATTEND Family Medicine
DX: K85.90 Acute pancreatitis without necrosis or infection, unspecified (principal)
CPT/HCPCS: 76700

== ENCOUNTER → 2019-06-26 | Outpatient (CLI) | payer OTHER ==
[2019-06-26 14:28] LABS: African American GFR (CKD) >90 (>60 ml/min/1.73 sqM); Blood Urea Nitrogen 16 mg/dL (9-20)
--- NOTE | 2019-06-28 08:58 | CT ---
EXAMINATION TYPE: CT abdomen wo/w con DATE OF EXAM: 06/26/2019 COMPARISON: 03/11/2019 HISTORY: 78-year-old male Generalized abdominal and pelvic pain. TECHNIQUE: Contiguous axial scanning of the abdomen following administration of 100 ml Isovue 300 IV contrast. Delayed images through the kidneys and coronal/sagittal reconstructions performed. CT DLP: 602.5 mGycm Automated exposure control for dose reduction was used. FINDINGS: Median sternotomy wires. Heart upper limits of normal in size. Redemonstrated large hiatal hernia con taining half the stomach. Retained oral contrast within the herniated portion of the stomach. Chronic interstitial changes in the lower lungs with some patchy groundglass and bronchiectasis similar to p rior. No pleural effusion. No focal liver lesion or biliary ductal dilatation. Portal venous system is patent. Gallbladder, adrenal glands, kidneys, spleen with a tiny anterior splenule, and pancreas appear withi n normal limits. An IVC filter is present. Moderate prostatic calcifications abdominal aorta and iliac arteries with some areas of fusiform dila tation of the infrarenal abdominal aorta but no significant ectasia or aneurysm. No dilated small bowel, free fluid, or free air. Laparotomy incisional scar along the anterior midlin e, new from 03/11/2019 and staple line within right mid to right lower quadrant small bowel loops sugg esting interval bowel resection and reanastomosis. No dilated small bowel, free fluid, or free air. Normal appendix. Scattered mild overall stool burden. Mild circumferential wall thickening of the left hemicolon. No p ericolonic inflammatory change. The pelvis is not imaged. Bones: Degenerative changes lower lumbar spine with grade 1 anterolisthesis L4-L5. IMPRESSION: 1. INTERVAL SURGERY FROM 03/11/2019 WITH PARTIAL SMALL BOWEL RESECTION AND REANASTOMOSIS. 2. PERSISTENT LARGE HIATAL HERNIA INVOLVING NEARLY HALF OF THE STOMACH. PROMINENT RETAINED FLUID WITH IN THE HIATAL HERNIA COULD REFLECT RECENT CONTRAST INGESTION OR POTENTIAL GASTROESOPHAGEAL REFLUX DIS EASE. 3. STABLE BIBASILAR INTERSTITIAL CHANGES WITH BRONCHIECTASIS. QUERY CHRONIC POSTINFLAMMATORY SEQUELA, FIBROSIS, OR INTERSTITIAL PNEUMONITIS SUCH NSIP. 4. MILD CIRCUMFERENTIAL WALL THICKENING OF THE VISUALIZED LEFT HEMICOLON MAY RELATE TO UNDERDISTENTIO N OR NONSPECIFIC MILD COLITIS. CLINICALLY CORRELATE.
== END ==
LOC: RADCTMAIN 13:48
PROVIDERS: ATTEND Physician Assistant Medical
DX: R10.9 Unspecified abdominal pain (principal); K44.9 Diaphragmatic hernia without obstruction or gangrene; J47.9 Bronchiectasis, uncomplicated
CPT/HCPCS: 82565; 84520; 74170; 36415; Q9967 ×2

== ENCOUNTER → 2019-07-04 | Outpatient (CLI) | payer OTHER ==
--- NOTE | 2019-07-05 11:14 | MR ---
EXAMINATION TYPE: MR brain wo/w con DATE OF EXAM: 07/05/2019 COMPARISON: CT brain 08/29/2016 HISTORY: Weakness, memory loss TECHNIQUE: Multiplanar, multisequence images of the brain and brainstem is performed without and with IV contras t, utilizing 6 mL intravenous Gadavist . FINDINGS: Diffusion weighted images demonstrate no evidence of a recent infarct or other diffusion ab normality. There is mild to moderate generalized degenerative change. Changes of chronic sinusitis ar e noted. Both confluent and numerous focal areas of abnormal signal the white matter are seen. Findin gs are nonspecific. Midline structures demonstrate normal morphology. The craniocervical junction appears within normal limits. Post contrast images demonstrate no abnormal enhancement. The dural venous sinuses appear pa tent. Changes of chronic sinusitis noted. Partially empty sella turcica noted. IMPRESSION: 1. 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
== END | disposition home or self-care (01) ==
LOC: RADMRIMAIN 09:30
DX: R90.89 Other abnormal findings on diagnostic imaging of central nervous system (principal); Z88.8 Allergy status to other drugs, medicaments and biological substances
CPT/HCPCS: 70553; A9585

== ENCOUNTER 2019-08-21 08:00 | Day surgery (SDC) | payer OTHER ==
[2019-08-18 09:23] VITALS: BMI 20.9
[~2019-08-21 08:00] MED LIST changes: +LACTATED RINGERS 1,000 ML IV SCH; +MOXIFLOXACIN HCL 0.5% DROPS 3 ML BTL OP ONE; +PILOCARPINE 2% OPHTH DROPS 15 ML BTL LEFT EYE ONE; +TETRACAINE 0.5% OPHTH (PF) DROPS 4 ML BTL OP ONE; -ceFAZolin IN SWFI 2 GM/20 ML SYRINGE IVP ONE
[2019-08-21] MEDS ORDERED: METOPROLOL SUCCINATE (ER) 25 MG TAB.ER.24H PO STA (08:37)
[2019-08-21] MEDS ORDERED: LIDOCAINE 1% 20 ML VIAL (10MG/ML) FOR IV START INTRADERMA ONE (08:51)
[2019-08-21 08:56] LABS: Glucose,Whole Blood 96 mg/dL (75-99)
[2019-08-21 09:05] VITALS: TEMP 98
[2019-08-21] MEDS ORDERED: fentaNYL (PF) 50 MCG/ML 2 ML AMP ONE (09:28)
[2019-08-21] MEDS ORDERED: MIDAZOLAM 2 MG/2 ML VIAL ONE (09:28)
[2019-08-21] MEDS ORDERED: BALANCED SALT IRRIG SOLN COMB2 15 ML IRRIG.SOLN IRRIGATION ONE (09:46)
[2019-08-21] MEDS ORDERED: TRYPAN BLUE 0.06% SYRINGE 0.5 ML SYRINGE MISCELLANE ONE (09:47)
[2019-08-21] MEDS ORDERED: HYALURONATE SODIUM INTRAOCULAR 1 EACH SYRINGE (12MG/ML) INTRAOCULA ONE (09:48)
[2019-08-21] MEDS ORDERED: MOXIFLOXACIN HCL 0.5% DROPS 3 ML BTL LEFT EYE ONE (09:49)
[2019-08-21] MEDS ORDERED: TIMOLOL 0.5% OPHTH DROPS 5 ML BTL LEFT EYE ONE (10:51)
--- NOTE | 2019-08-21 10:56 | P.OP ---
Date of Procedure: 08/21/19 Preoperative Diagnosis: Fuch's dystrophy Postoperative Diagnosis: same Procedure(s) Performed: DMEK, OS Anesthesia: MAC Surgeon: Eleuterio Peoples Estimated Blood Loss (ml): 0 Pathology: none sent Condition: stable Disposition: same day Indications for Procedure: corneal edema Operative Findings: No complications
[2019-08-21 11:38] VITALS: BP 135/68; PULSE 77; RESP 18
--- NOTE | 2019-08-22 06:25 | OP ---
OPERATIVE REPORT PROCEDURE: Descemet's membrane endothelial keratoplasty of the left eye. PREOPERATIVE DIAGNOSIS: Fuchs' corneal dystrophy. POSTOPERATIVE DIAGNOSIS: Fuchs' corneal dystrophy. SURGEON: Dr. Eleuterio Peoples. ANESTHESIA: Topical. ESTIMATED BLOOD LOSS: None. SPECIMEN TAKEN: None. NARRATIVE: After obtaining the appropriate consent, the patient was brought to the operating room. There, he was placed under cardiac monitoring, prepped and draped in the usual sterile manner. Using an 8.25 mm Liliya trephine, this was placed centrally on the patient's cornea and outlined subsequently with Gentian jeanette. This was followed by creation of 4 paracenteses in each of the diagonal quadrants with an MVR blade. Xylocaine MPF 50:50 mix with balanced salt solution was injected into the anterior chamber. This was followed by Trypan Blue which was injected into the anterior chamber and left in place for approximately 3 minutes. Once this was accomplished, the Trypan was then irrigated away and the anterior chamber was then stabilized with Amvisc. At the 3 o'clock position a 2.5 mm keratome was used to create a self-sealing corneal flap incision. A Beatty tube was brought to the field to confirm the width of the opening and the internal portion of this 2.5 mm was enlarged slightly with the keratome. At this point, outlining of the 8.25 hussein on the patient's cornea from the endothelial side with a Blood-Evelineey hook was used to begin to loosen Descemet's membrane. When it appeared that the majority of the tissue was becoming sufficiently loose a Descemet's membrane stripper was then used to remove the balance of the endothelium within the 8.25 diameter central area. A couple remnant tags were identified and additionally removed and then the anterior chamber was completely irrigated of all viscoelastic material and left partially deflated with balanced salt solution. The donor tissue identified as [id number] was confirmed in paperwork and was brought to the field. This donor tissue within the Beatty tube was then injected within the anterior chamber without any difficulty. The temporal incision was then closed with a single 10- 0 nylon suture in an X fashion. At this stage, manipulation of the endothelium, laid the tissue out in its proper orientation and centrally within the area of strips Descemet's tissue. A small air bubble from one of paracenteses was injected to buoy the tissue into place. This was followed by installation of 20% SF6 bringing the patient's eye to approximately 45 mmHg and this was left in place for approximately 20 minutes. After sufficient dwell time, the portion of the gas was removed and balanced salt solution was injected to create an air-fluid interface and the last step was to increase the pressure in the eye sufficiently that the gas bubble would remain effective. At this stage, the patient received moxifloxacin as well as 0.5% timolol drops to the eye and was then shielded and returned to the recovery area to remain for an additional hour. At the end of that period of time, the patient was examined under the slit lamp. Corneal tissue was in a good position with approximately a 60% gas bubble within the anterior chamber. He was at that time given instructions on how to handle the tissue and his drop regimen. There were no complications during the course of the procedure. He tolerated the procedure well and was then subsequently returned home in good condition. MMJATIN / DEANNE: [id number] / TOREY
== END 2019-08-21 12:10 | disposition home or self-care (01) ==
LOC: OR 08:00
PROVIDERS: ATTEND Ophthalmology
DX: H18.51 Endothelial corneal dystrophy (principal); H40.832 Aqueous misdirection, left eye; H18.20 Unspecified corneal edema; H52.223 Regular astigmatism, bilateral; H52.4 Presbyopia; Z96.1 Presence of intraocular lens; R41.3 Other amnesia; E11.9 Type 2 diabetes mellitus without complications; I51.9 Heart disease, unspecified; Z79.02 Long term (current) use of antithrombotics/antiplatelets; Z79.82 Long term (current) use of aspirin; Z79.899 Other long term (current) drug therapy; H91.90 Unspecified hearing loss, unspecified ear; M19.90 Unspecified osteoarthritis, unspecified site; D64.9 Anemia, unspecified; Z88.8 Allergy status to other drugs, medicaments and biological substances; I25.10 Atherosclerotic heart disease of native coronary artery without angina pectoris; I10 Essential (primary) hypertension; E78.5 Hyperlipidemia, unspecified; R06.02 Shortness of breath; R05 Cough; G25.81 Restless legs syndrome; K21.9 Gastro-esophageal reflux disease without esophagitis; Z95.1 Presence of aortocoronary bypass graft; Z90.49 Acquired absence of other specified parts of digestive tract; Z95.5 Presence of coronary angioplasty implant and graft; R63.4 Abnormal weight loss; Z97.2 Presence of dental prosthetic device (complete) (partial)
CPT/HCPCS: 87070; 87205; 87075; 65756; V2785; J2250; J3010

== ENCOUNTER 2019-12-14 14:15 | Emergency (ER) | payer OTHER ==
[2019-12-14 14:20] VITALS: BP 140/81; PULSE 91; RESP 18; TEMP 97.6
[2019-12-14] MEDS ORDERED: MORPHINE SULFATE 4 MG/ML SYRINGE IVP STA (14:52)
[2019-12-14 15:23] LABS: Anisocytosis Slight; Basophils % (A) 0 %; Eosinophils # (A) 0.1 k/uL (0-0.7); Eosinophils % (A) 1 %; HCT 37.3 % (39.0-53.0); HGB 11.8 gm/dL (13.0-17.5); Hypochromasia Slight; Lymphocytes # (A) 1.6 k/uL (1.0-4.8); Lymphocytes % (A) 25 %; MCH 24.7 pg (25.0-35.0); MCHC 31.7 g/dL (31.0-37.0); MCV 77.9 fL (80.0-100.0); Microcytosis Slight; Monocytes # (A) 0.5 k/uL (0-1.0); Monocytes % (A) 7 %; Neutrophils % (A) 62 %; Platelet Count 229 k/uL (150-450); RBC 4.79 m/uL (4.30-5.90); RDW 16.7 % (11.5-15.5); WBC 6.5 k/uL (3.8-10.6)
[2019-12-14 15:27] LABS: ALT 25 U/L (4-49); AST 39 U/L (17-59); African American GFR (CKD) >90 (>60 ml/min/1.73 sqM); Albumin 4.1 g/dL (3.5-5.0); Alkaline Phosphatase 74 U/L (38-126); Anion Gap 7 mmol/L; Blood Urea Nitrogen 15 mg/dL (9-20); Calcium 9.1 mg/dL (8.4-10.2); Carbon Dioxide 29 mmol/L (22-30); Chloride 99 mmol/L (98-107); Glucose 102 mg/dL (74-99); Non-African American GFR(CKD) 85 (>60 ml/min/1.73 sqM); Potassium 4.6 mmol/L (3.5-5.1); Sodium 135 mmol/L (137-145); Total Bilirubin 0.7 mg/dL (0.2-1.3); Total Protein 7.4 g/dL (6.3-8.2)
--- NOTE | 2019-12-14 15:40 | ED ---
General Adult HPI - General Source: patient, RN notes reviewed Mode of arrival: ambulatory Limitations: no limitations <Isaac Crocker - Last Filed: 12/14/19 17:06> <Savannah Fine - Last Filed: 12/19/19 01:05> - General Chief complaint: Fall Stated complaint: possible cracked ribs Time Seen by Provider: 12/14/19 14:25 - History of Present Illness Initial comments: 79-year-old male with a past medical history of CAD, diabetes mellitus, GERD, hyperlipidemia, hypertension presents to the emergency department for a chief complaint of left sided rib pain. This is been ongoing for the past 4 days. Patient states that he was standing on a ladder and his feet were about 3 feet off the ground. States that he fell sideways onto his left ribs. He did not hit his head. He does not have a headache. He denies neck pain. However he does have left rib pain in the sided upper abdominal pain. This worsens with movement. States he thought it would get better but it is not. Patient denies any other symptoms. Patient has been ambulatory and caring for himself at home.Patient has no other complaints at this time including shortness of breath, chest pain, abdominal pain, nausea or vomiting, headache, or visual changes. (Isaac Crocker) - Related Data Home Medications Medication Instructions Recorded Confirmed Aspirin 81 mg PO HS 05/23/15 08/21/19 Atorvastatin [Lipitor] 80 mg PO HS 05/23/15 08/21/19 Metoprolol Succinate [Toprol XL] 25 mg PO QAM 05/23/15 08/21/19 Omeprazole 20 mg PO HS 05/23/15 08/21/19 Clopidogrel [Plavix] 75 mg PO DAILY 02/14/19 08/21/19 Glucosamine-Chondr 500-400Mg 1 tab PO BID 02/14/19 08/21/19 Multivitamins, Thera [Multivitamin 1 tab PO DAILY 02/14/19 08/21/19 (formulary)] Naproxen Sodium [Aleve] 220 mg PO BID PRN 02/14/19 08/21/19 [place]-3 Fatty Acids/Fish Oil [Fish 1 cap PO BID 02/14/19 08/21/19 Oil 1,000 mg Softgel] Previous Rx's Medication Instructions Recorded Acetaminophen Tab [Tylenol] 1,000 mg PO Q6HR PRN tab 02/17/19 HYDROcodone/APAP 5-325MG [[place] 1 tab PO Q6HR PRN #11 tab 12/14/19 5-325] Lidocaine 5% Patch [Lidoderm 5% 1 patch TOPICAL DAILY PRN 5 Days 12/14/19 Patch] #5 patch Allergies Allergy/AdvReac Type Severity Reaction Status Date / Time heparin AdvReac caused Verified 12/14/19 14:20 blood clotting Review of Systems ROS Other: All systems not noted in ROS Statement are negative. <Isaac Crocker P - Last Filed: 12/14/19 17:06> ROS Other: All systems not noted in ROS Statement are negative. <Savannah Fine - Last Filed: 12/19/19 01:05> ROS Statement: Those systems with pertinent positive or pertinent negative responses have been documented in the HPI. Past Medical History Past Medical History: Coronary Artery Disease (CAD), Diabetes Mellitus, GERD/Reflux, Hyperlipidemia, Hypertension, Osteoarthritis (OA), Respiratory Disorder Additional Past Medical History / Comment(s): RLS, SOB w/exertion, weight loss, cough started in Aug., diet controlled diabetic, has hiatal hernia,twisted bowel History of Any Multi-Drug Resistant Organisms: None Reported Past Surgical History: Bowel Resection, Coronary Bypass/CABG, Heart Catheterizat ion With Stent, Tonsillectomy Additional Past Surgical History / Comment(s): quadruple bypass 2009 Past Anesthesia/Blood Transfusion Reactions: No Reported Reaction Date of Last Stent Placement:: 2010 Past Psychological History: No Psychological Hx Reported Smoking Status: Never smoker - Past Family History Father Family Medical History: Congestive Heart Failure (CHF) Additional Family Medical History / Comment(s): Parkinson <Isaac Crocker P - Last Filed: 12/14/19 17:06> General Exam Limitations: no limitations General appearance: alert, in no apparent distress Head exam: Present: atraumatic, normocephalic, normal inspection Eye exam: Present: normal appearance, PERRL, EOMI. Absent: scleral icterus, conjunctival injection, periorbital swelling ENT exam: Present: normal exam, mucous membranes moist Neck exam: Present: normal inspection, full ROM. Absent: tenderness, meningismus, lymphadenopathy Respiratory exam: Present: normal lung sounds bilaterally, chest wall tenderness (Patient has left-sided lateral lower rib tenderness with minimal ecchymosis.). Absent: respiratory distress, wheezes, rales, rhonchi, stridor Cardiovascular Exam: Present: regular rate, normal rhythm, normal heart sounds. Absent: systolic murmur, diastolic murmur, rubs, gallop, clicks GI/Abdominal exam: Present: soft, tenderness (Minimal left upper quadrant tenderness without ecchymosis. Negative lele sign.), normal bowel sounds. Absent: distended, guarding, rebound, rigid Extremities exam: Present: other (Patient is moving all extremities. No signs of trauma.) Back exam: Absent: vertebral tenderness (No thoracic or lumbar spine tenderness) Neurological exam: Present: alert, oriented X3, CN II-XII intact, normal gait <Isaac Crocker P - Last Filed: 12/14/19 17:06> Course Vital Signs 12/14/19 14:17 Temperature 97.6 F Pulse Rate 91 Respiratory 18 Rate Blood Pressure 140/81 O2 Sat by Pulse 98 Oximetry Medical Decision Making - Lab Data Result diagrams: 12/14/19 15:10 12/14/19 15:10 <Isaac Crocker - Last Filed: 12/14/19 17:06> - Lab Data Result diagrams: 12/14/19 15:10 12/14/19 15:10 <Savannah Fine - Last Filed: 12/19/19 01:05> - Medical Decision Making Vitals are stable. Physical exam as documented in pertinent for left-sided rib tenderness and minimal associated ecchymosis. Patient has chronic microcytic anemia with a stable hemoglobin of 11.8. CMP unremarkable. CT abdomen and pelvis with contrast shows nondisplaced acute fracture of the anterior margin of ribs 8 through 10 on the left. There is a redemonstration of the partial intrathoracic stomach with new diffuse gastric wall thickening. No pneumoperitoneum, pneumothorax, or free fluid in the pelvis. I discussed all these findings with patient. I did recommend he follow-up with his primary care provider for possible scope as well as to review all other findings in CAT scan. Patient was given morphine and lidocaine patch and actually had improvement in symptoms. He is indicating around the exam room. He dressed without difficulty. Pain is controlled. Patient will be prescribed [place]. I discussed not driving while taking this and risk of falls which he is aware of. He was also given lidocaine patches. He will follow up with primary care in 1-2 days for recheck. He will return for any worsening symptoms. I also discussed increased risk of pneumonia with rib fractures. Patient has an incentives primary home. I discussed using this 10 times every hour while awake and he is in agreement. He is aware to return if he developed cough or fever.I discussed this case with attending Dr. Fine who agrees with this assessment and treatment plan. Patient has a ride home. (Isaac Crocker) I was available for consultation in the emergency department. The history and physical exam were done by the midlevel provider. I was consulted for this patients care. I reviewed the case with the midlevel provider and based on their presentation of the patient, I agree with the assessment, medical decision making and plan of care as documented. Chart was dictated using [employer] dictation software. Attempts were made to correct any dictation errors however some typographical errors may persist. (Savannah Fine) - Lab Data Lab Results 12/14/19 12/14/19 Range/Units 15:10 15:10 WBC 6.5 (3.8-10.6) k/uL RBC 4.79 (4.30-5.90) m/uL Hgb 11.8 L (13.0-17.5) gm/dL Hct 37.3 L (39.0-53.0) % MCV 77.9 L (80.0-100.0) fL MCH 24.7 L (25.0-35.0) pg MCHC 31.7 (31.0-37.0) g/dL RDW 16.7 H (11.5-15.5) % Plt Count 229 (150-450) k/uL Neutrophils % 62 % Lymphocytes % 25 % Monocytes % 7 % Eosinophils % 1 % Basophils % 0 % Neutrophils # 4.0 (1.3-7.7) k/uL Lymphocytes # 1.6 (1.0-4.8) k/uL Monocytes # 0.5 (0-1.0) k/uL Eosinophils # 0.1 (0-0.7) k/uL Basophils # 0.0 (0-0.2) k/uL Hypochromasia Slight Anisocytosis Slight Microcytosis Slight Sodium 135 L (137-145) mmol/L Potassium 4.6 (3.5-5.1) mmol/L Chloride 99 (98-107) mmol/L Carbon Dioxide 29 (22-30) mmol/L Anion Gap 7 mmol/L BUN 15 (9-20) mg/dL Creatinine 0.82 (0.66-1.25) mg/dL Est GFR (CKD-EPI)AfAm >90 (>60 ml/min/1.73 sqM) Est GFR (CKD-EPI)NonAf 85 (>60 ml/min/1.73 sqM) Glucose 102 H (74-99) mg/dL Calcium 9.1 (8.4-10.2) mg/dL Total Bilirubin 0.7 (0.2-1.3) mg/dL AST 39 (17-59) U/L ALT 25 (4-49) U/L Alkaline Phosphatase 74 (38-126) U/L Total Protein 7.4 (6.3-8.2) g/dL Albumin 4.1 (3.5-5.0) g/dL Disposition Is patient prescribed a controlled substance at d/c from ED?: Yes When asked, does pt state using other controlled substances?: No If prescribed controlled substance>3 days was MAPS reviewed?: Prescribed <3 Days If opioid is for acute pain is fill amount 7 days or less?: Yes If Rx opioid, was Start Talking consent form obtained?: Yes Time of Disposition: 17:06 <Isaac Crocker P - Last Filed: 12/14/19 17:06> <Savannah Fine - Last Filed: 12/19/19 01:05> Clinical Impression: Rib fractures Disposition: HOME SELF-CARE Condition: Good Instructions (If sedation given, give patient instructions): Rib Fracture (ED) Additional Instructions: Please take [place] for pain. Do not drive or operate machinery while taking this and remember there is an increased risk of falling. Use lidocaine patches as directed. Apply one for 12 hours, remove for 12 hours, and then reapply another for 12 hours. Use incentive spirometer 10 times every hour while awake to prevent pneumonia. If you develop a cough or fever return to the emergency department as you may have developed pneumonia. Otherwise follow-up with your primary care provider in the next few days to review CAT scan results and for a recheck. Prescriptions: Lidocaine 5% Patch [Lidoderm 5% Patch] 1 patch TOPICAL DAILY PRN 5 Days #5 patch PRN Reason: Pain HYDROcodone/APAP 5-325MG [[place] 5-325] 1 tab PO Q6HR PRN #11 tab PRN Reason: Pain Referrals: Kevin Gann MD [Primary Care Provider] - 1-2 days
--- NOTE | 2019-12-14 16:23 | CT ---
EXAMINATION TYPE: CT ChestAbdPelvis w con DATE OF EXAM: 12/14/2019 COMPARISON: CT abdomen pelvis dated 06/26/2019 HISTORY: Left sided rib pain after fall from ladder. Abdominal and pelvic pain. CT DLP: 810.1 mGycm. Automated Exposure Control for Dose Reduction was Utilized. CONTRAST: CT scan of the thorax, abdomen and pelvis is performed with IV Contrast, patient injected with 100 mL of Isovue 300. FINDINGS: LUNGS: Peripheral fibrosis is seen within the lungs with multifocal dependent airspace disease, likel y atelectasis. No pneumothorax is seen. Calcified pleural plaque of the posterior right lower lung. M otion artifact limits examination. Persistent cylindrical bronchiectasis. Very trace amount of left p leural fluid medially. 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 The stomach now appears grossly thick ened, which is a new finding from the prior. There are no greater than 1 cm hilar or mediastinal lymph nodes. The heart is enlarged. No pericardia l effusion identified. Severe coronary artery calcifications and post CABG change. Moderate atheroscl erosis of the thoracic aorta. LIVER/GB: No significant abnormality is appreciated. No radiopaque calculi in the gallbladder. PANCREAS: No ductal dilatation. SPLEEN: No significant abnormality is seen. No spinal megaly. ADRENALS: No nodule or thickening. KIDNEYS: Kidneys enhance symmetrically without hydronephrosis. BOWEL: Anastomotic site is seen in the sigmoid colon no proximal dilatation to suggest anastomotic st ricture. Descending colon is decompressed. Severe fecal stasis of the cecum. GENITAL ORGANS: Prostate gland is enlarged and slightly heterogenous. Prostate gland measures 5.2 cm LYMPH NODES: No greater than 1cm abdominal or pelvic lymph nodes are appreciated. OSSEOUS STRUCTURES: Old healed fracture of the posterior right 12th rib. Nondisplaced acute fracture of the anterolateral margin of ribs 8 through 10 on the left. Mild multilevel degenerative change of the spine most severe at L5-S1 with vacuum disc phenomenon. OTHER: Inferior vena cava filter seen. Extensive atherosclerosis of the abdominal aorta and its branc hes. Terminal aorta is tortuous in course. IMPRESSION: 1. Nondisplaced acute fractures of the anterior margin of ribs 8 through 10 on the left. 2. Redemonstration of the partial intrathoracic stomach with new diffuse gastric wall thickening. 3. No pneumoperitoneum, no pneumothorax, and no free fluid in the pelvis. 4. Redemonstration of pulmonary fibrosis and multifocal atelectasis.
[2019-12-14] MEDS ORDERED: LIDOCAINE 5% PATCH TOPICAL STA (17:03)
== END 2019-12-14 17:15 | disposition home or self-care (01) ==
LOC: EC 14:15
DX: S22.42XA Multiple fractures of ribs, left side, initial encounter for closed fracture (principal); I25.10 Atherosclerotic heart disease of native coronary artery without angina pectoris; I10 Essential (primary) hypertension; E78.5 Hyperlipidemia, unspecified; E11.9 Type 2 diabetes mellitus without complications; K21.9 Gastro-esophageal reflux disease without esophagitis; Z79.82 Long term (current) use of aspirin; Z79.899 Other long term (current) drug therapy; Z79.02 Long term (current) use of antithrombotics/antiplatelets; Z88.8 Allergy status to other drugs, medicaments and biological substances; Z95.1 Presence of aortocoronary bypass graft; W11.XXXA Fall on and from ladder, initial encounter
CPT/HCPCS: 36415; 80053; 85025; 71260; 74177; 99284; 96374; J2270; Q9967

== ENCOUNTER 2021-03-05 10:08 | Day surgery (SDC) | payer MEDICARE, OTHER ==
[2021-03-04 12:55] VITALS: BMI 20.9
[~2021-03-05 10:08] MED LIST changes: -LACTATED RINGERS 1,000 ML IV SCH; -MOXIFLOXACIN HCL 0.5% DROPS 3 ML BTL OP ONE; +MOXIFLOXACIN HCL 0.5% DROPS 3 ML BTL OP PRN; -PILOCARPINE 2% OPHTH DROPS 15 ML BTL LEFT EYE ONE; -TETRACAINE 0.5% OPHTH (PF) DROPS 4 ML BTL OP ONE; +TOBRA-DEXAMET 0.3-0.1% OPHTH DROPS 2.5 ML BTL OPHTHALMIC PRN
[2021-03-05 10:38] VITALS: RESP 16; TEMP 97.7
[2021-03-05] MEDS: PILOCARPINE 2% OPHTH DROPS 15 ML BTL OP PRN ×3 (10:43→10:53)
[2021-03-05 10:51] LABS: Glucose,Whole Blood 100 mg/dL (75-99)
[2021-03-05] MEDS ORDERED: LACTATED RINGERS 1,000 ML IV ONE (10:53)
[2021-03-05] MEDS ORDERED: MIDAZOLAM 2 MG/2 ML VIAL ONE (11:46)
[2021-03-05] MEDS ORDERED: fentaNYL (PF) 50 MCG/ML 2 ML AMP ONE (11:46)
[2021-03-05] MEDS ORDERED: BALANCED SALT IRRIG SOLN COMB2 500 ML IRRIGATION ONE (12:15)
[2021-03-05] MEDS ORDERED: ATROPINE OPHTH SOLN 1% 2 ML BTL RIGHT EYE ONE (12:16)
[2021-03-05] MEDS ORDERED: BALANCED SALT IRRIG SOLN COMB2 15 ML IRRIG.SOLN IRRIGATION ONE (12:16)
[2021-03-05] MEDS ORDERED: TRYPAN BLUE 0.06% SYRINGE 0.5 ML SYRINGE MISCELLANE ONE (12:17)
--- NOTE | 2021-03-05 13:15 | P.OP ---
Date of Procedure: 03/05/21 Preoperative Diagnosis: endothelial dystrophy Postoperative Diagnosis: same Procedure(s) Performed: DMEK, OD Anesthesia: MAC Surgeon: Eleuterio Peoples Pathology: none sent Condition: stable Disposition: same day Indications for Procedure: corneal edema Operative Findings: no complications
[2021-03-05 14:36] VITALS: BP 133/81; PULSE 77
--- NOTE | 2021-03-07 06:18 | OP ---
OPERATIVE REPORT DATE OF SURGERY: 03/05/2021 PROCEDURE: Descemet's membrane and endothelial keratoplasty of the right eye. PREOPERATIVE DIAGNOSIS: Fuchs' endothelial corneal dystrophy. POSTOPERATIVE DIAGNOSIS: Fuchs' endothelial corneal dystrophy. SURGEON: Dr. Eleuterio Peoples. ANESTHESIA: Topical. ESTIMATED BLOOD LOSS: None. SPECIMEN: Taken. NARRATIVE: After obtaining the appropriate consent, the patient was brought to the operating room. There he was placed under cardiac monitoring, prepped and draped in usual sterile manner. He was approached from the temporal side and in the 4 diagonal quadrants an MVR blade was used to create a paracentesis port. Through this opening 1% Xylocaine MPF 50:50 mix of balanced salt solution was injected into the anterior chamber. This was followed by installation of Trypan blue which was left in place for 3 minutes. This was then irrigated away with balanced salt solution and the anterior chamber was then stabilized using Amvisc. At the 9 o'clock position, a 2.75 mm keratome was used to create a self-sealing corneal flap incision. The internal opening was adjusted slightly to allow for a Beatty tube. An 8.25 mm Liliya trephine was placed on the patient's cornea prior to the paracenteses and this ring was marked with Gentian jeanette. Using a Blood Sinskey hook, the underside of the cornea was then scored within the boundaries of the 8.25 diameter hussein. Descemet's membrane was then from the patient's host cornea and all of the Descemet's membrane within this ring was removed and confirmed totally removed from the stromal bed. The viscoelastic was then removed under irrigation and aspiration along with more thorough than normal removal techniques. The donor tissue was then brought to the back table and confirmed. The tissue identified from [facility]. Tissue identifier was [id number]. This was placed in a Trina dish of balanced salt solution and a 3 mL syringe filled with balanced salt solution was attached to the prepared tissue. The donor tissue was then carefully brought to the patient's eye and was injected into the anterior chamber without difficulty. The temporal incision was tamponade slightly and using a single 10- 0 nylon suture, the temporal incision was closed and watertight. Using various techniques to maintain the appropriate depth of the anterior chamber, the donor tissue was then unfolded with the stromal side identified as up and a small air bubble was then used to buoy the tissue into place once properly centered. The eye was then filled with SF6 to approximately 5 mmHg and was left in the patient's eye for approximately 15 minutes. Care was taken to ensure that the patient still appreciated light from the microscope light above. After the 15 minutes dwell time, the excess SF6 was removed and replaced with balanced salt solution leaving approximately a 50% SF6 gas bubble within the anterior chamber. The patient then received 2 drops of 0.5% moxifloxacin, 2 drops of 0.5% timolol and 2 drops of 1% atropine. He was left in the supine position and taken to recovery to allow additional time for the gas bubble to hold the donor tissue into its proper position. After that hours' time, the patient was examined with confirmation of good positioning and was released to home in good condition. JOSUÉ / DEANNE: [id number] /
== END 2021-03-05 15:22 | disposition home or self-care (01) ==
LOC: OR 10:08
PROVIDERS: ATTEND Ophthalmology
DX: H18.519 Endothelial corneal dystrophy, unspecified eye (principal); H18.20 Unspecified corneal edema; H52.223 Regular astigmatism, bilateral; H52.4 Presbyopia; Z96.1 Presence of intraocular lens; Z98.890 Other specified postprocedural states; Z94.7 Corneal transplant status; I25.10 Atherosclerotic heart disease of native coronary artery without angina pectoris; I10 Essential (primary) hypertension; E78.5 Hyperlipidemia, unspecified; J44.9 Chronic obstructive pulmonary disease, unspecified; Z99.81 Dependence on supplemental oxygen; K21.9 Gastro-esophageal reflux disease without esophagitis; Z97.2 Presence of dental prosthetic device (complete) (partial); Z90.49 Acquired absence of other specified parts of digestive tract; Z95.1 Presence of aortocoronary bypass graft; Z90.89 Acquired absence of other organs; Z79.02 Long term (current) use of antithrombotics/antiplatelets; Z79.82 Long term (current) use of aspirin; Z79.899 Other long term (current) drug therapy; Z88.8 Allergy status to other drugs, medicaments and biological substances
CPT/HCPCS: 87070; 87205; 87075; 65756; V2785; J2250; J3010

== ENCOUNTER 2021-07-31 18:53 | Emergency (ER) | payer OTHER ==
[2021-07-31 19:37] VITALS: BP 149/90; PULSE 100; RESP 18; TEMP 98.5
--- NOTE | 2021-07-31 19:52 | ED ---
ENT HPI - General Chief complaint: ENT Stated complaint: hearing aide stuck Source: patient Mode of arrival: ambulatory Limitations: no limitations - History of Present Illness Initial comments: 80-year-old male presents emergency Department with report that his hearing aid is stuck in his right ear. Reports that it got stuck approximately 2 hours prior to hospital arrival. Attempted to retrieve it however when he could not he decided to come to the emergency room for evaluation. Denies any hearing changes. No other alleviating, precipitating or modifying factors - Related Data Home Medications Medication Instructions Recorded Confirmed Aspirin 81 mg PO HS 05/23/15 03/05/21 Atorvastatin [Lipitor] 80 mg PO HS 05/23/15 03/05/21 Metoprolol Succinate [Toprol XL] 25 mg PO QAM 05/23/15 03/05/21 Omeprazole 20 mg PO HS 05/23/15 03/05/21 Clopidogrel [Plavix] 75 mg PO DAILY 02/14/19 03/05/21 Glucosamine-Chondr 500-400Mg 1 tab PO DIRECTED 02/14/19 03/05/21 Acetaminophen Tab [Tylenol] 500 - 1,000 mg PO Q6HR PRN 03/04/21 03/05/21 Anastrozole [Arimidex] 1 mg PO BID 03/04/21 03/05/21 Carboxymethylcellulose Sodium 1 drop LEFT EYE DIRECTED 03/04/21 03/05/21 [Refresh Tears] Nitroglycerin 0.4 mg SL DIRECTED PRN 03/04/21 03/05/21 Sodium Chloride 5% Ophth Soln 1 drops RIGHT EYE TID 03/04/21 03/05/21 [Yaritza 128] Testosterone Injection 200mg/M 1 ml INJ Q14D 03/04/21 03/05/21 Allergies Allergy/AdvReac Type Severity Reaction Status Date / Time heparin AdvReac caused Verified 07/31/21 19:35 blood clotting Review of Systems ROS Statement: Those systems with pertinent positive or pertinent negative responses have been documented in the HPI. ROS Other: All systems not noted in ROS Statement are negative. Past Medical History Past Medical History: Coronary Artery Disease (CAD), COPD, Diabetes Mellitus, Eye Disorder, GERD/Reflux, Hearing Disorder / Deafness, Hyperlipidemia, Hypertension, Osteoarthritis (OA), Respiratory Disorder Additional Past Medical History / Comment(s): RLS, SOB w/exertion, hx wgt loss, chronic cough. diet controlled diabetic, has hiatal hernia; "poss mesothelioma," uses O2 prn, unsure of dose. Rt eye prob. Hearing aids. History of Any Multi-Drug Resistant Organisms: None Reported Past Surgical History: Bowel Resection, Coronary Bypass/CABG, Heart Catheterization With Stent, Tonsillectomy Additional Past Surgical History / Comment(s): Quad CABG 2009. Lt eye cataract 2019. Past Anesthesia/Blood Transfusion Reactions: No Reported Reaction, Motion Sickness Date of Last Stent Placement:: 2010 Past Psychological History: Depression Smoking Status: Never smoker Past Alcohol Use History: None Reported Past Drug Use History: None Reported - Past Family History Father Family Medical History: Congestive Heart Failure (CHF) Additional Family Medical History / Comment(s): Parkinson Mother Family Medical History: Myocardial Infarction ([place]) General Exam Limitations: no limitations Course Vital Signs 07/31/21 19:35 Temperature 98.5 F Pulse Rate 100 Respiratory 18 Rate Blood Pressure 149/90 O2 Sat by Pulse 93 L Oximetry Medical Decision Making - Medical Decision Making Upon arrival patient was placed into ATP room. Ear bud is removed. Patient will be discharged home at this time in stable condition Disposition Clinical Impression: Ear foreign body Disposition: HOME SELF-CARE Condition: Stable Instructions (If sedation given, give patient instructions): Ear Foreign Body (ED) Is patient prescribed a controlled substance at d/c from ED?: No Referrals: [facility],Clinic [Primary Care Provider] - 1-2 days Time of Disposition: 19:51
== END 2021-07-31 20:15 | disposition home or self-care (01) ==
LOC: EC 18:53
DX: T16.1XXA Foreign body in right ear, initial encounter (principal); E11.9 Type 2 diabetes mellitus without complications; I10 Essential (primary) hypertension; I25.10 Atherosclerotic heart disease of native coronary artery without angina pectoris; J44.9 Chronic obstructive pulmonary disease, unspecified; E78.5 Hyperlipidemia, unspecified; M19.90 Unspecified osteoarthritis, unspecified site; F32.9 Major depressive disorder, single episode, unspecified; Z82.49 Family history of ischemic heart disease and other diseases of the circulatory system; Z79.82 Long term (current) use of aspirin; Z79.02 Long term (current) use of antithrombotics/antiplatelets; Z79.899 Other long term (current) drug therapy; W22.8XXA Striking against or struck by other objects, initial encounter
CPT/HCPCS: 69200; 99283

== ENCOUNTER 2022-09-29 15:55 | Inpatient (IN) | payer OTHER, MEDICARE ==
[2022-09-29] MEDS ORDERED: IPRATROPIUM-ALBUTEROL 3 ML NEB INHALATION STA (16:12)
--- NOTE | 2022-09-29 16:14 | ED ---
General Adult HPI - General Chief complaint: Shortness of Breath Stated complaint: MITCHELL Time Seen by Provider: 09/29/22 15:58 Source: patient, EMS, RN notes reviewed Mode of arrival: EMS Limitations: no limitations - History of Present Illness Initial comments: Patient is a pleasant 81-year-old male presenting to the emergency department with concerns with difficulty in breathing. Patient does have a mesothelioma. Patient refused oxygen through his primary care physician despite being on it previously. Patient thought he could be without it however realizes now that he cannot. EMS found patient in the upper 80s oxygen saturation. Patient states he does feel much better since he is on oxygen now. Patient does admit to having mild congestion recently. - Related Data Home Medications Medication Instructions Recorded Confirmed Atorvastatin [Lipitor] 80 mg PO HS 05/23/15 09/29/22 Omeprazole 20 mg PO HS 05/23/15 09/29/22 Glucosamine-Chondr 500-400Mg 1 tab PO DAILY 02/14/19 09/29/22 Nitroglycerin 0.4 mg SL DIRECTED PRN 03/04/21 09/29/22 Meloxicam [Mobic] 7.5 mg PO BID 06/05/22 09/29/22 [place]ir-3/Dha/Epa/Fish Oil [Fish Oil 1,000 mg PO BID 06/05/22 09/29/22 1,000 mg Softgel] Polyvinyl Alcohol/Povidone 1 drop BOTH EYES QID PRN 06/05/22 09/29/22 [Freshkote Eye Drop] Aspirin EC [Ecotrin Low Dose] 81 mg PO HS 09/29/22 09/29/22 Clopidogrel [Plavix] 75 mg PO DIRECTED 09/29/22 09/29/22 Levothyroxine Sodium [Synthroid] 75 mcg PO DIRECTED 09/29/22 09/29/22 Metoprolol Succinate (ER) [Toprol 25 mg PO DIRECTED 09/29/22 09/29/22 Xl] Multivitamins, Thera [Multivitamin 1 tab PO DAILY 09/29/22 09/29/22 (formulary)] Testosterone Cypionate 200 mg IM Q14D 09/29/22 09/29/22 [Depo-Testosterone] Allergies Allergy/AdvReac Type Severity Reaction Status Date / Time heparin AdvReac caused Verified 09/29/22 16:40 blood clotting pravastatin AdvReac muscle pain Verified 09/29/22 16:40 simvastatin [From Zocor] AdvReac muscle pain Verified 09/29/22 16:40 Review of Systems ROS Statement: Those systems with pertinent positive or pertinent negative responses have been documented in the HPI. ROS Other: All systems not noted in ROS Statement are negative. Constitutional: Denies: fever ENT: Reports: congestion Respiratory: Reports: as per HPI, dyspnea Endocrine: Denies: fatigue Genitourinary: Denies: dysuria Past Medical History Past Medical History: Coronary Artery Disease (CAD), COPD, Diabetes Mellitus, Deep Vein Thrombosis (DVT), Eye Disorder, GERD/Reflux, Hearing Disorder / Deafness, Hyperlipidemia, Hypertension, Osteoarthritis (OA), Pulmonary Embolus ([place]), Respiratory Disorder, Thyroid Disorder Additional Past Medical History / Comment(s): RLS, SOB w/exertion, hx wgt loss, chronic cough. diet controlled diabetic, has hiatal hernia; "poss mesothelioma," uses O2 prn, unsure of dose. Rt eye prob. Hearing aids. idopathic pulmonary fibrosis, diet controlled dm dvt x4 had ct scan and lung bx sees dr campos hypothyroid. iron deficiency History of Any Multi-Drug Resistant Organisms: None Reported Past Surgical History: Bowel Resection, Coronary Bypass/CABG, Heart Catheterization With Stent, Tonsillectomy Additional Past Surgical History / Comment(s): Quad CABG 2009. Lt eye cataract 2019. Past Anesthesia/Blood Transfusion Reactions: No Reported Reaction, Motion Sickness Date of Last Stent Placement:: 2010 Smoking Status: Never smoker - Past Family History Father Family Medical History: Congestive Heart Failure (CHF) Additional Family Medical History / Comment(s): Parkinson Mother Family Medical History: Myocardial Infarction ([place]) General Exam Limitations: no limitations General appearance: alert, in no apparent distress Head exam: Present: normocephalic Eye exam: Present: normal appearance Neck exam: Present: normal inspection Respiratory exam: Present: rhonchi Cardiovascular Exam: Present: regular rate, normal rhythm GI/Abdominal exam: Present: soft. Absent: tenderness Extremities exam: Present: normal inspection. Absent: pedal edema, calf tenderness Neurological exam: Present: alert Psychiatric exam: Present: normal affect, normal mood Course Vital Signs 09/29/22 09/29/22 09/29/22 16:00 16:12 17:37 Temperature 98.0 F Pulse Rate 89 90 Respiratory 20 20 Rate Blood Pressure 131/87 O2 Sat by Pulse 96 Oximetry 09/29/22 09/29/22 17:45 18:48 Temperature Pulse Rate 92 93 Respiratory 22 Rate Blood Pressure 148/89 O2 Sat by Pulse 92 L Oximetry EKG Findings - EKG Results: EKG: interpreted by NEVILLE (Nonspecific ST-T), sinus rhythm, normal axis, normal QRS Medical Decision Making - Medical Decision Making Patient presents with hypoxia. There is mildakI. Patient is hyperkalemic. Patient will need oxygen. Chest x-ray questionable for CHF and BNP has been added. This is still pending. Case discussed with Dr. jackson, who will admit for this in patient Was pt. sent in by a medical professional or institution? @ -n Did you speak to anyone other than the patient for history? @ -n Did you review nursing and triage notes? @ -S and agree Were old charts reviewed? @ -n Differential Diagnosis? @ -Differential Dyspnea: Coronary syndrome, arrhythmia, tamponade, asthma, COPD, pulmonary embolism, pneumonia, pneumothorax, pulmonary effusion, anaphylaxis, diabetic ketoacidosis, flailed chest, pulmonary contusion, diaphragmatic rupture, anemia, n euromuscular, this is not meant to be an all-inclusive list. EKG interpreted by me (3pts min.)? @ -y X-rays interpreted by me (1pt min.)? @ -y CT interpreted by me (1pt min.)? @ -[none] U/S interpreted by me (1pt. min.)? @ -[none] What testing was considered but not performed? (CT, X-rays, U/S, labs)? Why? @ [CT, X-rays, U/S, labs? Why?] What meds were considered but not given? Why? @ -Considered diuretic however will wait for BNP testing Did you discuss the management of the patient with other professionals? @ -Case discussed with Dr. garcia who will admit Did you reconcile home meds? @ -if available Was smoking cessation discussed for >3mins.? @ -[none] Was critical care preformed (if so, how long)? @ -y, 35 Were there social determinants of health that impacted care today? How? (Homelessness, low income, unemployed, alcoholism, drug addiction, transportation, low edu. Level, literacy, decrease access to med. care, [place] [facility], rehab)? @ -Patient does not have access to oxygen at home Was there de-escalation of care discussed even if they declined? (Discuss DNR or withdrawal of care, Hospice)? @ -n What co-morbidities impacted this encounter? (DM, HTN, Smoking, COPD, CAD, Cancer, CVA, Hep., AIDS, mental health diagnosis, sleep apnea, morbid obesity)? @ -History of mesothelioma and needs oxygen Was patient admitted / discharged? @ -Admitted Undiagnosed new problem with uncertain prognosis? @ -Exacerbation of mesothelioma, new acute kidney injury Drug Therapy requiring intensive monitoring for toxicity (Heparin, Nitro, Insulin, Cardizem)? @ -[none] Were any procedures done? @ -[none] Diagnosis/symptom? @ -1 exacerbation of mesothelioma. 2 Breanna. 3 hyperkalemia Acute, or Chronic, or Acute on Chronic? @ -1 acute on chronic, 2 acute, 3 acute Uncomplicated (without systemic symptoms) or Complicated (systemic symptoms)? @ -Complicated Side effects of treatment? @ -[none] Exacerbation, Progression, or Severe Exacerbation] @ -Exacerbation of mesothelioma. Poses a threat to life or bodily function? @ -Yes - Lab Data Result diagrams: 09/29/22 16:28 09/29/22 16:28 Lab Results 09/29/22 09/29/22 09/29/22 Range/Units 16:28 16:28 16:28 WBC 9.5 (3.8-10.6) k/uL RBC 5.03 (4.30-5.90) m/uL Hgb 12.3 L (13.0-17.5) gm/dL Hct 38.5 L (39.0-53.0) % MCV 76.5 L (80.0-100.0) fL MCH 24.5 L (25.0-35.0) pg MCHC 32.0 (31.0-37.0) g/dL RDW 18.3 H (11.5-15.5) % Plt Count 245 (150-450) k/uL MPV 9.3 Neutrophils % 82 % Lymphocytes % 10 % Monocytes % 5 % Eosinophils % 1 % Basophils % 1 % Neutrophils # 7.8 H (1.3-7.7) k/uL Lymphocytes # 1.0 (1.0-4.8) k/uL Monocytes # 0.5 (0-1.0) k/uL Eosinophils # 0.1 (0-0.7) k/uL Basophils # 0.0 (0-0.2) k/uL Hypochromasia Moderate Anisocytosis Slight Microcytosis Slight PT 12.2 H (9.0-12.0) sec INR 1.2 H (<1.2) APTT 24.1 (22.0-30.0) sec Sodium 134 L (137-145) mmol/L Potassium 6.0 H (3.5-5.1) mmol/L Chloride 100 (98-107) mmol/L Carbon Dioxide 23 (22-30) mmol/L Anion Gap 11 mmol/L BUN 34 H (9-20) mg/dL Creatinine 1.27 H (0.66-1.25) mg/dL Est GFR (CKD-EPI)AfAm 62 (>60 ml/min/1.73 sqM) Est GFR (CKD-EPI)NonAf 53 (>60 ml/min/1.73 sqM) Glucose 106 H (74-99) mg/dL Lactic Ac Sepsis Rflx Plasma Lactic Acid Vladimir (0.7-2.0) mmol/L Calcium 8.4 (8.4-10.2) mg/dL Total Bilirubin 1.1 (0.2-1.3) mg/dL AST 49 (17-59) U/L ALT 29 (4-49) U/L Alkaline Phosphatase 87 (38-126) U/L Total Protein 7.2 (6.3-8.2) g/dL Albumin 3.8 (3.5-5.0) g/dL Coronavirus (PCR) (Not Detectd) 09/29/22 09/29/22 09/29/22 Range/Units 16:28 16:28 17:12 WBC (3.8-10.6) k/uL RBC (4.30-5.90) m/uL Hgb (13.0-17.5) gm/dL Hct (39.0-53.0) % MCV (80.0-100.0) fL MCH (25.0-35.0) pg MCHC (31.0-37.0) g/dL RDW (11.5-15.5) % Plt Count (150-450) k/uL MPV Neutrophils % % Lymphocytes % % Monocytes % % Eosinophils % % Basophils % % Neutrophils # (1.3-7.7) k/uL Lymphocytes # (1.0-4.8) k/uL Monocytes # (0-1.0) k/uL Eosinophils # (0-0.7) k/uL Basophils # (0-0.2) k/uL Hypochromasia Anisocytosis Microcytosis PT (9.0-12.0) sec INR (<1.2) APTT (22.0-30.0) sec Sodium (137-145) mmol/L Potassium (3.5-5.1) mmol/L Chloride (98-107) mmol/L Carbon Dioxide (22-30) mmol/L Anion Gap mmol/L BUN (9-20) mg/dL Creatinine (0.66-1.25) mg/dL Est GFR (CKD-EPI)AfAm (>60 ml/min/1.73 sqM) Est GFR (CKD-EPI)NonAf (>60 ml/min/1.73 sqM) Glucose (74-99) mg/dL Lactic Ac Sepsis Rflx Y Plasma Lactic Acid Vladimir 2.6 H* (0.7-2.0) mmol/L Calcium (8.4-10.2) mg/dL Total Bilirubin (0.2-1.3) mg/dL AST (17-59) U/L ALT (4-49) U/L Alkaline Phosphatase (38-126) U/L Total Protein (6.3-8.2) g/dL Albumin (3.5-5.0) g/dL Coronavirus (PCR) Not Detected (Not Detectd) 09/29/22 Range/Units 19:58 WBC (3.8-10.6) k/uL RBC (4.30-5.90) m/uL Hgb (13.0-17.5) gm/dL Hct (39.0-53.0) % MCV (80.0-100.0) fL MCH (25.0-35.0) pg MCHC (31.0-37.0) g/dL RDW (11.5-15.5) % Plt Count (150-450) k/uL MPV Neutrophils % % Lymphocytes % % Monocytes % % Eosinophils % % Basophils % % Neutrophils # (1.3-7.7) k/uL Lymphocytes # (1.0-4.8) k/uL Monocytes # (0-1.0) k/uL Eosinophils # (0-0.7) k/uL Basophils # (0-0.2) k/uL Hypochromasia Anisocytosis Microcytosis PT (9.0-12.0) sec INR (<1.2) APTT (22.0-30.0) sec Sodium (137-145) mmol/L Potassium (3.5-5.1) mmol/L Chloride (98-107) mmol/L Carbon Dioxide (22-30) mmol/L Anion Gap mmol/L BUN (9-20) mg/dL Creatinine (0.66-1.25) mg/dL Est GFR (CKD-EPI)AfAm (>60 ml/min/1.73 sqM) Est GFR (CKD-EPI)NonAf (>60 ml/min/1.73 sqM) Glucose (74-99) mg/dL Lactic Ac Sepsis Rflx Plasma Lactic Acid Vladimir 1.4 (0.7-2.0) mmol/L Calcium (8.4-10.2) mg/dL Total Bilirubin (0.2-1.3) mg/dL AST (17-59) U/L ALT (4-49) U/L Alkaline Phosphatase (38-126) U/L Total Protein (6.3-8.2) g/dL Albumin (3.5-5.0) g/dL Coronavirus (PCR) (Not Detectd) - Radiology Data Interpreted by me: Chest x-ray does show pulmonary edema consistent with CHF. Increased from prior. Probable underlying fibrosis Critical Care Time Critical Care Time: Yes Total Critical Care Time: 31 Disposition Clinical Impression: Hypoxia, BREANNA (acute kidney injury), Hyperkalemia Disposition: ADMITTED IP TO THIS HOSP Condition: Serious Is patient prescribed a controlled substance at d/c from ED?: No Referrals: [facility],Clinic [Primary Care Provider] - 1-2 days Time of Disposition: 20:29
[2022-09-29 16:57] LABS: INR 1.2 (<1.2); Partial Thromboplastin Time 24.1 sec (22.0-30.0); Prothrombin Time 12.2 sec (9.0-12.0)
[2022-09-29 17:10] LABS: Albumin 3.8 g/dL (3.5-5.0); Calcium 8.4 mg/dL (8.4-10.2); Total Bilirubin 1.1 mg/dL (0.2-1.3); Total Protein 7.2 g/dL (6.3-8.2)
[2022-09-29 17:12] LABS: Anisocytosis Slight; Basophils % (A) 1 %; Eosinophils # (A) 0.1 k/uL (0-0.7); Eosinophils % (A) 1 %; HCT 38.5 % (39.0-53.0); HGB 12.3 gm/dL (13.0-17.5); Hypochromasia Moderate; Lymphocytes % (A) 10 %; MCH 24.5 pg (25.0-35.0); MCV 76.5 fL (80.0-100.0); Mean Platelet Volume 9.3; Microcytosis Slight; Monocytes # (A) 0.5 k/uL (0-1.0); Monocytes % (A) 5 %; Neutrophils # (A) 7.8 k/uL (1.3-7.7); Neutrophils % (A) 82 %; Platelet Count 245 k/uL (150-450); RBC 5.03 m/uL (4.30-5.90); RDW 18.3 % (11.5-15.5); WBC 9.5 k/uL (3.8-10.6)
[2022-09-29] MEDS ORDERED: ONDANSETRON 4 MG/2 ML VIAL IVP STA (17:36)
--- NOTE | 2022-09-29 18:24 | XR ---
EXAMINATION TYPE: XR chest 2V DATE OF EXAM: 09/29/2022 COMPARISON: 03/11/2019 HISTORY: Difficulty breathing TECHNIQUE: 2 views FINDINGS: There is pulmonary interstitial and airspace edema. There are sternal wires. Costophrenic a ngles are clear. There are chest leads. IMPRESSION: There is pulmonary edema that is consistent with congestive heart failure which is signif icantly increased compared to the old exam. There is probably underlying pulmonary fibrosis.
[2022-09-29] MEDS ORDERED: INSULIN REGULAR 100 UNIT/ML VIAL (IV) IV ONE (20:33)
[2022-09-29] MEDS ORDERED: ALBUTEROL NEB (CONC) 2.5 MG/0.5 ML INHALATION ONE (20:33)
[2022-09-29] MEDS ORDERED: DEXTROSE 50% SYRINGE 50 ML IVP ONE (20:33)
[2022-09-29] MEDS ORDERED: NALOXONE 0.4 MG/ML 1 ML VIAL IVP PRN (20:34)
[2022-09-29] MEDS ORDERED: IPRATROPIUM-ALBUTEROL 3 ML NEB INHALATION PRN (20:34)
[2022-09-29] MEDS ORDERED: CALCIUM GLUCONATE IN NACL 1 GM in SALINE 1 100ML.BAG IVPB ONE (21:00)
[2022-09-29] MEDS: methylPREDNISolone SOD SUCCI 125 MG/2 ML VIAL IV SCH (21:01)
[2022-09-29 21:12] LABS: Glucose,Whole Blood 82 mg/dL (70-110)
[2022-09-29 21:28] LABS: Glucose,Whole Blood 159 mg/dL (70-110)
[2022-09-29 21:49] LABS: Glucose,Whole Blood 130 mg/dL (70-110)
[2022-09-29 22:38] LABS: Glucose,Whole Blood 108 mg/dL (70-110)
--- NOTE | 2022-09-29 23:25 | P.HPIM ---
History of Present Illness H&P Date: 09/29/22 The patient is a 81-year-old male with a PMH of CAD status post bypass in 2009 and multiple stents, hypertension, hyperlipidemia, and interstitial lung disease, chronic back respiratory failure on home oxygen who presented to the emergency room due to complaints of shortness of breath after running out of his home oxygen. The patient reports that he contacted the [facility] who told him that they won't be able to get him his home oxygen until tomorrow, and advised him to go to the emergency room. The patient also states however that he has been experiencing some shortness of breath over the past few days even prior to running out of oxygen. Reports a cough productive of white phlegm. Upon EMS arrival, the patient was noted to have an SpO2 in the 80s. He reported that his breathing had improved significantly after arrival at the emergency room. He denied experiencing lower extremity swelling or pain, orthopnea, chest discomfort, nausea, vomiting or diaphoresis, palpitations. Laboratory evaluation in the emergency room was reviewed and was remarkable for potassium 6.0, BUN 34, and creatinine 1.2 (previously 0.8). Chest x-ray was consistent with congestive heart failure as well as underlying pulmonary fibrosis. EKG revealed sinus rhythm at [address]/T-wave changes noted as reviewed by me. Review of systems: Pertinent positives and negatives as discussed in HPI, a complete review of systems was performed and all other systems are negative. Physical examination: General: non toxic, no distress, appears at stated age, normal weight Derm: no unusual rashes/lesions, warm Head: atraumatic, normocephalic, symmetric Eyes: EOMI, no lid lag, anicteric sclera, pupils equal round reactive to light ENT: Nose and ears atraumatic Neck: No cervical lymphadenopathy, trachea midline, supple Mouth: no lip lesion, mucus membranes moist Cardiovascular: S1S2 reg, no murmur, positive dorsalis pedis pulse bilateral, no edema Lungs: Scattered rales, no wheezing, no accessory muscle use Abdominal: soft, nontender to palpation, no guarding Ext: muscle strength 5 out of 5 in all 4 extremities grossly, no gross muscle atrophy, no contractures, Neuro: CN II-XI grossly intact, no gross focal neuro deficits Psych: Alert, oriented, appropriate affect Assessment/plan Acute on chronic hypoxic respiratory failure, suspect possible CHF superimposed with interstitial lung disease -Patient has a significant cardiac history although no diagnosed heart failure -Obtain echocardiogram -Cardiac monitoring -Obtain proBNP levels -Continue with Solu-Medrol and DuoNeb's Hyperkalemia -Possibly secondary to BREANNA -Hold off on IV fluids -Monitor BMP -Order Kayexalate BREANNA -As per above Microcytosis -Check iron studies DVT prophylaxis -IPCDs The patient is admitted with an anticipated greater than 2 midnight stay for evaluation of SOB CODE STATUS: Full Code Discussed with: Patient Anticipated discharge date: 10/[address]: Home Past Medical History Past Medical History: Coronary Artery Disease (CAD), COPD, Diabetes Mellitus, Deep Vein Thrombosis (DVT), Eye Disorder, GERD/Reflux, Hearing Disorder / Deafness, Hyperlipidemia, Hypertension, Osteoarthritis (OA), Pulmonary Embolus (PE), Respiratory Disorder, Thyroid Disorder Additional Past Medical History / Comment(s): RLS, SOB w/exertion, hx wgt loss, chronic cough. diet controlled diabetic, has hiatal hernia; "poss mesothelioma," uses O2 prn, unsure of dose. Rt eye prob. Hearing aids. idopathic pulmonary fibrosis, diet controlled dm dvt x4 had ct scan and lung bx sees dr campos hypothyroid. iron deficiency History of Any Multi-Drug Resistant Organisms: None Reported Past Surgical History: Bowel Resection, Coronary Bypass/CABG, Heart Catheterization With Stent, Tonsillectomy Additional Past Surgical History / Comment(s): Quad CABG 2009. Lt eye cataract 2018. Past Anesthesia/Blood Transfusion Reactions: No Reported Reaction, Motion Sickness Date of Last Stent Placement:: 2010 Smoking Status: Never smoker - Past Family History Father Family Medical History: Congestive Heart Failure (CHF) Additional Family Medical History / Comment(s): Parkinson Mother Family Medical History: Myocardial Infarction (LA) Medications and Allergies Home Medications Medication Instructions Recorded Confirmed Type Atorvastatin [Lipitor] 80 mg PO HS 05/23/15 09/29/22 History Omeprazole 20 mg PO HS 05/23/15 09/29/22 History Glucosamine-Chondr 500-400Mg 1 tab PO DAILY 02/14/19 09/29/22 History Nitroglycerin 0.4 mg SL DIRECTED PRN 03/04/21 09/29/22 History Meloxicam [Mobic] 7.5 mg PO BID 06/05/22 09/29/22 History [place]-3/Dha/Epa/Fish Oil [Fish Oil 1,000 mg PO BID 06/05/22 09/29/22 History 1,000 mg Softgel] Polyvinyl Alcohol/Povidone 1 drop BOTH EYES QID PRN 06/05/22 09/29/22 History [[place] Eye Drop] Aspirin EC [Ecotrin Low Dose] 81 mg PO HS 09/29/22 09/29/22 History Clopidogrel [Plavix] 75 mg PO DIRECTED 09/29/22 09/29/22 History Levothyroxine Sodium [Synthroid] 75 mcg PO DIRECTED 09/29/22 09/29/22 History Metoprolol Succinate (ER) [Toprol 25 mg PO DIRECTED 09/29/22 09/29/22 History Xl] Multivitamins, Thera [Multivitamin 1 tab PO DAILY 09/29/22 09/29/22 History (formulary)] Testosterone Cypionate 200 mg IM Q14D 09/29/22 09/29/22 History [Depo-Testosterone] Allergies Allergy/AdvReac Type Severity Reaction Status Date / Time heparin AdvReac caused Verified 09/29/22 16:40 blood clotting pravastatin AdvReac muscle pain Verified 09/29/22 16:40 simvastatin [From Zocor] AdvReac muscle pain Verified 09/29/22 16:40 Physical Exam Vitals: Vital Signs Temp Pulse Resp BP Pulse Ox 09/29/22 21:41 95 09/29/22 21:28 88 09/29/22 21:27 89 20 136/71 94 L 09/29/22 18:48 93 22 148/89 92 L 09/29/22 17:45 92 09/29/22 17:37 90 09/29/22 16:12 20 09/29/22 16:00 98.0 F 89 20 131/87 96 Intake and Output 09/29/22 09/29/22 09/30/22 14:59 22:59 06:59 Other: Weight 61.235 kg Results CBC & Chem 7: 09/29/22 16:28 09/29/22 16:28 Labs: Abnormal Lab Results - Last 24 Hours (Table) 09/29/22 09/29/22 09/29/22 Range/Units 16:28 16:28 16:28 Hgb 12.3 L (13.0-17.5) gm/dL Hct 38.5 L (39.0-53.0) % MCV 76.5 L (80.0-100.0) fL MCH 24.5 L (25.0-35.0) pg RDW 18.3 H (11.5-15.5) % Neutrophils # 7.8 H (1.3-7.7) k/uL PT 12.2 H (9.0-12.0) sec INR 1.2 H (<1.2) Sodium 134 L (137-145) mmol/L Potassium 6.0 H (3.5-5.1) mmol/L BUN 34 H (9-20) mg/dL Creatinine 1.27 H (0.66-1.25) mg/dL Glucose 106 H (74-99) mg/dL POC Glucose (mg/dL) (70-110) mg/dL Plasma Lactic Acid Vladimir (0.7-2.0) mmol/L 09/29/22 09/29/22 09/29/22 Range/Units 16:28 21:17 21:38 Hgb (13.0-17.5) gm/dL Hct (39.0-53.0) % MCV (80.0-100.0) fL MCH (25.0-35.0) pg RDW (11.5-15.5) % Neutrophils # (1.3-7.7) k/uL PT (9.0-12.0) sec INR (<1.2) Sodium (137-145) mmol/L Potassium (3.5-5.1) mmol/L BUN (9-20) mg/dL Creatinine (0.66-1.25) mg/dL Glucose (74-99) mg/dL POC Glucose (mg/dL) 159 H 130 H (70-110) mg/dL Plasma Lactic Acid Vladimir 2.6 H* (0.7-2.0) mmol/L
[2022-09-29] MEDS: METOPROLOL SUCCINATE (ER) 25 MG TAB.ER.24H PO SCH (23:50)
[2022-09-29] MEDS: CLOPIDOGREL 75 MG TAB PO SCH (23:50)
[2022-09-30] MEDS ORDERED: ONDANSETRON 4 MG/2 ML VIAL IVP STA (00:05)
[2022-09-30] MEDS ORDERED: ACETAMINOPHEN TAB 325 MG TAB PO PRN (01:05)
[2022-09-30] MEDS: methylPREDNISolone SOD SUCCI 125 MG/2 ML VIAL IV SCH ×3 (02:02→16:40)
[2022-09-30 04:10] VITALS: TEMP 97.6
[2022-09-30] MEDS ORDERED: LEVOTHYROXINE 75 MCG TAB PO SCH (06:30)
[2022-09-30 07:28] VITALS: RESP 18
[2022-09-30] MEDS: IPRATROPIUM-ALBUTEROL 3 ML NEB INHALATION SCH ×3 (08:10→14:46)
[2022-09-30 08:37] LABS: HCT 38.7 % (39.6-50.0); HGB 11.6 g/dL (13.0-17.0); MCH 22.7 pg (27.0-32.0); MCV 75.9 fL (80.0-97.0); Mean Platelet Volume 9.9 fL (9.5-12.2); NRBC Per 100 WBC 0 /100 WBCS (0.0-0.0); Platelet Count 258 X 10*3/uL (140-440); RDW 20.2 % (11.5-14.5); WBC 5.98 X 10*3/uL (4.50-10.00)
[2022-09-30 08:58] LABS: % Iron Saturation 4.16 (15.00-50.00); African American GFR (CKD) 76.1 (60.0-200.0); Anion Gap 14.3 mmol/L (10.00-18.00); BUN/Creat Ratio 26.54 Ratio (12.00-20.00); Blood Urea Nitrogen 28.4 mg/dL (9.0-27.0); Carbon Dioxide 20.3 mmol/L (20.0-27.5); Non-African American GFR(CKD) 65.7 (60.0-200.0); Potassium 5.2 mmol/L (3.5-5.5)
[2022-09-30] MEDS: METOPROLOL SUCCINATE (ER) 25 MG TAB.ER.24H PO SCH (10:08)
[2022-09-30] MEDS: CLOPIDOGREL 75 MG TAB PO SCH (10:08)
--- NOTE | 2022-09-30 10:17 | CA ---
Transthoracic Echo Report Name: Jose García Age: 81 Gender: M : 1940 Exam Date: 09/30/2022 08:04 Exam Location: [facility] Ht (in): 67 Wt (lb): 135 Ordering Physician: Qiana Aguirre MD Attending/Referring Phys: Hospital Chief Financial Officer France Allan RDCS Procedure CPT: Indications: chf Cardiac Hx: Technical Quality: Fair Contrast 1: Total Dose (mL): Contrast 2: Total Dose (mL): MEASUREMENTS (Male / Female) Normal Values 2D ECHO LV Diastolic Diameter PLAX 3.3 cm 4.2 - 5.9 / 3.9 - 5.3 cm LV Systolic Diameter PLAX 2.3 cm IVS Diastolic Thickness 1.1 cm 0.6 - 1.0 / 0.6 - 0.9 cm LVPW Diastolic Thickness 0.9 cm 0.6 - 1.0 / 0.6 - 0.9 cm LV Relative Wall Thickness 0.6 RV Internal Dim ED PLAX 2.7 cm LA Volume 39.3 cm??? 18 - 58 / 22 - 52 cm??? M-MODE Aortic Root Diameter MM 3.3 cm LA Systolic Diameter MM 2.5 cm LA Ao Ratio MM 0.8 AV Cusp Separation MM 2.0 cm DOPPLER AV Peak Velocity 100.6 cm/s AV Peak Gradient 4.0 mmHg AI Peak Velocity 270.4 cm/s AI Peak Gradient 29.2 mmHg AI Pressure Half Time 396.2 ms LVOT Peak Velocity 69.9 cm/s LVOT Peak Gradient 2.0 mmHg MV Area PHT 5.6 cm??? Mitral E Point Velocity 77.3 cm/s Mitral A Point Velocity 98.2 cm/s Mitral E to A Ratio 0.8 MV Deceleration Time 136.4 ms TR Peak Velocity 373.1 cm/s TR Peak Gradient 55.7 mmHg Right Ventricular Systolic Press 59.7 mmHg FINDINGS Left Ventricle Normal left ventricular systolic function with no obvious regional wall motion abnormalities. Left ventricular ejection fraction is estimated at 55-60 %. Abnormal (paradoxical) septal motion consistent with postoperative state. Right Ventricle Normal right ventricular size and function. Severe pulmonary hypertension. Right ventricular systolic pressure estimated at 60 mm hg. Right Atrium Normal right atrial size. Left Atrium Normal left atrial size. Mitral Valve Structurally normal mitral valve. Mitral valve thickened. Mild mitral annular calcification. [id number] mitral regurgitation. Posteriorly directed mitral regurgitation jet. Aortic Valve Trileaflet aortic valve. No aortic stenosis. Trace aortic regurgitation. Tricuspid Valve Moderate tricuspid regurgitation. Pulmonic Valve Trace pulmonic regurgitation. Pericardium No pericardial effusion. Aorta Normal size aortic root and proximal ascending aorta. CONCLUSIONS Left ventricular ejection fraction 55-60% RVSP 60 Mild to moderate mitral regurgitation Moderate tricuspid regurgitation No pericardial effusion Previewed by: Dr. Catalino Escamilla DO (Electronically Signed) Final Date: 30 September 2022 10:16
[2022-09-30] MEDS ORDERED: CALCIUM CARBONATE 500 MG CHEWABLE PO PRN (14:44)
[2022-09-30 16:42] VITALS: BP 126/87; PULSE 78
--- NOTE | 2022-09-30 17:14 | P.DS ---
Providers Date of admission: 09/29/22 20:34 Expected date of discharge: 09/30/22 Attending physician: Qiana Aguirre MD Primary care physician: [facility] Hospital Course: Discharge Diagnosis: Acute on chronic hypoxic respiratory failure Interstitial lung disease Severe pulmonary hypertension Hyperkalemia Acute kidney injury on chronic kidney disease Microcytosis Hospital Course: 81-year-old male with a PMH of CAD status post bypass in 2009 and multiple stents, hypertension, hyperlipidemia, and interstitial lung disease, chronic back respiratory failure on home oxygen who presented to the emergency room due to complaints of shortness of breath after running out of his home oxygen. The patient reports that he contacted the [facility] who told him that they won't be able to get him his home oxygen until tomorrow, and advised him to go to the emergency room. The patient also states however that he has been experiencing some shortness of breath over the past few days even prior to running out of oxygen. Reports a cough productive of white phlegm. Upon EMS arrival, the patient was noted to have an SpO2 in the 80s. He reported that his breathing had improved significantly after arrival at the emergency room. He denied experiencing lower extremity swelling or pain, orthopnea, chest discomfort, nausea, vomiting or diaphoresis, palpitations. Laboratory evaluation in the emergency room was reviewed and was remarkable for potassium 6.0, BUN 34, and creatinine 1.2 (previously 0.8). Chest x-ray was consistent with possible congestive heart failure as well as underlying pulmonary fibrosis. EKG revealed sinus rhythm at [address]/T-wave changes noted. Echocardiogram showed normal LV function with EF 55-60%, severe pulmonary hypertension with RVSP 60, mild to moderate MR, moderate TR. Does not have any clinical symptoms of CHF. Patient to be discharged home with home oxygen. Also will be discharged with short course of steroids. He needs close follow-up with pulmonology and his PCP . Creatinine improving, potassium improved with medical therapy. Also has iron deficiency anemia with iron level of 18, percent saturation of 4.16. Patient was discharged on oral iron. Patient will also need close follow-up for outpatient colonoscopy to evaluate for any malignancy, if not previously done. Patient seen and examined at bedside. Vital signs reviewed and stable. General: nontoxic, no distress, appears at stated age Derm: warm, dry Head: atraumatic, normocephalic, symmetric Eyes: EOMI, no lid lag, anicteric sclera Mouth: no lip lesion, mucus membranes moist Cardiovascular: S1S2 reg, no murmur Lungs: CTA bilateral, no rhonchi, no rales , no accessory muscle use, supplemental oxygen Abdominal: soft, nontender to palpation, no guarding, no appreciable organomegaly Ext: no gross muscle atrophy, no edema, no contractures Neuro: CN II-XI grossly intact, no focal neuro deficits Psych: Alert, oriented, appropriate affect A total of 38 minutes of time were spent preparing this complex discharge summary. Patient was discharged on 09/30/22 at 15:54. Patient Condition at Discharge: Stable Plan - Discharge Summary New Discharge Prescriptions: New Ferrous Sulfate [Feosol] 325 mg PO DAILY #30 tab predniSONE 50 mg PO DAILY #4 tablet Ascorbic Acid [Vitamin C chew] 500 mg PO DAILY #30 tab Continue Omeprazole 20 mg PO HS Atorvastatin [Lipitor] 80 mg PO HS Glucosamine-Chondr 500-400Mg 1 tab PO DAILY Nitroglycerin 0.4 mg SL Q5M PRN PRN Reason: Chest Pain [place]-3/Dha/Epa/Fish Oil [Fish Oil 1,000 mg Softgel] 1,000 mg PO BID Polyvinyl Alcohol/Povidone [[place] Eye Drop] 1 drop BOTH EYES QID PRN PRN Reason: Dry Eye(S) Multivitamins, Thera [Multivitamin (formulary)] 1 tab PO DAILY Testosterone Cypionate [Depo-Testosterone] 200 mg IM Q14D Aspirin EC [Ecotrin Low Dose] 81 mg PO HS Discontinued Meloxicam [Mobic] 7.5 mg PO BID Discharge Medication List Atorvastatin [Lipitor] 80 mg PO HS 05/23/15 [History] Omeprazole 20 mg PO HS 05/23/15 [History] Glucosamine-Chondr 500-400Mg 1 tab PO DAILY 02/14/19 [History] Nitroglycerin 0.4 mg SL Q5M PRN 03/04/21 [History] [place]-3/Dha/Epa/Fish Oil [Fish Oil 1,000 mg Softgel] 1,000 mg PO BID 06/05/22 [History] Polyvinyl Alcohol/Povidone [[place] Eye Drop] 1 drop BOTH EYES QID PRN 06/05/22 [History] Aspirin EC [Ecotrin Low Dose] 81 mg PO HS 09/29/22 [History] Multivitamins, Thera [Multivitamin (formulary)] 1 tab PO DAILY 09/29/22 [Hi story] Testosterone Cypionate [Depo-Testosterone] 200 mg IM Q14D 09/29/22 [History] Ascorbic Acid [Vitamin C chew] 500 mg PO DAILY #30 tab 09/30/22 [Rx] Ferrous Sulfate [Feosol] 325 mg PO DAILY #30 tab 09/30/22 [Rx] predniSONE 50 mg PO DAILY #4 tablet 09/30/22 [Rx] Follow up Appointment(s)/Referral(s): [facility],Clinic [Primary Care Provider] - 10/07/22 1:00 am Patient Instructions/Handouts: Using Oxygen at Home (ED), COPD (Chronic Obstructive Pulmonary Disease) (DC) Activity/Diet/Wound Care/Special Instructions: CT will be setting up a home care agency and contact you with information regarding the agency and visit schedule. [facility] is home oxygen supplier can be reached at [phone] Discharge Disposition: HOME WITH HOME HEALTH SERVICES
[2022-09-30] MEDS ORDERED: ATORVASTATIN 80 MG TAB PO SCH (21:00)
[2022-09-30] MEDS ORDERED: PANTOPRAZOLE 40 MG TABLET PO SCH (21:00)
[2022-09-30] MEDS ORDERED: ASPIRIN 81 MG PO SCH (21:00)
== END 2022-09-30 16:46 | disposition home health service (06) | DRG 196 ==
LOC: EC 15:55 → 4SSUR 20:34
PROVIDERS: ADMIT Internal Medicine; ATTEND Internal Medicine
DX: J84.112 Idiopathic pulmonary fibrosis (principal); J96.21 Acute and chronic respiratory failure with hypoxia; I13.0 Hypertensive heart and chronic kidney disease with heart failure and stage 1 through stage 4 chronic kidney disease, or unspecified chronic kidney disease; N17.9 Acute kidney failure, unspecified; Z20.822 Contact with and (suspected) exposure to COVID-19; N18.9 Chronic kidney disease, unspecified; I50.9 Heart failure, unspecified; I27.20 Pulmonary hypertension, unspecified; I25.10 Atherosclerotic heart disease of native coronary artery without angina pectoris; I08.1 Rheumatic disorders of both mitral and tricuspid valves; H91.90 Unspecified hearing loss, unspecified ear; G25.81 Restless legs syndrome; E87.5 Hyperkalemia; Z79.1 Long term (current) use of non-steroidal anti-inflammatories (NSAID); Z79.899 Other long term (current) drug therapy; M19.90 Unspecified osteoarthritis, unspecified site; Z86.711 Personal history of pulmonary embolism; Z95.1 Presence of aortocoronary bypass graft; Z79.890 Hormone replacement therapy; Z88.8 Allergy status to other drugs, medicaments and biological substances; E78.5 Hyperlipidemia, unspecified; E03.9 Hypothyroidism, unspecified; D50.9 Iron deficiency anemia, unspecified
CPT/HCPCS: 36415; 71046; 80048; 80053; 82728; 83540; 83550; 83605; 83880; 85025; 85027; 85610; 85730; 87635; 93005; 93306; 94640; 96374; 96375; 96376; 99291

== ENCOUNTER 2023-07-05 10:27 | Emergency (ER) | payer OTHER, MEDICARE ==
--- NOTE | 2023-07-05 11:12 | ED ---
Altered Mental Status HPI - General Chief Complaint: Altered Mental Status Stated Complaint: ALT MENTAL Time Seen by Provider: 07/05/23 10:36 Source: EMS Mode of arrival: EMS Limitations: altered mental status - History of Present Illness Initial Comments: 82-year-old male with past medical history significant for coronary artery disease s/p bypass 2009 with multiple stents, EF 55-60%, interstitial lung disease, and chronic respiratory failure on home oxygen presents to the ED with a chief complaint of altered mental status. Per PD, patient was found at [facility] parts confused. Patient was not wearing oxygen at this time. 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 At this time, patient reports no complaints. Denies chest pain, shortness of breath, confusion. No abdominal pain. Denies nausea, vomiting, diarrhea. No urinary changes. No other complaints. - Related Data Home Medications Medication Instructions Recorded Confirmed Atorvastatin [Lipitor] 80 mg PO HS 05/23/15 09/29/22 Omeprazole 20 mg PO HS 05/23/15 09/29/22 Glucosamine-Chondr 500-400Mg 1 tab PO DAILY 02/14/19 09/29/22 Nitroglycerin 0.4 mg SL Q5M PRN 03/04/21 09/30/22 Gatzke-3/Dha/Epa/Fish Oil [Fish Oil 1,000 mg PO BID 06/05/22 09/29/22 1,000 mg Softgel] Polyvinyl Alcohol/Povidone 1 drop BOTH EYES QID PRN 06/05/22 09/29/22 [Freshkote Eye Drop] Aspirin EC [Ecotrin Low Dose] 81 mg PO HS 09/29/22 09/29/22 Multivitamins, Thera [Multivitamin 1 tab PO DAILY 09/29/22 09/29/22 (formulary)] Testosterone Cypionate 200 mg IM Q14D 09/29/22 09/29/22 [Depo-Testosterone] Previous Rx's Medication Instructions Recorded Ascorbic Acid [Vitamin C chew] 500 mg PO DAILY #30 tab 09/30/22 Ferrous Sulfate [Feosol] 325 mg PO DAILY #30 tab 09/30/22 predniSONE 50 mg PO DAILY #4 tablet 09/30/22 Allergies Allergy/AdvReac Type Severity Reaction Status Date / Time heparin AdvReac caused Verified 07/05/23 10:58 blood clotting pravastatin AdvReac muscle pain Verified 07/05/23 10:58 simvastatin [From Zocor] AdvReac muscle pain Verified 07/05/23 10:58 Review of Systems ROS Statement: Those systems with pertinent positive or pertinent negative responses have been documented in the HPI. ROS Other: All systems not noted in ROS Statement are negative. Past Medical History Past Medical History: Coronary Artery Disease (CAD), COPD, Diabetes Mellitus, Deep Vein Thrombosis (DVT), Eye Disorder, GERD/Reflux, Hearing Disorder / Deafness, Hyperlipidemia, Hypertension, Osteoarthritis (OA), Pulmonary Embolus (PE), Respiratory Disorder, Thyroid Disorder Additional Past Medical History / Comment(s): RLS, SOB w/exertion, hx wgt loss, chronic cough. diet controlled diabetic, has hiatal hernia; "poss mesothelioma," uses O2 prn, unsure of dose. Rt eye prob. Hearing aids. idopathic pulmonary fibrosis, diet controlled dm dvt x4 had ct scan and lung bx sees dr campos hypothyroid. iron deficiency History of Any Multi-Drug Resistant Organisms: None Reported Past Surgical History: Bowel Resection, Coronary Bypass/CABG, Heart Catheterization With Stent, Tonsillectomy Additional Past Surgical History / Comment(s): Quad CABG 2009. Lt eye cataract 2019. Past Anesthesia/Blood Transfusion Reactions: No Reported Reaction, Motion Sickness Date of Last Stent Placement:: 2010 Past Psychological History: Depression Smoking Status: Never smoker - Past Family History Father Family Medical History: Congestive Heart Failure (CHF) Additional Family Medical History / Comment(s): Parkinson Mother Family Medical History: Myocardial Infarction (IA) General Exam Limitations: altered mental status General appearance: alert, in no apparent distress Eye exam: Present: normal appearance Neck exam: Present: normal inspection Respiratory exam: Present: normal lung sounds bilaterally Cardiovascular Exam: Present: regular rate, normal rhythm, systolic murmur (2/6) GI/Abdominal exam: Present: soft (No Tenderness to palpation. No rebound guarding or rigidity.) Neurological exam: Present: alert, oriented X3, CN II-XII intact Skin exam: Present: warm, dry Course Vital Signs 07/05/23 07/05/23 10:48 10:59 Pulse Rate 104 H Respiratory 24 Rate Blood Pressure 93/58 O2 Sat by Pulse 86 L 92 L Oximetry Medical Decision Making - Medical Decision Making Was pt. sent in by a medical professional or institution (PAUL Mullen, PROGRAM DIRECTOR/MUSIC DIRECTOR, urgent care, hospital, or [place] health care facility...) When possible be specific @ -No Did you speak to anyone other than the patient for history (EMS, parent, family, police, friend...)? What history was obtained from this source @ -No Did you review nursing and triage notes (agree or disagree)? Why? @ -I reviewed and agree with nursing and triage notes Were old charts reviewed (outside hosp., previous admission, EMS record, old EKG, old radiological studies, urgent care reports/EKG's, [place] health care facility records)? Report findings @ -No old charts were reviewed Differential Diagnosis (chest pain, altered mental status, abdominal pain women, abdominal pain men, vaginal bleeding, weakness, fever, dyspnea, syncope, headache, dizziness, GI bleed, back pain, seizure, CVA, palpatations, mental health, musculoskeletal)? @ -Differential Altered Mental Status: Hypoglycemia, DKA, hypercapnia, ETOH, overdose, CO poisoning, trauma, myxedema coma, HTN encephalopathy, infection, encephalitis, psychosis, intercranial he morrhage, hepatic encephalopathy, meningitis, CVA, this is not meant to be an all-inclusive list EKG interpreted by me (3pts min.). @ -As above X-rays interpreted by me (1pt min.). @ -X-ray did show cardiomegaly with multifocal patchy airspace opacities possibly representing pulmonary edema versus multifocal pneumonia. Interpreted by me. CT interpreted by me (1pt min.). @ -Acute brain showed no evidence of hemorrhage or other acute process. U/S interpreted by me (1pt. min.). @ -None done What testing was considered but not performed or refused? (CT, X-rays, U/S, labs)? Why? @ -None What meds were considered but not given or refused? Why? @ -None Did you discuss the management of the patient with other professionals (professionals i.e. PAUL Mullen, PROGRAM DIRECTOR/MUSIC DIRECTOR, lab, RT, psych nurse, social service coordinator, control system computer scientist, teacher, highway patrol officer, home health care case manager)? Give summary @ -No Was smoking cessation discussed for >3mins.? @ -No Was critical care preformed (if so, how long)? @ -No Were there social determinants of health that impacted care today? How? (H omelessness, low income, unemployed, alcoholism, drug addiction, transportation, low edu. Level, literacy, decrease access to med. care, fci, rehab)? @ -No Was there de-escalation of care discussed even if they declined (Discuss DNR or withdrawal of care, Hospice)? DNR status @ -No What co-morbidities impacted this encounter? (DM, HTN, Smoking, COPD, CAD, Cancer, CVA, ARF, Chemo, Hep., AIDS, mental health diagnosis, sleep apnea, morbid obesity)? @ -CAD, chronic respiratory failure Was patient admitted / discharged? Hospital course, mention meds given and route, prescriptions, significant lab abnormalities, going to OR and other pertinent info. @ -Discharge Laboratory studies reveal ABC unremarkable, blood gas shows pCO2 70, HCO3 36, and history panel largely unremarkable, Cephid negative. During patient's stay in the ED, has had no additional episodes of altered mental status or significant hypoxia. While in the ED, patient has no complaints other than asking for food. No cough. No shortness of breath. No chest pain. This time, patient reports that he would like to go home. X-ray did show cardiomegaly with multifocal patchy airspace opacities possibly representing pulmonary edema versus multifocal pneumonia or at this time has no complaints of cough, shortness of breath, fever. Patient discharged home in stable condition with family friend who will take him home. This family friend reports that he takes care of the patient and regularly fills up his oxygen tanks. Advised family friend to make sure the patient does not leave his house without wearing his oxygen. Thus return precautions with patient and his family friend who re gularly takes care of him and verbalized agreement. Undiagnosed new problem with uncertain prognosis? @ -No Drug Therapy requiring intensive monitoring for toxicity (Heparin, Nitro, Insulin, Cardizem)? @ -No Were any procedures done? @ -No Diagnosis/symptom? @ -Altered mental status Acute, or Chronic, or Acute on Chronic? @ -Acute Uncomplicated (without systemic symptoms) or Complicated (systemic symptoms)? @ -Uncomplicated Side effects of treatment? @ -No Exacerbation, Progression, or Severe Exacerbation? @ -No Poses a threat to life or bodily function? How? (Chest pain, USA, IA, pneumonia, PE, COPD, DKA, ARF, appy, cholecystitis, CVA, Diverticulitis, Homicidal, Suicid al, threat to staff... and all critical care pts) @ -No - Lab Data Result diagrams: 07/05/23 11:12 07/05/23 11:12 Lab Results 07/05/23 07/05/23 07/05/23 Range/Units 11:12 11:12 11:12 WBC 6.6 (3.8-10.6) k/uL RBC 4.50 (4.30-5.90) m/uL Hgb 12.8 L (13.0-17.5) gm/dL Hct 40.4 (39.0-53.0) % MCV 89.6 (80.0-100.0) fL MCH 28.5 (25.0-35.0) pg MCHC 31.8 (31.0-37.0) g/dL RDW 15.5 (11.5-15.5) % Plt Count 243 (150-450) k/uL MPV 7.4 Neutrophils % 76 % Lymphocytes % 14 % Monocytes % 6 % Eosinophils % 2 % Basophils % 1 % Neutrophils # 4.9 (1.3-7.7) k/uL Lymphocytes # 0.9 L (1.0-4.8) k/uL Monocytes # 0.4 (0-1.0) k/uL Eosinophils # 0.1 (0-0.7) k/uL Basophils # 0.0 (0-0.2) k/uL Hypochromasia Slight PT 10.7 (9.0-12.0) sec INR 1.0 (<1.2) APTT 25.0 (22.0-30.0) sec VBG pH (7.31-7.41) VBG pCO2 (37-51) mmHg VBG HCO3 (24-28) mmol/L Sodium 131 L (137-145) mmol/L Potassium 5.1 (3.5-5.1) mmol/L Chloride 93 L (98-107) mmol/L Carbon Dioxide 32 H (22-30) mmol/L Anion Gap 6 mmol/L BUN 19 (9-20) mg/dL Creatinine 0.60 L (0.66-1.25) mg/dL Est GFR (CKD-EPI)AfAm >90 (>60 ml/min/1.73 sqM) Est GFR (CKD-EPI)NonAf >90 (>60 ml/min/1.73 sqM) Glucose 109 H (74-99) mg/dL Plasma Lactic Acid Vladimir (0.7-2.0) mmol/L Calcium 8.8 (8.4-10.2) mg/dL Total Bilirubin 0.6 (0.2-1.3) mg/dL AST 33 (17-59) U/L ALT 19 (4-49) U/L Alkaline Phosphatase 82 (38-126) U/L Ammonia (<30) umol/L Troponin I (0.000-0.034) ng/mL NT-Pro-B Natriuret Pep 3770 pg/mL Total Protein 7.5 (6.3-8.2) g/dL Albumin 3.4 L (3.5-5.0) g/dL Influenza Type A (PCR) (Not Detectd) Influenza Type B (PCR) (Not Detectd) RSV (PCR) (Not Detectd) SARS-CoV-2 (PCR) (Not Detectd) 07/05/23 07/05/23 07/05/23 Range/Units 11:12 11:12 11:12 WBC (3.8-10.6) k/uL RBC (4.30-5.90) m/uL Hgb (13.0-17.5) gm/dL Hct (39.0-53.0) % MCV (80.0-100.0) fL MCH (25.0-35.0) pg MCHC (31.0-37.0) g/dL RDW (11.5-15.5) % Plt Count (150-450) k/uL MPV Neutrophils % % Lymphocytes % % Monocytes % % Eosinophils % % Basophils % % Neutrophils # (1.3-7.7) k/uL Lymphocytes # (1.0-4.8) k/uL Monocytes # (0-1.0) k/uL Eosinophils # (0-0.7) k/uL Basophils # (0-0.2) k/uL Hypochromasia PT (9.0-12.0) sec INR (<1.2) APTT (22.0-30.0) sec VBG pH 7.32 (7.31-7.41) VBG pCO2 70 H* (37-51) mmHg VBG HCO3 36 H (24-28) mmol/L Sodium (137-145) mmol/L Potassium (3.5-5.1) mmol/L Chloride (98-107) mmol/L Carbon Dioxide (22-30) mmol/L Anion Gap mmol/L BUN (9-20) mg/dL Creatinine (0.66-1.25) mg/dL Est GFR (CKD-EPI)AfAm (>60 ml/min/1.73 sqM) Est GFR (CKD-EPI)NonAf (>60 ml/min/1.73 sqM) Glucose (74-99) mg/dL Plasma Lactic Acid Vladimir 1.2 (0.7-2.0) mmol/L Calcium (8.4-10.2) mg/dL Total Bilirubin (0.2-1.3) mg/dL AST (17-59) U/L ALT (4-49) U/L Alkaline Phosphatase (38-126) U/L Ammonia <9 (<30) umol/L Troponin I <0.012 (0.000-0.034) ng/mL NT-Pro-B Natriuret Pep pg/mL Total Protein (6.3-8.2) g/dL Albumin (3.5-5.0) g/dL Influenza Type A (PCR) (Not Detectd) Influenza Type B (PCR) (Not Detectd) RSV (PCR) (Not Detectd) SARS-CoV-2 (PCR) (Not Detectd) 07/05/23 Range/Units 11:46 WBC (3.8-10.6) k/uL RBC (4.30-5.90) m/uL Hgb (13.0-17.5) gm/dL Hct (39.0-53.0) % MCV (80.0-100.0) fL MCH (25.0-35.0) pg MCHC (31.0-37.0) g/dL RDW (11.5-15.5) % Plt Count (150-450) k/uL MPV Neutrophils % % Lymphocytes % % Monocytes % % Eosinophils % % Basophils % % Neutrophils # (1.3-7.7) k/uL Lymphocytes # (1.0-4.8) k/uL Monocytes # (0-1.0) k/uL Eosinophils # (0-0.7) k/uL Basophils # (0-0.2) k/uL Hypochromasia PT (9.0-12.0) sec INR (<1.2) APTT (22.0-30.0) sec VBG pH (7.31-7.41) VBG pCO2 (37-51) mmHg VBG HCO3 (24-28) mmol/L Sodium (137-145) mmol/L Potassium (3.5-5.1) mmol/L Chloride (98-107) mmol/L Carbon Dioxide (22-30) mmol/L Anion Gap mmol/L BUN (9-20) mg/dL Creatinine (0.66-1.25) mg/dL Est GFR (CKD-EPI)AfAm (>60 ml/min/1.73 sqM) Est GFR (CKD-EPI)NonAf (>60 ml/min/1.73 sqM) Glucose (74-99) mg/dL Plasma Lactic Acid Vladimir (0.7-2.0) mmol/L Calcium (8.4-10.2) mg/dL Total Bilirubin (0.2-1.3) mg/dL AST (17-59) U/L ALT (4-49) U/L Alkaline Phosphatase (38-126) U/L Ammonia (<30) umol/L Troponin I (0.000-0.034) ng/mL NT-Pro-B Natriuret Pep pg/mL Total Protein (6.3-8.2) g/dL Albumin (3.5-5.0) g/dL Influenza Type A (PCR) Not Detected (Not Detectd) Influenza Type B (PCR) Not Detected (Not Detectd) RSV (PCR) Not Detected (Not Detectd) SARS-CoV-2 (PCR) Not Detected (Not Detectd) - EKG Data EKG Comments: EKG shows a sinus rhythm with ST segment changes in V2 and V3 with a first-degre e AV block with a OR interval of 211 ms, QRS 96, QT/QTc 360/423. Disposition Clinical Impression: Altered mental status Disposition: HOME SELF-CARE Condition: Good Instructions (If sedation given, give patient instructions): Altered Mental Status (ED) Additional Instructions: Please return to the Emergency Department if symptoms worsen or any other concerns. Please wear your oxygen as required. Is patient prescribed a controlled substance at d/c from ED?: No Referrals: [facility],Clinic [Primary Care Provider] - 1-2 days Time of Disposition: 13:33
[2023-07-05 11:45] LABS: Basophils % (A) 1 %; Eosinophils # (A) 0.1 k/uL (0-0.7); Eosinophils % (A) 2 %; HCT 40.4 % (39.0-53.0); HGB 12.8 gm/dL (13.0-17.5); Hypochromasia Slight; Lymphocytes # (A) 0.9 k/uL (1.0-4.8); Lymphocytes % (A) 14 %; MCH 28.5 pg (25.0-35.0); MCHC 31.8 g/dL (31.0-37.0); MCV 89.6 fL (80.0-100.0); Mean Platelet Volume 7.4; Monocytes # (A) 0.4 k/uL (0-1.0); Monocytes % (A) 6 %; Neutrophils # (A) 4.9 k/uL (1.3-7.7); Neutrophils % (A) 76 %; Platelet Count 243 k/uL (150-450); RDW 15.5 % (11.5-15.5); WBC 6.6 k/uL (3.8-10.6)
[2023-07-05 11:56] LABS: VBG PH 7.32 (7.31-7.41)
[2023-07-05 12:00] LABS: ALT 19 U/L (4-49); AST 33 U/L (17-59); African American GFR (CKD) >90 (>60 ml/min/1.73 sqM); Albumin 3.4 g/dL (3.5-5.0); Alkaline Phosphatase 82 U/L (38-126); Anion Gap 6 mmol/L; Blood Urea Nitrogen 19 mg/dL (9-20); Calcium 8.8 mg/dL (8.4-10.2); Carbon Dioxide 32 mmol/L (22-30); Chloride 93 mmol/L (98-107); Glucose 109 mg/dL (74-99); Non-African American GFR(CKD) >90 (>60 ml/min/1.73 sqM); Potassium 5.1 mmol/L (3.5-5.1); Sodium 131 mmol/L (137-145); Total Bilirubin 0.6 mg/dL (0.2-1.3); Total Protein 7.5 g/dL (6.3-8.2)
[2023-07-05 12:01] LABS: Lactic Acid, Venous 1.2 mmol/L (0.7-2.0)
[2023-07-05 12:09] LABS: NT-Pro-B-Type Natriuretic Pept 3770 pg/mL
[2023-07-05 12:11] LABS: Prothrombin Time 10.7 sec (9.0-12.0)
--- NOTE | 2023-07-05 12:16 | XR ---
EXAMINATION TYPE: XR chest 2V DATE OF EXAM: 07/05/2023 11:49 AM COMPARISON: Chest radiographs from 09/29/2022 TECHNIQUE: XR chest 2V Frontal and lateral views of the chest. CLINICAL INDICATION:Male, 82 years old with history of difficulty breathing; FINDINGS: Lungs/Pleura: No sizable pleural effusion. No pneumothorax. Multifocal patchy airspace opacities thro ughout the lungs. Heart/mediastinum: Cardiomediastinal silhouette is enlarged and stable. Musculoskeletal: No acute osseous pathology. Midline sternotomy wires are noted and stable. Other: IVC filter identified. IMPRESSION: Cardiomegaly with multifocal patchy airspace opacities throughout the lungs which may represent pulmo nary edema with CHF exacerbation versus multifocal pneumonia in the appropriate clinical setting.
--- NOTE | 2023-07-05 13:25 | CT ---
EXAMINATION TYPE: CT brain wo con DATE OF EXAM: 07/05/2023 COMPARISON: 316 HISTORY: Altered mental status CT DLP: 1100.4 mGycm Automated exposure control for dose reduction was used. FINDINGS: There is no acute intracranial hemorrhage or midline shift identified. There is diffuse ventricular a nd sulcal prominence consistent with diffuse age-related cerebral atrophy. There is low-attenuation i n the periventricular white matter consistent with chronic small vessel ischemic change. Hypodensitie s within the basal ganglia compatible with remote lacunar infarct. The globes are intact and the visu alized sinuses are clear. IMPRESSION: DEGENERATIVE AND REMOTE ISCHEMIC CHANGE WITH NO ACUTE HEMORRHAGE OR MASS EFFECT.
[2023-07-05 16:34] VITALS: BP 102/61; PULSE 102; RESP 18
== END 2023-07-05 16:24 | disposition home or self-care (01) ==
LOC: EC 10:27
DX: R41.82 Altered mental status, unspecified (principal); I25.10 Atherosclerotic heart disease of native coronary artery without angina pectoris; J44.9 Chronic obstructive pulmonary disease, unspecified; E11.9 Type 2 diabetes mellitus without complications; K21.9 Gastro-esophageal reflux disease without esophagitis; I10 Essential (primary) hypertension; Z79.82 Long term (current) use of aspirin; Z79.899 Other long term (current) drug therapy; Z88.8 Allergy status to other drugs, medicaments and biological substances; Z20.822 Contact with and (suspected) exposure to COVID-19
CPT/HCPCS: 36415; 70450; 71046; 80053; 82140; 82803; 83605; 83880; 84484; 85025; 85610; 85730; 87636; 93005; 99285